=== PATIENT | female | born 1960 | race African-American/Black ===

== ENCOUNTER 2016-11-21 14:00 | Observation (INO) | payer OTHER ==
[~2016-11-21] VITALS: Ht 175.3 cm; Wt 33.1 kg
[2016-11-21] VITALS (8 sets, daily range): BP systolic 122–184; BP diastolic 77–98; PULSE 64–89; RESP 15–18; TEMP 97.2–98.2; O2SAT 97–100
[~2016-11-21 14:00] MED LIST: BAYE325T3 PO; GABA100C2 PO; HYDR-3534 PO; LORTA5 PO; METO25CR PO; METO50TA PO; NITR.4 PO
[2016-11-21 14:48] LABS: AUTOMATED NEUTROPHIL # 4.4 TH/MM3 (1.8-7.7); BASOPHIL % 0.4 % (0.0-2.0); EOSINOPHIL # 0.1 TH/MM3 (0-0.4); EOSINOPHIL % 1.2 % (0.0-4.0); HEMO FLAGS DIFF FINAL; LYMPH % 25.5 % (9.0-44.0); LYMPHOCYTE # 1.9 TH/MM3 (1.0-4.8); MEAN CELL VOLUME 90.8 FL (80.0-100.0); MEAN CORPUSCULAR HEMOGLOBIN 31.3 PG (27.0-34.0); MEAN CORPUSCULAR HGB CONC 34.5 % (32.0-36.0); MONO % 14.4 % (0.0-8.0); NEUT % 58.5 % (16.0-70.0); PLATELET COUNT 196 TH/MM3 (150-450); RED CELL DISTRIBUTION WIDTH 13.5 % (11.6-17.2); WHITE BLOOD COUNT 7.5 TH/MM3 (4.0-11.0)
--- NOTE | 2016-11-21 14:49 | PD ---
HPI Chief Complaint: Dizziness Time Seen by Provider: 14:45 Travel History International Travel<30 days: No Contact w/Intl Traveler<30days: No Traveled to known affect area: No History of Present Illness HPI Patient is a 56-year-old female presenting to the emergency department for evaluation of dizziness and elevated blood pressure reading. Patient states she woke up this morning feeling dizzy, went to her pain management appointment at 10:30 where they took her vital signs and her blood pressure was elevated. She returned home and received a phone call from pain management asking her if she continued to feel dizzy and when patient said yes they advised her to come to the emergency department for evaluation. Patient states she woke up with mid sternal chest pain and shortness of breath as well. She was discharged from the hospital in [facility] at the end of October due to chest pain. She states that she had a negative heart catheterization at that time performed by Dr. Luigi Kaur. Her primary care provider is Dr. Buck. Her medical history is significant for hypertension, hyperlipidemia, paroxysmal atrial fibrillation. Patient is a former smoker, quitting one year ago. PFSH Past Medical History Arthritis: No Asthma: No Atrial Fibrillation: Yes Autoimmune Disease: No Anxiety: No Depression: Yes (PATIENT STATES SOMETIMES) Cancer: No High Cholesterol: Yes Chemotherapy: No Chest Pain: No Congestive Heart Failure: No COPD: No Cerebrovascular Accident: No Diabetes: No Diminished Hearing: No Endocrine: No Gastrointestinal Disorders: Yes GERD: Yes Genitourinary: Yes (PATIENT WAS HOSPITALIZED IN 1985 FOR A KIDNEY ISSUE, DOES NOT REMEMBER WHAT) Headaches: Yes Hiatal Hernia: No Hypertension: Yes Immune Disorder: No Kidney Stones: No Reproductive: No Respiratory: No Migraines: No Radiation Therapy: No Renal Failure: No Seizures: No Sickle Cell Disease: No Sleep Apnea: No Thyroid Disease: No Ulcer: No : 6 Para: 4 Miscarriage: 1 : 1 Tubal Ligation: Yes Past Surgical History Abdominal Surgery: No Cardiac Surgery: No Section: Yes Ear Surgery: No Endocrine Surgery: No Eye Surgery: No Genitourinary Surgery: No Gynecologic Surgery: Yes (, PARTIAL HYSTERECTOMY) Hysterectomy: Yes (PARTIAL) Oral Surgery: No Thoracic Surgery: No Social History Alcohol Use: Yes (1 DRINK DAILY) Tobacco Use: Yes (PK/DAY) Substance Use: Yes (MARIJUANA) Allergies-Medications (Allergen,Severity, Reaction): Coded Allergies: No Known Allergies (Verified , 08/13/13) Reported Meds & Prescriptions Reported Meds & Active Scripts Active Reported Valium (Diazepam) 10 Mg Tab 10 Mg PO ONCE PRN Temazepam 15 Mg Cap 15 Mg PO HS PRN Vitamin D3 (Cholecalciferol) 1,000 Unit Tab 1,000 Units PO DAILY Gabapentin 300 Mg Cap 300 Mg PO HS Tramadol (Tramadol HCl) 50 Mg Tab 50 Mg PO QID PRN Pantoprazole (Pantoprazole Sodium) 40 Mg Tab 40 Mg PO DAILY PRN Flexeril (Cyclobenzaprine HCl) 10 Mg Tab 10 Mg PO HS Buspirone (Buspirone HCl) 15 Mg Tab 15 Mg PO BID PRN Nitroglycerin SL (Nitroglycerin) 0.4 Mg Subl 0.4 Mg SL DIRECTED PRN ONE TABLET UNDER THE TONGUE NEEDED FOR CHEST PAIN, MAY REPEAT EVERY FIVE MINUTES FOR A TOTAL OF 3 DOSES OR CALL 911 IF NO RELIEF Metoprolol Tartrate 50 Mg Tab 50 Mg PO BID Lortab (Hydrocodone-Acetaminophen) 5-325 Mg Tab 1 Tab PO Q6H PRN Aspirin 325 Mg Tab 325 Mg PO DAILY Review of Systems Except as stated in HPI: all other systems reviewed are Neg HENT: No: Headaches Cardiovascular: Positive: Chest Pain or Discomfort Respiratory: Positive: Shortness of Breath Gastrointestinal: No: Nausea, Vomiting, Abdominal Pain Musculoskeletal: No: Myalgias Neurologic: Positive: Dizziness Physical Exam Narrative GENERAL: Well-developed, well-nourished, alert female. Resting comfortably in no acute distress. SKIN: Warm and dry. HEAD: Atraumatic. Normocephalic. EYES: Pupils equal and round. No scleral icterus. No injection or drainage. ENT: No nasal bleeding or discharge. Mucous membranes pink and moist. NECK: Trachea midline. No JVD. CARDIOVASCULAR: Regular rate and rhythm. No murmur appreciated. RESPIRATORY: No accessory muscle use. Clear to auscultation. Breath sounds equal bilaterally. GASTROINTESTINAL: Abdomen soft, non-tender, nondistended. Hepatic and splenic margins not palpable. MUSCULOSKELETAL: No obvious deformities. No clubbing. No cyanosis. No edema. NEUROLOGICAL: Awake and alert. No obvious cranial nerve deficits. Motor grossly within normal limits. Normal speech. PSYCHIATRIC: Appropriate mood and affect; insight and judgment normal. Data Data Last Documented VS Vital Signs Date Time Temp Pulse Resp B/P Pulse Ox O2 Delivery O2 Flow Rate FiO2 11/21/16 17:30 89 16 122/77 98 Room Air 11/21/16 14:02 98.2 Orders Electrocardiogram (11/21/16 ) Ckmb (Isoenzyme) Profile (11/21/16 14:26) Complete Blood Count With Diff (11/21/16 14:26) Comprehensive Metabolic Panel (11/21/16 14:26) Magnesium (Mg) (11/21/16 14:26) Prothrombin Time / Inr (Pt) (11/21/16 14:26) Act Partial Throm Time (Ptt) (11/21/16 14:26) Troponin I (11/21/16 14:26) Chest, Single Ap (11/21/16 14:26) CKMB (11/21/16 14:38) CKMB% (11/21/16 14:38) Mri Brain W/O Contrast (11/21/16 ) Enoxaparin Inj (Lovenox Inj) (11/21/16 18:15) Admit Order (Ed Use Only) (11/21/16 18:08) Labs Laboratory Tests Test 11/21/16 14:38 White Blood Count 7.5 TH/MM3 Red Blood Count 4.40 MIL/MM3 Hemoglobin 13.8 GM/DL Hematocrit 40.0 % Mean Corpuscular Volume 90.8 FL Mean Corpuscular Hemoglobin 31.3 PG Mean Corpuscular Hemoglobin 34.5 % Concent Red Cell Distribution Width 13.5 % Platelet Count 196 TH/MM3 Mean Platelet Volume 10.2 FL Neutrophils (%) (Auto) 58.5 % Lymphocytes (%) (Auto) 25.5 % Monocytes (%) (Auto) 14.4 % Eosinophils (%) (Auto) 1.2 % Basophils (%) (Auto) 0.4 % Neutrophils # (Auto) 4.4 TH/MM3 Lymphocytes # (Auto) 1.9 TH/MM3 Monocytes # (Auto) 1.1 TH/MM3 Eosinophils # (Auto) 0.1 TH/MM3 Basophils # (Auto) 0.0 TH/MM3 CBC Comment DIFF FINAL Differential Comment Prothrombin Time 11.8 SEC Prothromb Time International 1.1 RATIO Ratio Activated Partial 27.7 SEC Thromboplast Time Sodium Level 140 MEQ/L Potassium Level 3.6 MEQ/L Chloride Level 102 MEQ/L Carbon Dioxide Level 25.6 MEQ/L Anion Gap 12 MEQ/L Blood Urea Nitrogen 17 MG/DL Creatinine 0.86 MG/DL Estimat Glomerular Filtration 83 ML/MIN Rate Random Glucose 106 MG/DL Calcium Level 8.9 MG/DL Magnesium Level 1.5 MG/DL Total Bilirubin 0.5 MG/DL Aspartate Amino Transf 31 U/L (AST/SGOT) Alanine Aminotransferase 52 U/L (ALT/SGPT) Alkaline Phosphatase 82 U/L Total Creatine Kinase 316 U/L Creatine Kinase MB 1.0 NG/ML Creatine Kinase MB % 0.3 % Troponin I LESS THAN 0.02 NG/ML Total Protein 7.6 GM/DL Albumin 3.7 GM/DL MDM Medical Decision Making Medical Screen Exam Complete: Yes Emergency Medical Condition: Yes Interpretation(s) Vital Signs Date Time Temp Pulse Resp B/P Pulse Ox O2 Delivery O2 Flow Rate FiO2 11/21/16 14:02 98.2 80 15 184/98 98 Differential Diagnosis Hypertensive urgency versus unstable angina versus nstemi versus vertigo versus other Narrative Course Patient is a 56-year-old female presenting to emergency Department for evaluation of dizziness, chest pain, shortness of breath. Patient does have a significant past medical history as well as a recent workup and admission for chest pain in [facility]. Chest pain protocol initiated. Workup initiated triage, care patient will be transferred to a provider when a medical bed is available. Delfina Zurita Nov 21, 2016 14:49
--- NOTE | 2016-11-21 15:05 | RADRPT ---
EXAM DATE/TIME: 11/21/2016 14:54 [facility] COMPARISON: CHEST SINGLE AP, August 13, 2013, 20:51. INDICATIONS : Chest Pain MEDICAL HISTORY : Hypertension. Afib SURGICAL HISTORY : None. ENCOUNTER: Initial ACUITY: 1 day PAIN SCORE: 5/10 LOCATION: Bilateral chest FINDINGS: A single view of the chest demonstrates the lungs to be symmetrically aerated without evidence of mas s, infiltrate or effusion. The cardiomediastinal contours are unremarkable. Osseous structures are intact. CONCLUSION: No acute disease. Geoffrey Mckeon MD on November 21, 2016 at 15:00 Board Certified Radiologist. This report was verified electronically.
[2016-11-21 15:06] LABS: APTT (PATIENT) 27.7 SEC (24.3-30.1); INTERNATIONAL NORMALIZED RATIO 1.1 RATIO; PROTHROMBIN TIME - PATIENT 11.8 SEC (9.8-11.6)
[2016-11-21 15:12] LABS: ALT (GPT) 52 U/L (10-53); ANION GAP 12 MEQ/L (5-15); AST (GOT) 31 U/L (15-37); BICARBONATE 25.6 MEQ/L (21.0-32.0); BLOOD UREA NITROGEN 17 MG/DL (7-18); CHLORIDE 102 MEQ/L (98-107); GLOMERULAR FILTRATION RATE 83 ML/MIN (>89); MAGNESIUM 1.5 MG/DL (1.5-2.5); POTASSIUM 3.6 MEQ/L (3.5-5.1); SODIUM (NA) 140 MEQ/L (136-145)
[2016-11-21 15:15] LABS: ALKALINE PHOSPHATASE 82 U/L (45-117); CREATINE KINASE 316 U/L (26-192); TOTAL BILIRUBIN ADULT 0.5 MG/DL (0.2-1.0)
--- NOTE | 2016-11-21 16:45 | PD ---
Physical Exam Date Seen by Provider: Nov 21, 2016 Time Seen by Provider: 16:41 Narrative The patient is a 56-year-old after [place] female was initially evaluated in the emergency department and triaged by the mid-level provider. Please refer to the initial history, physical, diagnostic evaluation, and treatment modality plan. The patient was signed out with reevaluation of dizziness pending. Data Data Last Documented VS Vital Signs Date Time Temp Pulse Resp B/P Pulse Ox O2 Delivery O2 Flow Rate FiO2 11/21/16 15:44 70 16 158/95 99 Room Air 11/21/16 14:02 98.2 Orders Electrocardiogram (11/21/16 ) Ckmb (Isoenzyme) Profile (11/21/16 14:26) Complete Blood Count With Diff (11/21/16 14:) Comprehensive Metabolic Panel (11/21/16 14:) Magnesium (Mg) (11/21/16 14:26) Prothrombin Time / Inr (Pt) (11/21/16 14:26) Act Partial Throm Time (Ptt) (11/21/16 14:26) Troponin I (11/21/16 14:26) Chest, Single Ap (11/21/16 14:26) CKMB (11/21/16 14:38) CKMB% (11/21/16 14:38) Mri Brain W/O Contrast (11/21/16 ) Labs Laboratory Tests Test 11/21/16 14:38 White Blood Count 7.5 TH/MM3 Red Blood Count 4.40 MIL/MM3 Hemoglobin 13.8 GM/DL Hematocrit 40.0 % Mean Corpuscular Volume 90.8 FL Mean Corpuscular Hemoglobin 31.3 PG Mean Corpuscular Hemoglobin 34.5 % Concent Red Cell Distribution Width 13.5 % Platelet Count 196 TH/MM3 Mean Platelet Volume 10.2 FL Neutrophils (%) (Auto) 58.5 % Lymphocytes (%) (Auto) 25.5 % Monocytes (%) (Auto) 14.4 % Eosinophils (%) (Auto) 1.2 % Basophils (%) (Auto) 0.4 % Neutrophils # (Auto) 4.4 TH/MM3 Lymphocytes # (Auto) 1.9 TH/MM3 Monocytes # (Auto) 1.1 TH/MM3 Eosinophils # (Auto) 0.1 TH/MM3 Basophils # (Auto) 0.0 TH/MM3 CBC Comment DIFF FINAL Differential Comment Prothrombin Time 11.8 SEC Prothromb Time International 1.1 RATIO Ratio Activated Partial 27.7 SEC Thromboplast Time Sodium Level 140 MEQ/L Potassium Level 3.6 MEQ/L Chloride Level 102 MEQ/L Carbon Dioxide Level 25.6 MEQ/L Anion Gap 12 MEQ/L Blood Urea Nitrogen 17 MG/DL Creatinine 0.86 MG/DL Estimat Glomerular Filtration 83 ML/MIN Rate Random Glucose 106 MG/DL Calcium Level 8.9 MG/DL Magnesium Level 1.5 MG/DL Total Bilirubin 0.5 MG/DL Aspartate Amino Transf 31 U/L (AST/SGOT) Alanine Aminotransferase 52 U/L (ALT/SGPT) Alkaline Phosphatase 82 U/L Total Creatine Kinase 316 U/L Creatine Kinase MB 1.0 NG/ML Creatine Kinase MB % 0.3 % Troponin I LESS THAN 0.02 NG/ML Total Protein 7.6 GM/DL Albumin 3.7 GM/DL [facility] Medical Record Reviewed: Yes Supervised Visit with MATT: Yes Interpretation(s) Chest x-rays unremarkable Laboratory Tests Test 11/21/16 14:38 White Blood Count 7.5 TH/MM3 Red Blood Count 4.40 MIL/MM3 Hemoglobin 13.8 GM/DL Hematocrit 40.0 % Mean Corpuscular Volume 90.8 FL Mean Corpuscular Hemoglobin 31.3 PG Mean Corpuscular Hemoglobin 34.5 % Concent Red Cell Distribution Width 13.5 % Platelet Count 196 TH/MM3 Mean Platelet Volume 10.2 FL Neutrophils (%) (Auto) 58.5 % Lymphocytes (%) (Auto) 25.5 % Monocytes (%) (Auto) 14.4 % Eosinophils (%) (Auto) 1.2 % Basophils (%) (Auto) 0.4 % Neutrophils # (Auto) 4.4 TH/MM3 Lymphocytes # (Auto) 1.9 TH/MM3 Monocytes # (Auto) 1.1 TH/MM3 Eosinophils # (Auto) 0.1 TH/MM3 Basophils # (Auto) 0.0 TH/MM3 CBC Comment DIFF FINAL Differential Comment Prothrombin Time 11.8 SEC Prothromb Time International 1.1 RATIO Ratio Activated Partial 27.7 SEC Thromboplast Time Sodium Level 140 MEQ/L Potassium Level 3.6 MEQ/L Chloride Level 102 MEQ/L Carbon Dioxide Level 25.6 MEQ/L Anion Gap 12 MEQ/L Blood Urea Nitrogen 17 MG/DL Creatinine 0.86 MG/DL Estimat Glomerular Filtration 83 ML/MIN Rate Random Glucose 106 MG/DL Calcium Level 8.9 MG/DL Magnesium Level 1.5 MG/DL Total Bilirubin 0.5 MG/DL Aspartate Amino Transf 31 U/L (AST/SGOT) Alanine Aminotransferase 52 U/L (ALT/SGPT) Alkaline Phosphatase 82 U/L Total Creatine Kinase 316 U/L Creatine Kinase MB 1.0 NG/ML Creatine Kinase MB % 0.3 % Troponin I LESS THAN 0.02 NG/ML Total Protein 7.6 GM/DL Albumin 3.7 GM/DL EKG reveals sinus rhythm with a rate of 64. Inverted T waves noted in lead 3 and aVF. MRI of the brain reveals 2 small approximate 4 mm foci of increased signal seen at the superior medial right parietal lobe which may represent some minimal areas of infarction. Differential Diagnosis Differential diagnosis includes cerebellar infarct, acoustic neuroma, labyrinthitis, Mnire's disease, vertigo, hypertension, arrhythmia, peripheral vertigo. Narrative Course I, Dr. Neri, have reviewed the advance practice practitioner's documentation and am in agreement, met with the patient face to face, made the diagnosis, and the medical decision making was done by me. *My assessment and Findings: The patient is a 56-year-old female was initially evaluated by the mid-level provider. Please refer to the initial history, physical, diagnostic evaluation, treatment modality plan. Patient is intermittent history of dizziness which she describes as feeling off balance, occasional presyncopal, with lightheadedness. The patient states she has a history of dizziness and attributed it to cerumen impaction, states she's had her ears clear past which did help with her symptoms. However, the patient cleared her this time and her symptoms did not improve. The patient drove to her pain management doctor, who noted her blood pressure was significantly elevated, and referred her to the emergency department. The patient's blood pressure has improved, however, she continues to complain of symptoms. Physical examination was performed in the patient's EACs are clear. Cranial nerves II-12 are grossly intact. The patient had no drift of the upper or lower extremities. Alternating hand movements and finger to nose were normal. [id number] were normal. Sensation was symmetric on the upper and lower extremity bilaterally. However, patient had difficulty walking heel to toe and tandem and slight drift with Romberg, therefore, MRI the brain was ordered to rule out cerebellar infarct. MRI reveals 2 small approximate 4 mm foci of increased signal seen in the superior medial right parietal lobe which may represent some minimal areas of infarction. The patient does have a history of atrial fibrillation and hypertension, is currently in sinus rhythm. The patient 's dizziness may be secondary to CVA versus peripheral causes of vertigo/ dizziness, however, MRI is abnormal. Therefore, patient will be admitted and may benefit from ultrasound of the carotids, echocardiogram, and telemetry monitoring. The patient has [facility], therefore, the on-call [facility] physician was paged for admission. I discussed the patient with Dr. Bautista who agrees with admission. After discussion as patient does have a history of A. fib, patient was administered Lovenox 100 mg subcutaneous to cover her until echocardiogram can be performed to evaluate for atrial/ ventricular thrombus. The patient already took an aspirin this morning, 325 mg , therefore, another dose was not administered. Physician Communication Physician Communication I discussed the patient with Dr. Bautista who agrees with admission. Diagnosis Primary Impression: CVA (cerebral vascular accident) Qualified Code: I63.9 - Cerebrovascular accident (CVA), unspecified mechanism Additional Impressions: Hypertension Qualified Code: I10 - Essential hypertension Dizziness Admitting Information Admitting Physician Requests: Admit Condition: Stable Ignacio Neri MD Nov 21, 2016 16:45
--- NOTE | 2016-11-21 17:30 | RADRPT ---
EXAM DATE/TIME: 11/21/2016 16:59 [facility] COMPARISON: No previous studies available for comparison. INDICATIONS : CVA. Dizziness. MEDICAL HISTORY : Hypertension. SURGICAL HISTORY : section. Hysterectomy. Tubal ligation. ENCOUNTER: Subsequent ACUITY: 1 day PAIN SCORE: 5/10 LOCATION: cranial TECHNIQUE: Multiplanar, multisequence MRI of the brain was performed without contrast. FINDINGS: CEREBRUM: The ventricles are normal for age. No evidence of midline shift, mass lesion, hemorrhage or acute in farction. No extraaxial fluid collections are seen. The pituitary gland and suprasellar cistern are normal in configuration. There is a focal area of low signal seen in the right parietal region on th e SWI images likely related to an area of calcification in the posterior falx. WHITE MATTER: There are a few minimal areas of increased signal seen in the frontal white matter. POSTERIOR FOSSA: The cerebellum and brainstem are intact. The 4th ventricle is midline. The cerebellopontine angle is unremarkable. The cerebellar tonsils are normal in position. DIFFUSION IMAGING: There is minimal focal increased signal seen at the superior medial right parietal lobe. 2 small foci are seen measuring no more than 4 mm. EXTRACRANIAL: The visualized portions of the orbits and paranasal sinuses are unremarkable. CONCLUSION: 2 small approximate 4 mm foci of increased signal seen at the superior medial right parietal lobe whi ch may represent some minimal areas of infarction. Geoffrey Mckeon MD on November 21, 2016 at 17:21 Board Certified Radiologist. This report was verified electronically.
[2016-11-21] MEDS ORDERED: ENOXAPARIN SODIUM 100 MG/ML SYRINGE SQ ONE (18:15)
[2016-11-21] MEDS ORDERED: NITROGLYCERIN 0.4 MG SL 25 TABS/BTL SL PRN (18:30)
--- NOTE | 2016-11-21 18:54 | HHI.HP ---
HPI Service [facility] Hospitalists Primary Care Physician Kathleen Buck M.D. Admission Diagnosis CVA, dizziness, hypertension Chief Complaint: dizziness for a few days unsteady on feet sent by PCP and pain management to er Travel History International Travel<30 Days: No Contact w/Intl Traveler <30 Da: No Traveled to Known Affected Are: No History of Present Illness 56 y/o black female with history of paroxysmal atrial fib and has been on metoprolol 50 bid with 325 aspirin. Patient has for last couple of days has had increasing dizziness and some off balance and today had some atypical chest pain and mild shortness of breath . Patient had pain clinic appt for chronic pain and while at pain clinic it was noted she had increased blood pressure . Patient was given which she did not fill prescription of gabapentin and flexeril and ultram ,they called patient as did her PCP and was still dizzy and they recommended she come to er for evaluation. [place] er initially had elevated blood pressure but that came down . Ekg showed t wave inversion 3 avf and patient did state was in hospital in [facility] and had negative cath about 1 month ago. Patient underwent MRI brain which showed 2 foci of increased signal rt parietal lobe suggestive of infarct . Patient will be admitted for further work up. Patient has had in past several episodes of dizziness but was related to cerumen impaction. Patient denies any nausea ,vomit,diaphoresis and SOB has improved and does still have some mild chest discomfort but seems to be associated with movement. Review of Systems Constitutional: COMPLAINS OF: Dizziness Cardiovascular: COMPLAINS OF: Chest pain Neurologic: COMPLAINS OF: Abnormal gait Past Family Social History Past Medical History paroxysmal afib,hyperlipidemia,hypertension GERD,headaches Past Surgical History partial hysterectomy Reported Medications metoprolol 50 bid asa 325,lortab 5/325 for pain Allergies: Coded Allergies: No Known Allergies (Verified , 08/13/13) Social History 1 drink a day former smoker last 1 year ago ,positive marijuana Physical Exam Vital Signs Vital Signs Date Time Temp Pulse Resp B/P Pulse Ox O2 Delivery O2 Flow Rate FiO2 11/21/16 18:27 66 18 165/88 100 Room Air 11/21/16 17:30 89 16 122/77 98 Room Air 11/21/16 15:44 70 16 158/95 99 Room Air 11/21/16 15:44 99 Room Air 11/21/16 14:02 98.2 80 15 184/98 98 Physical Exam GENERAL: This is a well-nourished, well-developed patient, in no apparent distress. SKIN: No rashes, ecchymoses or lesions. Cool and dry. HEAD: Atraumatic. Normocephalic. No temporal or scalp tenderness. EYES: Pupils equal round and reactive. Extraocular motions intact. No scleral icterus. No injection or drainage. ENT: Nose without bleeding, purulent drainage or septal hematoma. Throat without erythema, tonsillar hypertrophy or exudate. Uvula midline. Airway patent.ears no cerumen NECK: Trachea midline. No JVD or lymphadenopathy. Supple, nontender, no meningeal signs. CARDIOVASCULAR: Regular rate and rhythm without murmurs, gallops, or rubs. RESPIRATORY: Clear to auscultation. Breath sounds equal bilaterally. No wheezes , rales, or rhonchi. GASTROINTESTINAL: Abdomen soft, non-tender, nondistended. No hepato-splenomegaly , or palpable masses. No guarding. MUSCULOSKELETAL: Extremities without clubbing, cyanosis, or edema. No joint tenderness, effusion, or edema noted. No calf tenderness. Negative Homans sign bilaterally. NEUROLOGICAL: Awake and alert. Cranial nerves II through XII intact. Motor and sensory grossly within normal limits. Five out of 5 muscle strength in all muscle groups. Normal speech. Laboratory Laboratory Tests Test 11/21/16 14:38 White Blood Count 7.5 Red Blood Count 4.40 Hemoglobin 13.8 Hematocrit 40.0 Mean Corpuscular Volume 90.8 Mean Corpuscular Hemoglobin 31.3 Mean Corpuscular Hemoglobin 34.5 Concent Red Cell Distribution Width 13.5 Platelet Count 196 Mean Platelet Volume 10.2 Neutrophils (%) (Auto) 58.5 Lymphocytes (%) (Auto) 25.5 Monocytes (%) (Auto) 14.4 Eosinophils (%) (Auto) 1.2 Basophils (%) (Auto) 0.4 Neutrophils # (Auto) 4.4 Lymphocytes # (Auto) 1.9 Monocytes # (Auto) 1.1 Eosinophils # (Auto) 0.1 Basophils # (Auto) 0.0 CBC Comment DIFF FINAL Differential Comment Prothrombin Time 11.8 Prothromb Time International 1.1 Ratio Activated Partial 27.7 Thromboplast Time Sodium Level 140 Potassium Level 3.6 Chloride Level 102 Carbon Dioxide Level 25.6 Anion Gap 12 Blood Urea Nitrogen 17 Creatinine 0.86 Estimat Glomerular Filtration 83 Rate Random Glucose 106 Calcium Level 8.9 Magnesium Level 1.5 Total Bilirubin 0.5 Aspartate Amino Transf 31 (AST/SGOT) Alanine Aminotransferase 52 (ALT/SGPT) Alkaline Phosphatase 82 Total Creatine Kinase 316 Creatine Kinase MB 1.0 Creatine Kinase MB % 0.3 Troponin I LESS THAN 0.02 Total Protein 7.6 Albumin 3.7 Result Diagram: 11/21/16 1438 11/21/16 1438 Imaging Last 24 hours Impressions Chest X-Ray 11/21/16 1426 Signed Impressions: Service Date/Time: Monday, November 21, 2016 14:54 - CONCLUSION: No acute disease. Geoffrey Mckeon MD MRI-2 smal foci increased signal rt parietal lobe suggesting infarct Course ekg NSR t wave 3 ,avf no acute changes Assessment and Plan Problem List: (1) CVA (cerebral vascular accident) Status: Acute Plan: will continue asa and was given lovenox times 1 100 mg will obtain neuro consult and carotid ultrasound and 2d echo (2) Hypertension Status: Chronic Plan: on metoprolol for hypertension and hx a fib will continue use prn meds for any elevation according to patient was on some type diuretic at home (3) Dizziness Status: Acute Plan: acute on chronic may be related to abnormal MRI vs hypertension (4) Paroxysmal atrial fibrillation Status: Chronic Plan: in sinus now will continue metoprolol get 2d echo cardiac evaluation (5) Chest pain Status: Acute Plan: seems more non cardaic will recheck labs in am and ekg as does have hx parox a fib will get cardiac evaluation as well according to patient recent normal cath Assessment and Plan further plan as case develops Code Status full Discussed Condition With patient Physician Certification 2 Midnight Certification Type: Admission for Inpatient Services Order for Inpatient Services The services are ordered in accordance with Medicare regulations or non- Medicare payer requirements, as applicable. In the case of services not specified as inpatient-only, they are appropriately provided as inpatient services in accordance with the 2-midnight benchmark. Estimated LOS (days): 2 2 days is the estimated time the patient will need to remain in the hospital, assuming treatment plan goals are met and no additional complications. Post-Hospital Plan: Not yet determined Problem Qualifiers (1) CVA (cerebral vascular accident): Qualified Code: I63.9 - Cerebrovascular accident (CVA), unspecified mechanism (2) Hypertension: Qualified Code: I10 - Essential hypertension Phil Bautista MD Nov 21, 2016 18:54
[2016-11-21] MEDS ORDERED: NALOXONE HCL 0.4 MG/ML AMP IV PRN (19:00)
[2016-11-21] MEDS ORDERED: ENALAPRILAT 1.25 MG/ML VIAL IV PUSH PRN (19:00)
[2016-11-21] MEDS ORDERED: BISACODYL 10 MG SUPP PR PRN (19:00)
[2016-11-21] MEDS ORDERED: SODIUM CHLORIDE 0.9% FLUSH 5 ML FLUSH FLUSH PRN (19:00)
[2016-11-21] MEDS ORDERED: HYDR-3533 PO (19:28)
[2016-11-21] MEDS ORDERED: ASPI325T PO (19:28)
[2016-11-21] MEDS ORDERED: METO50TA PO (19:28)
[2016-11-21] MEDS ORDERED: NITR1SUB3 SL (19:28)
[2016-11-21] MEDS ORDERED: DIAZ10 PO (19:48)
[2016-11-21] MEDS ORDERED: VITA100018 PO (19:48)
[2016-11-21] MEDS ORDERED: TRAM50TA PO (19:48)
[2016-11-21] MEDS ORDERED: TEMA15CA PO (19:48)
[2016-11-21] MEDS ORDERED: PANT40TA3 PO (19:48)
[2016-11-21] MEDS ORDERED: CYCL1TAB29 PO (19:48)
[2016-11-21] MEDS ORDERED: GABA300C5 PO (19:48)
[2016-11-21] MEDS ORDERED: BUSP15TA PO (19:48)
[2016-11-21] MEDS ORDERED: HYDR25TA5 PO (20:28)
[2016-11-21] MEDS: METOPROLOL TARTRATE 50 MG TAB PO SCH (21:35)
[2016-11-21] MEDS: ACETAMINOPHEN/HYDROcodone 325 MG/5 MG TAB PO PRN (21:36)
[2016-11-21] MEDS: SODIUM CHLORIDE 0.9% FLUSH 5 ML FLUSH FLUSH SCH (21:36)
--- NOTE | 2016-11-21 22:11 | RADRPT ---
EXAM DATE/TIME: 11/21/2016 21:34 [facility] COMPARISON: No previous studies available for comparison. INDICATIONS : Cerebrovascular accident. MEDICAL HISTORY : Hypertension. Gastroesophageal reflux disease. Afib. SURGICAL HISTORY : Catheteriaztion. Partial hysterectomy. ENCOUNTER: Initial ACUITY: 1 day PAIN SCORE: 6/10 LOCATION: Bilateral neck PEAK SYSTOLIC VELOCITIES (cm/sec): ICA/CCA RATIO: Right: 1.4 Left: 0.9 ICA: Right: 124 Left: 95 CCA: Right: 89 Left: 105 ECA: Right: 94 Left: 77 VERTEBRAL: Right: 58 antegrade Left: 74 antegrade Elevated flow velocities and ICA/CCA ratios have been found to correlate with increased degrees of vessel stenosis, calculated as percentage of diameter relative to a normal segment of distal ICA/CCA FINDINGS: RIGHT CAROTID: No significant stenosis is visualized. The waveforms are within normal limits. LEFT CAROTID: There is mild soft plaquing at the bifurcation. No significant stenosis is visualized. The waveforms are within normal limits. VERTEBRAL ARTERIES: Antegrade flow is seen in both vertebral arteries. MISCELLANEOUS: None. CONCLUSION: 1. Mild soft plaquing at the left carotid bifurcation. 2. No focal high-grade or hemodynamically significant stenosis. Carmelo Bailey MD on November 21, 2016 at 22:08 Board Certified Radiologist. This report was verified electronically.
[2016-11-21] MEDS: TEMAZEPAM 15 MG CAP PO PRN (22:16)
[2016-11-22 00:08] VITALS: BP 107/60; PULSE 73; RESP 18; TEMP 97.9; O2SAT 97
[2016-11-22 04:00] VITALS: BP 113/61; PULSE 67; RESP 18; TEMP 96.4; O2SAT 96
[2016-11-22 07:32] VITALS: BP 125/72; PULSE 75; RESP 18; TEMP 96.6; O2SAT 97
[2016-11-22] MEDS: METOPROLOL TARTRATE 50 MG TAB PO SCH ×2 (07:47→21:06)
[2016-11-22] MEDS: ASPIRIN EC 325 MG TABEC PO SCH (07:47)
[2016-11-22] MEDS: ACETAMINOPHEN/HYDROcodone 325 MG/5 MG TAB PO PRN ×2 (07:47→21:06)
[2016-11-22] MEDS: PANTOPRAZOLE SOD 40 MG DELAYED RELEASE TAB PO SCH (07:47)
--- NOTE | 2016-11-22 07:50 | PD.CONS ---
HPI Service CV Consult Requested By Dr. Bautista Reason for Consult paroxysmal afib, CVA Primary Care Physician Kathleen Buck M.D. History of Present Illness 56 yo AAF with history of paroxysmal afib and HTN who presented to pain management yesterday with elevated BP and dizziness, PCP then directed her to ED for admission. She admits to feeling palpitations earlier this week while shopping and intermittent dizziness. She was diagnosed with pafib in 2012 and has been maintained on bb and ASA. Sep 2016 she was admitted to [facility] for chest pain and ultimately had a normal heart catheterization. This morning she continues to feel "a little out of it". Denies chest pain or SOB. (Tata Porras) Review of Systems Consitutional: DENIES: Fever, Chills, Weight gain, Weight loss Respiratory: DENIES: Cough, Snoring, Shortness of breath, Wheezing, Sputum production Cardiovascular: DENIES: Chest pain, Syncope, Tachycardia Gastrointestinal: DENIES: Nausea, Vomiting, Change in bowel habits, Reflux, Bloody stools, Melena (Tata Porras) Past Family Social History Allergies: Coded Allergies: No Known Allergies (Verified , 08/13/13) Past Medical History paroxysmal afib,hyperlipidemia,hypertension GERD,headaches Past Surgical History partial hysterectomy Reported Medications Reported Meds & Active Scripts Active Reported Hydrochlorothiazide 25 Mg Tab 25 Mg PO DAILY Valium (Diazepam) 10 Mg Tab 10 Mg PO ONCE PRN Temazepam 15 Mg Cap 15 Mg PO HS PRN Vitamin D3 (Cholecalciferol) 1,000 Unit Tab 1,000 Units PO DAILY Gabapentin 300 Mg Cap 300 Mg PO HS Tramadol (Tramadol HCl) 50 Mg Tab 50 Mg PO QID PRN Pantoprazole (Pantoprazole Sodium) 40 Mg Tab 40 Mg PO DAILY PRN Flexeril (Cyclobenzaprine HCl) 10 Mg Tab 10 Mg PO HS Buspirone (Buspirone HCl) 15 Mg Tab 15 Mg PO BID PRN Nitroglycerin SL (Nitroglycerin) 0.4 Mg Subl 0.4 Mg SL DIRECTED PRN ONE TABLET UNDER THE TONGUE NEEDED FOR CHEST PAIN, MAY REPEAT EVERY FIVE MINUTES FOR A TOTAL OF 3 DOSES OR CALL 911 IF NO RELIEF Metoprolol Tartrate 50 Mg Tab 50 Mg PO BID Lortab (Hydrocodone-Acetaminophen) 5-325 Mg Tab 1 Tab PO Q6H PRN Aspirin 325 Mg Tab 325 Mg PO DAILY Active Ordered Medications Current Medications Medications (Trade) Dose Ordered Sig/Gemini Route Start Time Stop Time Status Last Admin (Ecotrin Ec) 325 mg DAILY PO 11/22/16 09:00 ([place] 5-325 Mg) 1 tab Q6H PRN PO 11/21/16 18:30 11/21/16 21:36 (Lopressor) 50 mg BID PO 11/21/16 21:00 11/21/16 21:35 (Nitrostat Sl) 0.4 mg UNSCH PRN SL 11/21/16 18:30 (Vasotec Inj) 1.25 mg Q6H PRN IV PUSH 11/21/16 19:00 (NS Flush) 2 ml UNSCH PRN FLUSH 11/21/16 19:00 (NS Flush) 2 ml BID FLUSH 11/21/16 21:00 11/21/16 21:36 (Dulcolax Supp) 10 mg DAILY PRN HI 11/21/16 19:00 (Narcan Inj) 0.4 mg UNSCH PRN IV 11/21/16 19:00 (Restoril) 15 mg HS PRN PO 11/21/16 20:45 11/21/16 22:16 (Protonix) 40 mg DAILY PO 11/22/16 09:00 Family History non contributory Social History 1 drink a day former smoker last 1 year ago ,positive marijuana (Tata Porras) Physical Exam Vital Signs Vital Signs Date Time Temp Pulse Resp B/P Pulse Ox O2 Delivery O2 Flow Rate FiO2 11/22/16 07:32 96.6 75 18 125/72 97 11/22/16 04:00 96.4 67 18 113/61 96 11/22/16 00:08 97.9 73 18 107/60 97 11/21/16 23:00 78 11/21/16 20:18 97.2 69 18 139/92 97 11/21/16 19:17 64 18 152/86 99 Room Air 11/21/16 18:27 66 18 165/88 100 Room Air 11/21/16 17:30 89 16 122/77 98 Room Air 11/21/16 15:44 70 16 158/95 99 Room Air 11/21/16 15:44 99 Room Air 11/21/16 14:02 98.2 80 15 184/98 98 Physical Exam SKIN: Warm and dry. ENT: No nasal bleeding or discharge. NECK: Trachea midline. No JVD. CARDIOVASCULAR: Regular rate and rhythm. No murmurs RESPIRATORY: No accessory muscle use. Clear to auscultation. Breath sounds equal bilaterally. GASTROINTESTINAL: Abdomen soft, non-tender, nondistended. MUSCULOSKELETAL: Extremities without clubbing, cyanosis, or edema. No obvious deformities. NEUROLOGICAL: Awake and alert. No obvious cranial nerve deficits. Normal speech. PSYCHIATRIC: Appropriate mood and affect; insight and judgment normal. Laboratory Laboratory Tests Test 11/21/16 14:38 White Blood Count 7.5 Red Blood Count 4.40 Hemoglobin 13.8 Hematocrit 40.0 Mean Corpuscular Volume 90.8 Mean Corpuscular Hemoglobin 31.3 Mean Corpuscular Hemoglobin 34.5 Concent Red Cell Distribution Width 13.5 Platelet Count 196 Mean Platelet Volume 10.2 Neutrophils (%) (Auto) 58.5 Lymphocytes (%) (Auto) 25.5 Monocytes (%) (Auto) 14.4 Eosinophils (%) (Auto) 1.2 Basophils (%) (Auto) 0.4 Neutrophils # (Auto) 4.4 Lymphocytes # (Auto) 1.9 Monocytes # (Auto) 1.1 Eosinophils # (Auto) 0.1 Basophils # (Auto) 0.0 CBC Comment DIFF FINAL Differential Comment Prothrombin Time 11.8 Prothromb Time International 1.1 Ratio Activated Partial 27.7 Thromboplast Time Sodium Level 140 Potassium Level 3.6 Chloride Level 102 Carbon Dioxide Level 25.6 Anion Gap 12 Blood Urea Nitrogen 17 Creatinine 0.86 Estimat Glomerular Filtration 83 Rate Random Glucose 106 Calcium Level 8.9 Magnesium Level 1.5 Total Bilirubin 0.5 Aspartate Amino Transf 31 (AST/SGOT) Alanine Aminotransferase 52 (ALT/SGPT) Alkaline Phosphatase 82 Total Creatine Kinase 316 Creatine Kinase MB 1.0 Creatine Kinase MB % 0.3 Troponin I LESS THAN 0.02 Total Protein 7.6 Albumin 3.7 (Tata Porras) Result Diagram: 11/21/16 1438 11/21/16 1438 Imaging Last Impressions Chest X-Ray 11/21/16 1426 Signed Impressions: Service Date/Time: Monday, November 21, 2016 14:54 - CONCLUSION: No acute disease. Geoffrey Mckeon MD Carotid Artery Ultrasound 11/21/16 0000 Signed Impressions: Service Date/Time: Monday, November 21, 2016 21:34 - CONCLUSION: 1. Mild soft plaquing at the left carotid bifurcation. 2. No focal high-grade or hemodynamically significant stenosis. Carmelo Bailey MD Brain MRI 11/21/16 0000 Signed Impressions: Service Date/Time: Monday, November 21, 2016 16:59 - CONCLUSION: 2 small approximate 4 mm foci of increased signal seen at the superior medial right parietal lobe which may represent some minimal areas of infarction. Geoffrey Mckeon MD (Tata Porras) Assessment and Plan Problem List: (1) Paroxysmal atrial fibrillation (2) CVA (cerebral vascular accident) (3) Hypertension Assessment and Plan 56 yo AAF with history of pafib and HTN admitted for dizziness and HTN. pafib- tele reviewed, remains in NSR. cont metoprolol and ASA. CHADS-VASC=4, in light of recent CVA will need to start anticoagulant HTN- SBP has normalized (Tata Porras) Assessment and Plan afib CVA start oral antiocoagulant if ok with neuro currently NSR asa 81 if anticoagulation started will sign off call with further questions (Denzel Clark MD) Problem Qualifiers (1) CVA (cerebral vascular accident): Qualified Code: I63.9 - Cerebrovascular accident (CVA), unspecified mechanism (2) Hypertension: Qualified Code: I10 - Essential hypertension Tata Porras Nov 22, 2016 07:50 Denzel Clark MD Nov 22, 2016 08:13
[2016-11-22] MEDS: SODIUM CHLORIDE 0.9% FLUSH 5 ML FLUSH FLUSH SCH ×2 (08:48→21:06)
--- NOTE | 2016-11-22 11:05 | MB ---
cc: EILEEN HERNANDEZ M.D. DATE OF CONSULTATION 11/22/2016 REASON FOR CONSULTATION This is a 56-year-old woman with a history of atrial fibrillation, paroxysmal. She comes in because of dizziness. It is a bit difficult but she has been having some dizziness for the past couple of months. It may be positional, but difficult to say. At times, she seems to indicate vertigo, but there are no other symptoms such as nausea, vomiting, no headaches, no double vision, no paresthesias. She was in pain management yesterday. She has been in pain management for the lower back and she was dizzy and hypertensive and she was brought to the hospital. An MRI of the brain showed some possible two areas of very tiny infarcts in the right parietal lobe. NEUROLOGICAL EXAM Neurologic exam is essentially normal at bedside. She is alert, pleasant, and oriented. Mentation normal. Ocular movements, Visual key full. She has good strength throughout and reflexes were trace versus absent. Plantar responses are flexor. Reported sinus rhythm during this admission. LABS Reviewed IMAGING MRI brain reviewed. CBC is normal. Chemistry is essentially normal with CPK elevated to 316. INR 1.1. ASSESSMENT Dizziness, possibly related to cerebrovascular disease. Very tiny area of possible acute or subacute stroke right parietal which is probably incidental here. If anything, she would have a brain stem ischemia to account for the dizziness. Anyway, with her history of paroxysmal atrial fibrillation, I would certainly agree with long-term anticoagulation for this patient. She has had a carotid ultrasound which was unremarkable. I am going to add an MRA [place] of [place] as well and once she is started on anticoagulation, she probably could be discharged home. Thank you for asking us to assist in her care. MD KAYCE Hood/TAMANNA /10:38 AM /10:48 AM
[2016-11-22] MEDS ORDERED: busPIRone HCL 5 MG TAB PO PRN (12:15)
[2016-11-22] MEDS ORDERED: traMADol HCL 50 MG TAB PO PRN (12:15)
--- NOTE | 2016-11-22 12:20 | HHI.PR ---
Subjective Remarks Pt reports that she is still having dizziness more so when she stands up. Denies any headaches, weakness, speech changes. Objective Vitals Vital Signs Date Time Temp Pulse Resp B/P Pulse Ox O2 Delivery O2 Flow Rate FiO2 11/22/16 08:47 18 11/22/16 07:32 96.6 75 18 125/72 97 11/22/16 04:00 96.4 67 18 113/61 96 11/22/16 00:08 97.9 73 18 107/60 97 11/21/16 23:00 78 11/21/16 20:18 97.2 69 18 139/92 97 11/21/16 19:17 64 18 152/86 99 Room Air 11/21/16 18:27 66 18 165/88 100 Room Air 11/21/16 17:30 89 16 122/77 98 Room Air 11/21/16 15:44 70 16 158/95 99 Room Air 11/21/16 15:44 99 Room Air 11/21/16 14:02 98.2 80 15 184/98 98 11/21/16 11/21/16 11/22/16 15:00 23:00 07:00 Intake Total 300 ml Balance 300 ml Intake Oral 300 ml # Voids 1 # Bowel Movements 0 Result Diagram: 11/21/16 1438 11/21/16 1438 Other Results Laboratory Tests Test 11/21/16 11/22/16 14:38 07:28 White Blood Count 7.5 TH/MM3 Red Blood Count 4.40 MIL/MM3 Hemoglobin 13.8 GM/DL Hematocrit 40.0 % Mean Corpuscular Volume 90.8 FL Mean Corpuscular Hemoglobin 31.3 PG Mean Corpuscular Hemoglobin 34.5 % Concent Red Cell Distribution Width 13.5 % Platelet Count 196 TH/MM3 Mean Platelet Volume 10.2 FL Neutrophils (%) (Auto) 58.5 % Lymphocytes (%) (Auto) 25.5 % Monocytes (%) (Auto) 14.4 % Eosinophils (%) (Auto) 1.2 % Basophils (%) (Auto) 0.4 % Neutrophils # (Auto) 4.4 TH/MM3 Lymphocytes # (Auto) 1.9 TH/MM3 Monocytes # (Auto) 1.1 TH/MM3 Eosinophils # (Auto) 0.1 TH/MM3 Basophils # (Auto) 0.0 TH/MM3 CBC Comment DIFF FINAL Differential Comment Prothrombin Time 11.8 SEC Prothromb Time International 1.1 RATIO Ratio Activated Partial 27.7 SEC Thromboplast Time Sodium Level 140 MEQ/L Potassium Level 3.6 MEQ/L Chloride Level 102 MEQ/L Carbon Dioxide Level 25.6 MEQ/L Anion Gap 12 MEQ/L Blood Urea Nitrogen 17 MG/DL Creatinine 0.86 MG/DL Estimat Glomerular Filtration 83 ML/MIN Rate Random Glucose 106 MG/DL Calcium Level 8.9 MG/DL Magnesium Level 1.5 MG/DL Total Bilirubin 0.5 MG/DL Aspartate Amino Transf 31 U/L (AST/SGOT) Alanine Aminotransferase 52 U/L (ALT/SGPT) Alkaline Phosphatase 82 U/L Total Creatine Kinase 316 U/L Creatine Kinase MB 1.0 NG/ML Creatine Kinase MB % 0.3 % Troponin I LESS THAN 0.02 LESS THAN 0.02 NG/ML NG/ML Total Protein 7.6 GM/DL Albumin 3.7 GM/DL Imaging Last Impressions Head Magnetic Resonance Angiography 11/22/16 0000 Signed Impressions: Service Date/Time: Tuesday, November 22, 2016 11:49 - CONCLUSION: 4 mm aneurysm in the left supraclinoid portion of the internal carotid artery. Geoffrey Mckeon MD Chest X-Ray 11/21/16 1426 Signed Impressions: Service Date/Time: Monday, November 21, 2016 14:54 - CONCLUSION: No acute disease. Geoffrey Mckeon MD Carotid Artery Ultrasound 11/21/16 0000 Signed Impressions: Service Date/Time: Monday, November 21, 2016 21:34 - CONCLUSION: 1. Mild soft plaquing at the left carotid bifurcation. 2. No focal high-grade or hemodynamically significant stenosis. Carmelo Bailey MD Brain MRI 11/21/16 0000 Signed Impressions: Service Date/Time: Monday, November 21, 2016 16:59 - CONCLUSION: 2 small approximate 4 mm foci of increased signal seen at the superior medial right parietal lobe which may represent some minimal areas of infarction. Geoffrey Mckeon MD Objective Remarks General: NAD, AAOx3 Chest: CTA Cardiac: Regular Abd: +BS, soft ND/NT Ext: No edema A/P Problem List: (1) CVA (cerebral vascular accident) Status: Acute Plan: - Pt presented to the ED with dizziness and elevated blood pressure. - Pt with a hx of paroxysmal atrial fibrillation - She reports that she has had intermittent dizziness for a few months. - MRI Brain (11/21) --> 2 small approximate 4 mm foci of increased signal seen at the superior medial right parietal lobe which may represent some minimal areas of infarction. - Carotid US (11/21) --> Mild soft plaquing at the left carotid bifurcation. No focal high-grade or hemodynamically significant stenosis. - Cardiology has evaluated and no evidence on telemetry of atrial fibrillation but given pts hx of paroxysmal a. fib and findings of possible stroke on MRI they have recommended anticoagulation if cleared by Neuro. - Neurology has evaluated and agree with rat exterminator anticoagulation. - MRA of the brain (11/22) --> 4 mm aneurysm in the left supraclinoid portion of the internal carotid artery. - Neurosurgery has been consulted to evaluate to see if any intervention is necessary for this aneurysm or just close monitoring as an outpt. - Its unclear if her dizziness is related to the noted right parietal CVA. - ASA 325mg po daily - Pt is on BB - 2D echo is pending. (2) Hypertension Status: Chronic Plan: - BP is stable on Metoprolol - Pt also takes HCTZ 25mg po daily as an outpt, this is on hold for now. (3) Dizziness Status: Acute Plan: acute on chronic may be related to abnormal MRI vs hypertension (4) Paroxysmal atrial fibrillation Status: Chronic Plan: - Pt has remained in NSR - Continue metoprolol (5) Chest pain Status: Acute Plan: - Atypical chest pain, seems to be non cardiac - CE are negative. - Cardiology has evaluated and no need for further evaluation from a cardiac standpoint at this time. Assessment and Plan Patient examined. Assessment and plan formulated with Kareen Tam PA-C. I agree with the above. Problem Qualifiers (1) CVA (cerebral vascular accident): Qualified Code: I63.9 - Cerebrovascular accident (CVA), unspecified mechanism (2) Hypertension: Qualified Code: I10 - Essential hypertension Kareen Tam Nov 22, 2016 12:20 Omar Ernst DO Nov 23, 2016 16:01
[2016-11-22 12:44] VITALS: BP 122/64; PULSE 59; RESP 18; TEMP 96.6; O2SAT 96
--- NOTE | 2016-11-22 12:58 | RADRPT ---
EXAM DATE/TIME: 11/22/2016 11:49 [facility] COMPARISON: No previous studies available for comparison. INDICATIONS : Dizziness. MEDICAL HISTORY : Hypertension. SURGICAL HISTORY : Hysterectomy. section. ENCOUNTER: Subsequent ACUITY: 2 day PAIN SCORE: 0/10 LOCATION: cranial Please note a normal MRA of the brain does not entirely exclude the possibility of a small aneurysm, nor the possibility of distal intracranial vessel disease. TECHNIQUE: 3D time of flight MRA was performed. Source images, multiplanar STS MIP, and 3D volume MIP reconstru ctions were reviewed. FINDINGS: There is excellent visualization of the major intracranial arteries out to the second-order branch ve ssels. There is a 4 mm aneurysm seen at the anterior superior left supraclinoid portion of the inter nal carotid artery. The distal cerebral flow appears symmetric and normal. CONCLUSION: 4 mm aneurysm in the left supraclinoid portion of the internal carotid artery. Geoffrey Mckeon MD on November 22, 2016 at 12:53 Board Certified Radiologist. This report was verified electronically.
--- NOTE | 2016-11-22 14:14 | PD.CONS ---
[facility] Service Neurosurgery Consult Requested By Medicine Reason for Consult ICA aneurysm Primary Care Physician [facility] provider, Dr Kathleen Buck History of Present Illness 56 yr old was admitted with dizziness. She is alert and intact. She has paroxysmal afib and HTN which are treated. Her dizziness is worse with moving her neck. She was referred as an outpatient for vestibular rehab but has not yet completed the therapy. She has no family hx of aneurysm. She quit smoking last year and gained some weight. She denies headaches or focal deficits but has paresthesias in the hands and cramping in the legs. Review of Systems Constitutional: COMPLAINS OF: Weight gain, Dizziness Endocrine: DENIES: Abnorml menstrual pattern, Heat/cold intolerance, Polydipsia , Polyuria, Polyphagia Eyes: DENIES: Blurred vision, Diplopia, Eye inflammation, Eye pain, Vision loss , Photosensitivity, Double Vision Ears, nose, mouth, throat: DENIES: Tinnitus, Hearing loss, Vertigo, Nasal discharge, Oral lesions, Throat pain, Hoarseness, Ear Pain, Running Nose, Epistaxis, Sinus Pain, Toothache, Odynophagia Respiratory: DENIES: Apneas, Cough, Snoring, Wheezing, Hemoptysis, Sputum production, Shortness of breath Cardiovascular: DENIES: Chest pain, Palpitations, Syncope, Dyspnea on Exertion , PND, Lower Extremity Edema, Orthopnea, Claudication Genitourinary: DENIES: Abnormal vaginal bleeding, Dysmenorrhea, Dyspareunia, Sexual dysfunction, Urinary frequency, Urinary incontinence, Urgency, Hematuria , Dysuria, Nocturia, Vaginal discharge Musculoskeletal: COMPLAINS OF: Back pain Integumentary: DENIES: Abnormal pigmentation, Pruritus, Rash, Nail changes, Breast masses, Breast skin changes, Nipple discharge Hematologic/lymphatic: DENIES: Bruising, Lymphadenopathy Immunologic/allergic: DENIES: Eczema, Urticaria Neurologic: COMPLAINS OF: Paresthesias, DENIES: Abnormal gait, Headache, Localized weakness, Seizures, Speech Problems, Tremor, Poor Balance Psychiatric: DENIES: Anxiety, Confusion, Mood changes, Depression, Hallucinations, Agitation, Suicidal Ideation, Homicidal Ideation, Delusions Past Family Social History Allergies: Coded Allergies: No Known Allergies (Verified , 08/13/13) Past Medical History HTN Afib Lumbar stenosis Past Surgical History Partial hysterectomy Tubal ligation Reported Medications Reported Meds & Active Scripts Active Reported Hydrochlorothiazide 25 Mg Tab 25 Mg PO DAILY Valium (Diazepam) 10 Mg Tab 10 Mg PO ONCE PRN Temazepam 15 Mg Cap 15 Mg PO HS PRN Vitamin D3 (Cholecalciferol) 1,000 Unit Tab 1,000 Units PO DAILY Gabapentin 300 Mg Cap 300 Mg PO HS Tramadol (Tramadol HCl) 50 Mg Tab 50 Mg PO QID PRN Pantoprazole (Pantoprazole Sodium) 40 Mg Tab 40 Mg PO DAILY PRN Flexeril (Cyclobenzaprine HCl) 10 Mg Tab 10 Mg PO HS Buspirone (Buspirone HCl) 15 Mg Tab 15 Mg PO BID PRN Nitroglycerin SL (Nitroglycerin) 0.4 Mg Subl 0.4 Mg SL DIRECTED PRN ONE TABLET UNDER THE TONGUE NEEDED FOR CHEST PAIN, MAY REPEAT EVERY FIVE MINUTES FOR A TOTAL OF 3 DOSES OR CALL 911 IF NO RELIEF Metoprolol Tartrate 50 Mg Tab 50 Mg PO BID Lortab (Hydrocodone-Acetaminophen) 5-325 Mg Tab 1 Tab PO Q6H PRN Aspirin 325 Mg Tab 325 Mg PO DAILY Family History Htn, DM on her mother's side Social History Single, quit tob, 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 [employer] Physical Exam Vital Signs Vital Signs Date Time Temp Pulse Resp B/P Pulse Ox O2 Delivery O2 Flow Rate FiO2 11/22/16 12:44 96.6 59 18 122/64 96 11/22/16 08:47 18 11/22/16 07:32 96.6 75 18 125/72 97 11/22/16 04:00 96.4 67 18 113/61 96 11/22/16 00:08 97.9 73 18 107/60 97 11/21/16 23:00 78 11/21/16 20:18 97.2 69 18 139/92 97 11/21/16 19:17 64 18 152/86 99 Room Air 11/21/16 18:27 66 18 165/88 100 Room Air 11/21/16 17:30 89 16 122/77 98 Room Air 11/21/16 15:44 70 16 158/95 99 Room Air 11/21/16 15:44 99 Room Air Physical Exam Alert lady well nourished and oriented x 3, speech fluent, attention is good, Motor 5/5 in the delt/bic/tri/HF/gastroc/ant tib Paresthesias in the hands and feet, no sensory loss in all extremities Neck stiff and decreased ROM Skin warm and dry, Reflexes are decreased in the right bic/0/4, 1/4 in the left bi, 2/4 in the patella, no Etienne sign, no Babinski Laboratory Laboratory Tests Test 11/21/16 11/22/16 14:38 07:28 White Blood Count 7.5 Red Blood Count 4.40 Hemoglobin 13.8 Hematocrit 40.0 Mean Corpuscular Volume 90.8 Mean Corpuscular Hemoglobin 31.3 Mean Corpuscular Hemoglobin 34.5 Concent Red Cell Distribution Width 13.5 Platelet Count 196 Mean Platelet Volume 10.2 Neutrophils (%) (Auto) 58.5 Lymphocytes (%) (Auto) 25.5 Monocytes (%) (Auto) 14.4 Eosinophils (%) (Auto) 1.2 Basophils (%) (Auto) 0.4 Neutrophils # (Auto) 4.4 Lymphocytes # (Auto) 1.9 Monocytes # (Auto) 1.1 Eosinophils # (Auto) 0.1 Basophils # (Auto) 0.0 CBC Comment DIFF FINAL Differential Comment Prothrombin Time 11.8 Prothromb Time International 1.1 Ratio Activated Partial 27.7 Thromboplast Time Sodium Level 140 Potassium Level 3.6 Chloride Level 102 Carbon Dioxide Level 25.6 Anion Gap 12 Blood Urea Nitrogen 17 Creatinine 0.86 Estimat Glomerular Filtration 83 Rate Random Glucose 106 Calcium Level 8.9 Magnesium Level 1.5 Total Bilirubin 0.5 Aspartate Amino Transf 31 (AST/SGOT) Alanine Aminotransferase 52 (ALT/SGPT) Alkaline Phosphatase 82 Total Creatine Kinase 316 Creatine Kinase MB 1.0 Creatine Kinase MB % 0.3 Troponin I LESS THAN 0.02 LESS THAN 0.02 Total Protein 7.6 Albumin 3.7 Result Diagram: 11/21/16 1438 11/21/16 1438 Imaging Last Impressions Head Magnetic Resonance Angiography 11/22/16 0000 Signed Impressions: Service Date/Time: Tuesday, November 22, 2016 11:49 - CONCLUSION: 4 mm aneurysm in the left supraclinoid portion of the internal carotid artery. Geoffrey Mckeon MD Chest X-Ray 11/21/16 1426 Signed Impressions: Service Date/Time: Monday, November 21, 2016 14:54 - CONCLUSION: No acute disease. Geoffrey Mckeon MD Carotid Artery Ultrasound 11/21/16 0000 Signed Impressions: Service Date/Time: Monday, November 21, 2016 21:34 - CONCLUSION: 1. Mild soft plaquing at the left carotid bifurcation. 2. No focal high-grade or hemodynamically significant stenosis. Carmelo Bailey MD Brain MRI 11/21/16 0000 Signed Impressions: Service Date/Time: Monday, November 21, 2016 16:59 - CONCLUSION: 2 small approximate 4 mm foci of increased signal seen at the superior medial right parietal lobe which may represent some minimal areas of infarction. Geoffrey Mckeon MD Assessment and Plan Diagnosis: (1) Cerebral aneurysm without rupture Plan: She has no specific symptoms from this 4mm aneurysm and no family hx so her risk of bleeding is about 1%-3% per year. Her greatest risk factor is the prior smoking hx. The aneurysm is above the anterior clinoid and points medially but has a small lobe that points laterally. Because the dome is irregular elective treatment should be considered. Elective referral to [facility] is recommended as an outpatient. ICD Code: I67.1 Reji Mckinley Nov 22, 2016 14:14
--- NOTE | 2016-11-22 14:34 | EC ---
Study Study Date:11/22/2016 STUDY CONCLUSIONS SUMMARY LEFT VENTRICLE: The cavity size was normal. Wall thickness was increased in a pattern of mild LVH. Systolic function was normal. The estimated ejection fraction was in the range of 55% to 60%. Wall motion was normal; there were no regional wall motion abnormalities. If LV function is below 40, please consider prescribing an ACEI or ARB or document rationale for non-use. PROCEDURE DATA STUDY STATUS: Elective. Procedure: Transthoracic echocardiography. Image quality was good. Scanning was performed from the parasternal, apical, and subcostal acoustic windows. Study completion: The patient tolerated the procedure well. Transthoracic echocardiography. M-mode, complete 2D, complete spectral Doppler, and color Doppler. Patient status: Inpatient. CARDIAC ANATOMY LEFT VENTRICLE: The cavity size was normal. Wall thickness was increased in a pattern of mild LVH. Systolic function was normal. The estimated ejection fraction was in the range of 55% to 60%. Wall motion was normal; there were no regional wall motion abnormalities. AORTIC VALVE: Trileaflet; normal thickness leaflets. Doppler: Transvalvular velocity was within the normal range. There was no stenosis. No regurgitation. AORTA: Aortic root: The aortic root was normal in size. MITRAL VALVE: Structurally normal valve. Doppler: Transvalvular velocity was within the normal range. There was no evidence for stenosis. No regurgitation. LEFT ATRIUM: The atrium was normal in size. RIGHT VENTRICLE: The cavity size was normal. Wall thickness was normal. PULMONIC VALVE: Doppler: Transvalvular velocity was within the normal range. There was no evidence for stenosis. No regurgitation. TRICUSPID VALVE: Structurally normal valve. Doppler: Transvalvular velocity was within the normal range. Trace to mild regurgitation. PULMONARY ARTERY: The main pulmonary artery was normal-sized. Systolic pressure was within the normal range. RIGHT ATRIUM: The atrium was normal in size. PERICARDIUM: There was no pericardial effusion. SYSTEMIC VEINS: Inferior vena cava: The vessel was normal in size. BASIC MEASUREMENTS ADULT Normal Left ventricle LV internal dimension, ED, chordal level, 45.4 mm 43-52 PLAX LV internal dimension, ES, chordal level, 31.7 mm 23-38 PLAX Fractional shortening, chordal level, PLAX 30 % >29 LV posterior wall thickness, ED 6.47 mm IVS/LVPW ratio, ED *2.15 <1.3 Ventricular septum Septal thickness, ED 13.9 mm Aortic valve Leaflet separation 18 mm 15-26 Left atrium Anterior-posterior dimension 36 mm Right ventricle RV internal dimension, ED, PLAX *18.8 mm 19-38 BASIC MEASUREMENTS ADULT Normal Aortic valve Leaflet separation 18 mm 15-26 Aorta Root diameter, ED 27 mm 20-37 DOPPLER MEASUREMENTS ADULT Normal Mitral valve Peak E-wave velocity 51.8 cm/s Peak A-wave velocity 74.5 cm/s Peak E/A ratio 0.7 Tricuspid valve Regurgitant peak velocity 262 cm/s Peak RV-RA gradient, S 27 mm Hg Maximal regurgitant velocity 262 cm/s LEGEND: Mean values are shown as u=mean value. Asterisk (*) robert values outside specified normal range. Prepared and signed by Denzel Clark [id number]
[2016-11-22 15:50] VITALS: BP 140/78; PULSE 63; RESP 18; TEMP 97.5; O2SAT 98
--- NOTE | 2016-11-22 19:44 | EKG ---
Date Performed: 11/22/2016 Time Performed: 07:02:59 PTAGE: 56 years EKG: Sinus rhythm NORMAL ECG PREVIOUS TRACING : 11/21/2016 14.18 Compared to prior tracing no significant change DOCTOR: Bud Taylor Interpretating Date/Time 11/22/2016 19:42:38
--- NOTE | 2016-11-22 20:19 | EKG ---
Date Performed: 11/21/2016 Time Performed: 14:18:21 PTAGE: 56 years EKG: Sinus rhythm MINIMAL VOLTAGE CRITERIA FOR LVH, CONSIDER NORMAL VARIANT BORDERLINE ECG Compared to prior tracing n o significant change DOCTOR: Bud Taylor Interpretating Date/Time 11/22/2016 20:17:50
[2016-11-22 20:48] VITALS: BP 125/71; PULSE 71; RESP 20; TEMP 98.2; O2SAT 99
[2016-11-22] MEDS ORDERED: CYCLOBENZAPRINE HCL 10 MG TAB PO SCH (21:00)
[2016-11-22] MEDS ORDERED: GABAPENTIN 300 MG CAP PO SCH (21:00)
[2016-11-22] MEDS: TEMAZEPAM 15 MG CAP PO PRN (21:06)
[2016-11-23] VITALS: BP 105/72; PULSE 66; RESP 20; TEMP 98.7; O2SAT 94
[2016-11-23 04:00] VITALS: BP 101/59; PULSE 70; RESP 18; TEMP 96.1; O2SAT 93
--- NOTE | 2016-11-23 06:34 | HHI.PR ---
Review/Management Diagnosis/Plan: (1) Cerebral aneurysm without rupture Plan: She has no specific symptoms from this 4mm aneurysm and no family hx so her risk of bleeding is about 1%-3% per year. Her greatest risk factor is the prior smoking hx. The aneurysm is above the anterior clinoid and points medially but has a small lobe that points laterally. Because the dome is irregular elective treatment should be considered. Elective referral to [facility] is recommended as an outpatient. Daily Summary small cerebral aneurysm discovered, see mra, seen by our NS, note reviewed with this finding i would wait till seen by [facility] neurosurgery before starting anticoagulation continue asa please call prn Subjective Subjective Comments No acute events reported No headache No chest pain No dyspnea Active Medications Current Medications Medications (Trade) Dose Ordered Sig/Gemini Route Start Time Stop Time Status Last Admin (Ecotrin Ec) 325 mg DAILY PO 11/22/16 09:00 11/22/16 07:47 ([place] 5-325 Mg) 1 tab Q6H PRN PO 11/21/16 18:30 11/22/16 21:06 (Lopressor) 50 mg BID PO 11/21/16 21:00 11/22/16 21:06 (Nitrostat Sl) 0.4 mg UNSCH PRN SL 11/21/16 18:30 (Vasotec Inj) 1.25 mg Q6H PRN IV PUSH 11/21/16 19:00 (NS Flush) 2 ml UNSCH PRN FLUSH 11/21/16 19:00 (NS Flush) 2 ml BID FLUSH 11/21/16 21:00 11/22/16 21:06 (Dulcolax Supp) 10 mg DAILY PRN [place] 11/21/16 19:00 (Narcan Inj) 0.4 mg UNSCH PRN IV 11/21/16 19:00 (Restoril) 15 mg HS PRN PO 11/21/16 20:45 11/22/16 21:06 (Protonix) 40 mg DAILY PO 11/22/16 09:00 11/22/16 07:47 (Buspar) 15 mg BID PRN PO 11/22/16 12:15 (Flexeril) 10 mg HS PO 11/22/16 21:00 11/22/16 21:06 (Neurontin) 300 mg HS PO 11/22/16 21:00 11/22/16 21:06 (Ultram) 50 mg QID PRN PO 11/22/16 12:15 Allergies Allergies Coded Allergies No Known Allergies (Rxoinzxu80/4/13) Exam I&O / VS 11/22/16 11/22/16 11/23/16 15:00 23:00 07:00 Intake Total 480 ml Balance 480 ml Intake Oral 480 ml # Voids 4 # Bowel Movements 0 Vital Signs Date Time Temp Pulse Resp B/P Pulse Ox O2 Delivery O2 Flow Rate FiO2 11/23/16 04:00 96.1 70 18 101/59 93 11/23/16 00:00 98.7 66 20 105/72 94 11/22/16 20:48 98.2 71 20 125/71 99 11/22/16 15:50 97.5 63 18 140/78 98 11/22/16 12:44 96.6 59 18 122/64 96 11/22/16 08:47 18 11/22/16 07:32 96.6 75 18 125/72 97 Objective Radiology Results Last 48 hours Impressions Head Magnetic Resonance Angiography 11/22/16 0000 Signed Impressions: Service Date/Time: Tuesday, November 22, 2016 11:49 - CONCLUSION: 4 mm aneurysm in the left supraclinoid portion of the internal carotid artery. Geoffrey Mckeon MD Chest X-Ray 11/21/16 1426 Signed Impressions: Service Date/Time: Monday, November 21, 2016 14:54 - CONCLUSION: No acute disease. Geoffrey Mckeon MD Micro and Labs Laboratory Tests Test 11/22/16 07:28 Troponin I LESS THAN 0.02 Miriam Melara MD Nov 23, 2016 06:34
[2016-11-23] MEDS: ASPIRIN EC 325 MG TABEC PO SCH (09:10)
[2016-11-23] MEDS: METOPROLOL TARTRATE 50 MG TAB PO SCH (09:10)
[2016-11-23] MEDS: PANTOPRAZOLE SOD 40 MG DELAYED RELEASE TAB PO SCH (09:10)
[2016-11-23] MEDS: SODIUM CHLORIDE 0.9% FLUSH 5 ML FLUSH FLUSH SCH (09:14)
[2016-11-23 09:35] VITALS: BP 129/87; PULSE 77; RESP 19; TEMP 99.2; O2SAT 94
--- NOTE | 2016-11-23 11:47 | HHI.DCPOC ---
Discharge Care Plan Diagnosis: (1) Dizziness (2) Cerebral aneurysm without rupture (3) Paroxysmal atrial fibrillation (4) Hypertension (5) Chest pain Goals to Promote Your Health * To prevent worsening of your condition and complications - Pt will need to keep a BP log at home. - We will hold her HCTZ at discharge but this may need to be resumed once the pt is ambulating and eating normally her BP will likely go up. - Pt will need to followup with her PCP, Dr. Kathleen Buck, in 1 week for followup from this admission and for referral to tertiary center ([facility] or [place]) for further evaluation of the cerebral aneurysm. - Pt will need to followup with Neurology in 2 week, call for an appt. Directions to Meet Your Goals Take your medications as prescribed Follow your dietary instruction Follow activity as directed Keep your appointments as scheduled Take your immunizations and boosters as scheduled If your symptoms worsen call your PCP, if no PCP go to Urgent Care Center or Emergency Room Smoking is Dangerous to Your Health. Avoid second hand smoke Call the 24-hour hour crisis hotline for domestic abuse at Kareen Tam Nov 23, 2016 11:47 Omar Ernst DO Nov 23, 2016 16:02
[2016-11-23 12:23] VITALS: BP 113/70; PULSE 65; RESP 18; TEMP 97.2; O2SAT 94
[2016-11-23] MEDS: ACETAMINOPHEN/HYDROcodone 325 MG/5 MG TAB PO PRN (12:44)
[2016-11-23 13:15] VITALS: BP_SYST 113; BP_SYST 119; BP_SYST 142; BP_DIAS 70; BP_DIAS 71; BP_DIAS 81
--- NOTE | 2016-11-23 14:03 | HHI.PR ---
Subjective Remarks Pt reports that she is still having dizziness while lying in bed and this is worse when standing up to ambulate. Pt was seen by PT yesterday and she walked 200ft but was recommended HHC/PT She states that today she has some numbness and tingling in her left hand which she did not have prior to admission. Objective Vitals Vital Signs Date Time Temp Pulse Resp B/P Pulse Ox O2 Delivery O2 Flow Rate FiO2 11/23/16 13:15 113/70 119/71 142/81 11/23/16 12:23 97.2 65 18 113/70 94 11/23/16 10:14 18 11/23/16 09:35 99.2 77 19 129/87 94 11/23/16 04:00 96.1 70 18 101/59 93 11/23/16 00:00 98.7 66 20 105/72 94 11/22/16 20:48 98.2 71 20 125/71 99 11/22/16 15:50 97.5 63 18 140/78 98 11/22/16 11/22/16 11/23/16 15:00 23:00 07:00 Intake Total 480 ml Balance 480 ml Intake Oral 480 ml # Voids 4 # Bowel Movements 0 Result Diagram: 11/21/16 1438 11/21/16 1438 Other Results Laboratory Tests Test 11/21/16 11/22/16 14:38 07:28 White Blood Count 7.5 TH/MM3 Red Blood Count 4.40 MIL/MM3 Hemoglobin 13.8 GM/DL Hematocrit 40.0 % Mean Corpuscular Volume 90.8 FL Mean Corpuscular Hemoglobin 31.3 PG Mean Corpuscular Hemoglobin 34.5 % Concent Red Cell Distribution Width 13.5 % Platelet Count 196 TH/MM3 Mean Platelet Volume 10.2 FL Neutrophils (%) (Auto) 58.5 % Lymphocytes (%) (Auto) 25.5 % Monocytes (%) (Auto) 14.4 % Eosinophils (%) (Auto) 1.2 % Basophils (%) (Auto) 0.4 % Neutrophils # (Auto) 4.4 TH/MM3 Lymphocytes # (Auto) 1.9 TH/MM3 Monocytes # (Auto) 1.1 TH/MM3 Eosinophils # (Auto) 0.1 TH/MM3 Basophils # (Auto) 0.0 TH/MM3 CBC Comment DIFF FINAL Differential Comment Prothrombin Time 11.8 SEC Prothromb Time International 1.1 RATIO Ratio Activated Partial 27.7 SEC Thromboplast Time Sodium Level 140 MEQ/L Potassium Level 3.6 MEQ/L Chloride Level 102 MEQ/L Carbon Dioxide Level 25.6 MEQ/L Anion Gap 12 MEQ/L Blood Urea Nitrogen 17 MG/DL Creatinine 0.86 MG/DL Estimat Glomerular Filtration 83 ML/MIN Rate Random Glucose 106 MG/DL Calcium Level 8.9 MG/DL Magnesium Level 1.5 MG/DL Total Bilirubin 0.5 MG/DL Aspartate Amino Transf 31 U/L (AST/SGOT) Alanine Aminotransferase 52 U/L (ALT/SGPT) Alkaline Phosphatase 82 U/L Total Creatine Kinase 316 U/L Creatine Kinase MB 1.0 NG/ML Creatine Kinase MB % 0.3 % Troponin I LESS THAN 0.02 LESS THAN 0.02 NG/ML NG/ML Total Protein 7.6 GM/DL Albumin 3.7 GM/DL Imaging Last Impressions Head Magnetic Resonance Angiography 11/22/16 0000 Signed Impressions: Service Date/Time: Tuesday, November 22, 2016 11:49 - CONCLUSION: 4 mm aneurysm in the left supraclinoid portion of the internal carotid artery. Geoffrey Mckeon MD Chest X-Ray 11/21/16 1426 Signed Impressions: Service Date/Time: Monday, November 21, 2016 14:54 - CONCLUSION: No acute disease. Geoffrey Mckeon MD Carotid Artery Ultrasound 11/21/16 0000 Signed Impressions: Service Date/Time: Monday, November 21, 2016 21:34 - CONCLUSION: 1. Mild soft plaquing at the left carotid bifurcation. 2. No focal high-grade or hemodynamically significant stenosis. Carmelo Bailey MD Brain MRI 11/21/16 0000 Signed Impressions: Service Date/Time: Monday, November 21, 2016 16:59 - CONCLUSION: 2 small approximate 4 mm foci of increased signal seen at the superior medial right parietal lobe which may represent some minimal areas of infarction. Geoffrey Mckeon MD Objective Remarks General: NAD, AAOx3 Chest: CTA Cardiac: Regular Abd: +BS, soft ND/NT Ext: No edema Procedures 2D echo (11/23/16) - Mild LVH - Estimated EF 55-60% A/P Problem List: (1) Dizziness Status: Acute Plan: - Pt presented to the ED with dizziness and elevated blood pressure. - Pt with a hx of paroxysmal atrial fibrillation - She reports that she has had intermittent dizziness for a few months. - MRI Brain (11/21) --> 2 small approximate 4 mm foci of increased signal seen at the superior medial right parietal lobe which may represent some minimal areas of infarction. - Carotid US (11/21) --> Mild soft plaquing at the left carotid bifurcation. No focal high-grade or hemodynamically significant stenosis. - Cardiology has evaluated and no evidence on telemetry of atrial fibrillation but given pts hx of paroxysmal a. fib and findings of possible stroke on MRI they have recommended anticoagulation if cleared by Neuro. - MRA of the brain (11/22) --> 4 mm aneurysm in the left supraclinoid portion of the internal carotid artery. - Neurosurgery was consulted and because the dome of the aneurysm is irregular they felt that elective treatment should be considered. Elective referral to tertiary is recommended as an outpatient. - Neurology has evaluated and agree with prison anticoagulation after the pt is evaluated at tertiary center regarding the aneurysm. - Pt will cont. on ASA 325mg po daily - 2D echo noted mild LVH and EF 55-60% - Pt is still having dizziness which seems to be all the time but worse when standing up to ambulate. She was able to ambulate with PT 200ft yesterday - Telemetry is unrevealing. - Pt does NOT appear to be vertiginous. - NO noted cerumen impaction on initial examination by the admitting physician. - NO orthostatic hypotension noted - Could be related to BP issues, hypertensive encephalopathy, pt states that she has had symptoms of dizziness and headache when her BP is elevated although her BP has been relatively stable over the last day but pt is still symptomatic. She was noted to have an elevation in her BP upon standing to check orthostatic vital signs. She recently had HCTZ added to her regimen due to elevated BP. - Today pt with some left hand paresthesia which is new. NO decreased hearing healthcare practitioner strength or weakness in the UE or LE. Neuro exam is stable otherwise. - Check MRI Cervical spine prior to discharge. - Check B12 ,folate level, TSH/Free T4, RPR, Ammonia which can be followed up on as an outpt - Anticipate discharge later this evening. - Pt will need to keep a BP log at home. - We will hold her HCTZ at discharge but this may need to be resumed once the pt is ambulating and eating normally her BP will likely go up. - Pt will need to followup with her PCP, Dr. Kathleen Buck, in 1 week for followup from this admission and for referral to tertiary center ([facility] or [place]) for further evaluation of the cerebral aneurysm. - Pt will need to followup with Neurology in 2 week (2) Hypertension Status: Chronic Plan: - BP is stable on Metoprolol - Pt had been started on HCTZ 25mg po daily as an outpt about a week or so prior to admission, this is on hold for now. - BP has been relatively stable. (3) Paroxysmal atrial fibrillation Status: Chronic Plan: - Pt has remained in NSR - Continue metoprolol (4) Chest pain Status: Acute Plan: - Atypical chest pain, seems to be non cardiac - CE are negative. - Cardiology has evaluated and no need for further evaluation from a cardiac standpoint at this time. Assessment and Plan Patient examined. Assessment and plan formulated with Kareen Tam PA-C. I agree with the above. Problem Qualifiers (1) Hypertension: Qualified Code: I10 - Essential hypertension Kareen Tam Nov 23, 2016 14:03 Omar Ernst DO Nov 23, 2016 16:02
--- NOTE | 2016-11-23 14:15 | HHI.FF ---
Face to Face Verification Diagnosis: (1) Dizziness (2) Hypertension (3) Paroxysmal atrial fibrillation (4) Cerebral aneurysm without rupture (5) Chest pain Physical Therapy Order: Evaluate and Treat, Improve ambulation, Strength and gait training Home Health Nursing Order: Nursing assessment with vital signs I have seen patient Lisa Solomon on 11/23/16. My clinical findings support the need for the requested home health care services because: Deconditioned w/ increased weakness I certify that my clinical findings support that this patient is homebound because: Unsteady gait/balance Kareen Tam Nov 23, 2016 14:15 Omar Ernst DO Nov 23, 2016 16:02
[2016-11-23 14:20] VITALS: RESP 18
--- NOTE | 2016-11-23 15:24 | RADRPT ---
EXAM DATE/TIME: 11/23/2016 14:45 [facility] COMPARISON: No previous studies available for comparison. INDICATIONS : Radiculopathy. MEDICAL HISTORY : Hypertension. SURGICAL HISTORY : section. Hysterectomy. Tubal ligation. ENCOUNTER: Initial ACUITY: 1 day PAIN SCORE: 0/10 LOCATION: Neck. TECHNIQUE: Multiplanar, multisequence MRI examination of the cervical spine was performed. FINDINGS: Alignment: Cranial cervical and cervical vertebral body alignment are intact. There is no evidence of listhesis. There is slight straightening and reversal of normal lordosis. Osseous structures and facet joints: Vertebral bodies are intact. There is no evidence of compression fracture, bone marrow edema or destr uctive changes. Facet joints are unremarkable. Intervertebral disc spaces: Mild degenerative disease is noted. C2-3, C3-4 and C7-T1: Unremarkable. C4-5: Very small central protrusion without significant mass effect. C5-6: Small central and left paracentral disc protrusion abutting but not effacing the spinal cord. C6-7: Mild degenerative disc disease with mild broad-based bulge. There is no significant mass effect . Neurologic structures: Spinal cord is normal in caliber and signal intensity. There is no significant spinal stenosis or com pression. There is no evidence of neural foraminal encroachment. CONCLUSION: Degenerative disc disease with small disc protrusions at C4-5 and C5-6. There is no e vidence of cord compression or neural foraminal encroachment. No evidence of significant mass effect, cord compression or acute bony abnormality. Manas Cooper MD on November 23, 2016 at 15:17 Board Certified Radiologist. This report was verified electronically.
[2016-11-23 16:38] LABS: FREE T4 0.92 NG/DL (0.76-1.46)
[2016-11-24 10:30] LABS: RAPID PLASMA REAGIN SCREEN NON-REACTIVE (NON-REACTVE)
== END 2016-11-23 15:55 | disposition home health service (06) ==
LOC: NEPC 14:00 → INTOOBSV 18:10 → NEDA 18:10 → N05B 20:11 → UNDODISIN 11-23 15:55
PROVIDERS: ADMIT Hospitalist; ATTEND Hospitalist
DX: I63.9 Cerebral infarction, unspecified (principal); I48.0 Paroxysmal atrial fibrillation; I10 Essential (primary) hypertension; K21.9 Gastro-esophageal reflux disease without esophagitis; E78.5 Hyperlipidemia, unspecified; M48.06 Spinal stenosis, lumbar region; Z87.891 Personal history of nicotine dependence; Z79.82 Long term (current) use of aspirin
CPT/HCPCS: 70544; 70551; 71010; 72141; 80053; 82140; 82550; 82552; 82607; 82746; 83735; 84439; 84443; 84484; 85025; 85610; 85730; 86592; 93005; 93306; 93880; 97162; 99285; G0378; J1650

== ENCOUNTER 2016-12-26 23:36 | Emergency (ER) | payer OTHER ==
[~2016-12-26] VITALS: Ht 175.3 cm; Wt 105.0 kg
[~2016-12-26 23:36] MED LIST changes: +ASPI325T PO; -BAYE325T3 PO; +BUSP15TA PO; +CYCL1TAB29 PO; +DIAZ10 PO; -GABA100C2 PO; +GABA300C5 PO; +HYDR-3533 PO; -HYDR-3534 PO; -LORTA5 PO; -METO25CR PO; -NITR.4 PO; +NITR1SUB3 SL; +PANT40TA3 PO; +TEMA15CA PO; +TRAM50TA PO; +VITA100018 PO
[2016-12-26 23:38] VITALS: BP 206/102; PULSE 76; RESP 18; TEMP 98.6; O2SAT 99
[2016-12-26 23:54] VITALS: BP_SYST 147; BP_SYST 177; BP_DIAS 79; BP_DIAS 89; PULSE 76; RESP 20; O2SAT 99
[2016-12-26] MEDS ORDERED: CLON0.1T PO ×2 (23:57)
[2016-12-26] MEDS ORDERED: HYDR25TA5 PO (23:58)
[2016-12-27] MEDS ORDERED: LABETALOL HCL 100 MG/20 ML VIAL IV PUSH ONE (00:30)
--- NOTE | 2016-12-27 00:31 | PD ---
HPI Chief Complaint: Hypertension Time Seen by Provider: 23:55 Travel History International Travel<30 days: No Contact w/Intl Traveler<30days: No Traveled to known affect area: No History of Present Illness HPI The patient is a 56 year old female who presents to the [facility] emergency department with a history of ischemic stroke involving the cerebellum with resultant vertiginous symptoms that was first diagnosed on November 21, 2016. The patient has a long-standing history of hypertension and paroxysmal atrial fibrillation. The patient was admitted to the hospital for evaluation of her ischemic stroke. During the workup the patient was noted to have a carotid artery aneurysm. A neurosurgical consultation was placed and they recommended elective follow-up with [facility] neurosurgery department. The patient reports that she followed up with the neurologist after the stroke. She reports that she is in the process of being referred based on her insurance the [facility] for evaluation of aneurysm and treatment. The patient reports that she has been on metoprolol and hydrochlorothiazide for her blood pressure control, however her blood pressure had continued be elevated and she also had problems with insomnia, therefore her primary care physician added clonidine 0.1 mg at night to help with both. The patient reports that today her blood pressure continued to be elevated, therefore she decided to come to the emergency department. She reports that she gets a bitemporal headache when her blood pressure is up as well as shortness of breath when her blood pressure is elevated. She reports that at 8:30 she did take 2.1 mg of clonidine. She denies having any dizziness currently. She denies having any one-sided weakness , facial droop, difficulty with word finding ability, vision changes, or numbness or tingling to her extremities. The patient denies any recent fevers, cough, congestion, neck pain, chest pain, abdominal pain, vomiting, diarrhea, or urinary symptoms. [facility] Past Medical History Narrative Medical The patient's past medical history is significant for paroxysmal atrial fibrillation, hyperlipidemia, hypertension, acid reflux, history of headaches, history of an ischemic stroke involving the cerebellum, history of chronic low back pain treated by pain management. Arthritis: No Asthma: No Atrial Fibrillation: Yes Autoimmune Disease: No Anxiety: No Depression: Yes (PATIENT STATES SOMETIMES) Heart Rhythm Problems: Yes (PATIENT STATES SHE HAS HAD AN ISSUE WITH AFIB FOR 8 MONTHS) Cancer: No Cardiovascular Problems: Yes (HTN, A-FIB) High Cholesterol: Yes Chemotherapy: No Chest Pain: No Congestive Heart Failure: No COPD: No Cerebrovascular Accident: No Diabetes: No Diminished Hearing: No Endocrine: No Gastrointestinal Disorders: Yes GERD: Yes Genitourinary: Yes (PATIENT WAS HOSPITALIZED IN 1985 FOR A KIDNEY ISSUE, DOES NOT REMEMBER WHAT) Headaches: Yes Hiatal Hernia: No Hypertension: Yes Immune Disorder: No Kidney Stones: No Musculoskeletal: Yes Neurologic: Yes Psychiatric: Yes Reproductive: No Respiratory: No Migraines: No Radiation Therapy: No Renal Failure: No Seizures: No Sickle Cell Disease: No Sleep Apnea: No Thyroid Disease: No Ulcer: No ?: Not : 6 Para: 4 Miscarriage: 1 : 1 Tubal Ligation: Yes Past Surgical History Narrative Surgical The patient's past surgical history is significant for partial hysterectomy. Abdominal Surgery: No Cardiac Surgery: No Section: Yes Ear Surgery: No Endocrine Surgery: No Eye Surgery: No Genitourinary Surgery: No Gynecologic Surgery: Yes (, PARTIAL HYSTERECTOMY) Hysterectomy: Yes (PARTIAL) Oral Surgery: No Thoracic Surgery: No Other Surgery: Yes Social History Alcohol Use: No Tobacco Use: No (10/2015 QUIT) Substance Use: Yes (MARIJUANA (DENIES)) Allergies-Medications (Allergen,Severity, Reaction): Coded Allergies: No Known Allergies (Verified , 12/26/16) Reported Meds & Prescriptions Reported Meds & Active Scripts Active Reported Hydrochlorothiazide 25 Mg Tab 25 Mg PO DAILY Clonidine (Clonidine HCl) 0.1 Mg Tab 0.1 Mg PO HS Vitamin D3 (Cholecalciferol) 1,000 Unit Tab 1,000 Units PO DAILY Gabapentin 300 Mg Cap 300 Mg PO HS Tramadol (Tramadol HCl) 50 Mg Tab 50 Mg PO QID PRN Pantoprazole (Pantoprazole Sodium) 40 Mg Tab 40 Mg PO DAILY PRN Flexeril (Cyclobenzaprine HCl) 10 Mg Tab 10 Mg PO HS Buspirone (Buspirone HCl) 15 Mg Tab 15 Mg PO BID PRN Nitroglycerin SL (Nitroglycerin) 0.4 Mg Subl 0.4 Mg SL DIRECTED PRN ONE TABLET UNDER THE TONGUE NEEDED FOR CHEST PAIN, MAY REPEAT EVERY FIVE MINUTES FOR A TOTAL OF 3 DOSES OR CALL 911 IF NO RELIEF Metoprolol Tartrate 50 Mg Tab 50 Mg PO BID Aspirin 325 Mg Tab 325 Mg PO DAILY Review of Systems Except as stated in HPI: all other systems reviewed are Neg General / Constitutional: No: Fever Eyes: No: Visual changes HENT: Positive: Headaches, No: Rhinorrhea, Congestion, Neck Stiffness, Neck Pain Cardiovascular: Positive: Dyspnea on exertion, No: Chest Pain or Discomfort Respiratory: Positive: Shortness of Breath, No: Cough Gastrointestinal: No: Nausea, Vomiting, Diarrhea, Abdominal Pain, Changes in Bowel Habits, Loss of Appetite Genitourinary: No: Dysuria Musculoskeletal: No: Pain Skin: No Rash Neurologic: Positive: Headache, No: Weakness, Focal Abnormalities, Change in Mentation, Slurred Speech, Sensory Disturbance Psychiatric: No: Depression Endocrine: No: Polydipsia Hematologic/Lymphatic: No: Easy Bruising Physical Exam Narrative General: The patient is a well-developed well-nourished female in no acute distress. Head and Neck exam: Head is normocephalic atraumatic. Eyes: EOMI, pupils are equal round and reactive to light. Nose: Midline septum with pink mucous membranes Mouth: Dentition unremarkable. Moist mucus membranes. Posterior oropharynx is not erythematous. No tonsillar hypertrophy. Uvula midline. Airway patent. Neck: No palpable lymphadenopathy. No nuchal rigidity. No thyromegaly. Cardiovascular: Regular rate and rhythm without murmurs, gallops, or rubs. No pulse deficit to the extremities. Lungs: Clear to auscultation bilaterally. No wheezes, rhonchi, or rales. Abdomen: Soft, without tenderness to palpation in all 4 quadrants of the abdomen. No guarding, rebound, or rigidity. Normal bowel sounds are audible. No tenderness on palpation of McBurney's point. Extremities: No clubbing, cyanosis, or edema. 2+ pulses in all 4 extremities. No calf tenderness on palpation. Back: No spinous process tenderness to palpation. No costovertebral angle tenderness to palpation. Neurologic Exam: Cranial nerves 2-12 were intact on exam. Strength is 5/5 in all 4 extremities. No sensory deficits noted. No dysdiadochokinesis. Good finger to nose and Heel to blakely bilaterally. Skin Exam: No rash noted. Intact skin that is warm and dry. Data Data Last Documented VS Vital Signs Date Time Temp Pulse Resp B/P Pulse Ox O2 Delivery O2 Flow Rate FiO2 12/27/16 02:24 125/77 12/27/16 01:44 84 18 98 Room Air 12/26/16 23:38 98.6 Orders Electrocardiogram (12/27/16 00:19) Complete Blood Count With Diff (12/27/16 00:19) Basic Metabolic Panel (Bmp) (12/27/16 00:19) Creatine Kinase (Cpk) (12/27/16 00:19) Ckmb (Isoenzyme) Profile (12/27/16 00:) Troponin I (12/27/16:) B-Type Natriuretic Peptide (12/27/16:) Prothrombin Time / Inr (Pt) (12/27/16:) Act Partial Throm Time (Ptt) (12/27/16 00:19) Chest, Single Ap (12/27/16 00:) Ct Brain W/O Iv Contrast(Rout) (12/27/16 00:19) Iv Access Insert/Monitor (12/27/16 00:) Ecg Monitoring (12/27/16 00:) Oximetry (12/27/16 00:) Labetalol Inj (Trandate Inj) (12/27/16 00:30) Cta Thor Abd Aorta W Iv C W3d (12/27/16 00:19) CKMB (12/27/16 00:40) CKMB% (12/27/16 00:40) Acetaminophen (Tylenol) (12/27/16 02:30) Iohexol 350 Inj (Omnipaque 350 Inj) (12/27/16 02:28) Labs Laboratory Tests Test 12/27/16 00:40 White Blood Count 11.2 TH/MM3 Red Blood Count 4.41 MIL/MM3 Hemoglobin 13.6 GM/DL Hematocrit 40.4 % Mean Corpuscular Volume 91.6 FL Mean Corpuscular Hemoglobin 30.9 PG Mean Corpuscular Hemoglobin 33.7 % Concent Red Cell Distribution Width 13.5 % Platelet Count 263 TH/MM3 Mean Platelet Volume 9.1 FL Neutrophils (%) (Auto) 66.9 % Lymphocytes (%) (Auto) 21.1 % Monocytes (%) (Auto) 10.7 % Eosinophils (%) (Auto) 0.9 % Basophils (%) (Auto) 0.4 % Neutrophils # (Auto) 7.5 TH/MM3 Lymphocytes # (Auto) 2.4 TH/MM3 Monocytes # (Auto) 1.2 TH/MM3 Eosinophils # (Auto) 0.1 TH/MM3 Basophils # (Auto) 0.0 TH/MM3 CBC Comment DIFF FINAL Differential Comment Prothrombin Time 11.2 SEC Prothromb Time International 1.0 RATIO Ratio Activated Partial 28.3 SEC Thromboplast Time Sodium Level 139 MEQ/L Potassium Level 4.3 MEQ/L Chloride Level 105 MEQ/L Carbon Dioxide Level 26.2 MEQ/L Anion Gap 8 MEQ/L Blood Urea Nitrogen 28 MG/DL Creatinine 0.89 MG/DL Estimat Glomerular Filtration 80 ML/MIN Rate Random Glucose 114 MG/DL Calcium Level 8.8 MG/DL Total Creatine Kinase 157 U/L Creatine Kinase MB 0.7 NG/ML Troponin I LESS THAN 0.02 NG/ML B-Type Natriuretic Peptide 2 PG/ML MDM Medical Decision Making Medical Screen Exam Complete: Yes Emergency Medical Condition: Yes Medical Record Reviewed: Yes Interpretation(s) Last Impressions Head CT 12/27/1618 Signed Impressions: Service Date/Time: Tuesday, December 27, 2016 02:19 - CONCLUSION: Normal examination. Denzel Kilgore MD Chest X-Ray 12/27/1618 Signed Impressions: Service Date/Time: Tuesday, December 27, 2016 00:20 - CONCLUSION: Normal examination. Denzel Kilgore MD Aorta CTA 12/27/1618 Signed Impressions: Service Date/Time: Tuesday, December 27, 2016 02:22 - CONCLUSION: No evidence of aortic dissection or aneurysm. There is atherosclerotic disease with a 70%% stenosis involving the proximal SMA, 5 mm after its origin. Denzel Kilgore MD Differential Diagnosis New-onset congestive heart failure, versus intracranial hemorrhage, versus headache related to poorly controlled high blood pressure, versus acute coronary syndrome Narrative Course During the course of the patients emergency department visit, the patients history, examination, and differential diagnosis were reviewed with the patient. The patient had IV access obtained and blood work sent for analysis. The patient was placed on a bus monitor with oximetry and blood pressure monitoring. Bilateral upper extremity blood pressures were collected and noted to be grossly discordant by approximately 30 mmHg systolically. This is suspicious for aortic dissection, however the patient denies having any chest pain or abdominal pain. The patient was continued on the monitor. The patient was given labetalol 10 mg IV. The patient will have a CT of the aorta to further evaluate for dissection. A CT scan of the brain was ordered. The patient continued to have improvement of her blood pressure down to into the 120s systolic. The patient was given Tylenol for pain. The patients laboratory studies were reviewed and remarkable for a white count of 11.2, hemoglobin 13.6, platelets 263 with 10.7 monocytes, basic metabolic profiles are remarkable for a BUN of 28, glucose 114, CPK 157, troponin I less than 0.02, BNP 2, PT PTT unremarkable. Radiology studies were reviewed and remarkable for a chest x-ray that shows no acute abnormality. CT scan of the brain showed no acute abnormality. CTA of the aorta reveals no evidence of aortic dissection or aneurysm. The patient is instructed regarding the importance of continued to follow-up with the neurosurgeon as previously discussed. She reports that she is in the process of being referred by her neurologist. The patient is resting comfortably and feels better, is alert and in no distress. The patients results and examination findings were discussed with the patient. The repeat examination is unremarkable and benign. The history, exam, diagnostic testing, and current condition do not suggest any significant pathology to warrant further testing, continued ED treatment, admission, or surgical evaluation at this point. The vital signs have been stable. The patient does not have uncontrollable pain, intractable vomiting, or other significant symptoms. The patient's condition is stable and appropriate for discharge. The patient will pursue further outpatient evaluation with a primary care physician or other designated or consulting physician as indicated in the discharge instructions. The patient expressed understanding and was agreeable with this plan. Diagnosis Primary Impression: Hypertension Qualified Code: I10 - Essential hypertension Additional Impression: Cerebral aneurysm without rupture Referrals: Neurosurgeon Primary Care Physician 2 days Patient Instructions: General Instructions, Hypertension (DC) Disposition: DISCHARGE HOME Condition: Stable Tammy Conn MD Dec 27, 2016 00:31
[2016-12-27 00:41] VITALS: O2SAT 99
[2016-12-27 00:42] VITALS: BP 142/79; PULSE 77; RESP 18; O2SAT 99
[2016-12-27 00:53] LABS: AUTOMATED NEUTROPHIL # 7.5 TH/MM3 (1.8-7.7); BASOPHIL % 0.4 % (0.0-2.0); EOSINOPHIL # 0.1 TH/MM3 (0-0.4); EOSINOPHIL % 0.9 % (0.0-4.0); HEMATOCRIT 40.4 % (35.0-46.0); HEMO FLAGS DIFF FINAL; LYMPH % 21.1 % (9.0-44.0); LYMPHOCYTE # 2.4 TH/MM3 (1.0-4.8); MEAN CELL VOLUME 91.6 FL (80.0-100.0); MEAN CORPUSCULAR HEMOGLOBIN 30.9 PG (27.0-34.0); MEAN CORPUSCULAR HGB CONC 33.7 % (32.0-36.0); MONO % 10.7 % (0.0-8.0); NEUT % 66.9 % (16.0-70.0); PLATELET COUNT 263 TH/MM3 (150-450); RED BLOOD COUNT 4.41 MIL/MM3 (4.00-5.30); RED CELL DISTRIBUTION WIDTH 13.5 % (11.6-17.2); WHITE BLOOD COUNT 11.2 TH/MM3 (4.0-11.0)
--- NOTE | 2016-12-27 01:03 | RADRPT ---
EXAM DATE/TIME: 12/27/2016 00:20 [facility] COMPARISON: CHEST SINGLE AP, November 21, 2016, 14:54. INDICATIONS : Shortness of breath. MEDICAL HISTORY : None. SURGICAL HISTORY : None. ENCOUNTER: Initial ACUITY: 1 day PAIN SCORE: 0/10 LOCATION: Bilateral chest FINDINGS: A single view of the chest demonstrates the lungs to be symmetrically aerated without evidence of mas s, infiltrate or effusion. The cardiomediastinal contours are unremarkable. Osseous structures are intact. CONCLUSION: Normal examination. Denzel Kilgore MD on December 27, 2016 at 1:01 Board Certified Radiologist. This report was verified electronically.
[2016-12-27 01:05] LABS: APTT (PATIENT) 28.3 SEC (24.3-30.1); PROTHROMBIN TIME - PATIENT 11.2 SEC (9.8-11.6)
[2016-12-27 01:11] VITALS: BP 125/69; PULSE 74; RESP 18; O2SAT 99
[2016-12-27 01:12] LABS: CREATINE KINASE 157 U/L (26-192)
[2016-12-27 01:15] LABS: ANION GAP 8 MEQ/L (5-15); BICARBONATE 26.2 MEQ/L (21.0-32.0); BLOOD UREA NITROGEN 28 MG/DL (7-18); CHLORIDE 105 MEQ/L (98-107); GLOMERULAR FILTRATION RATE 80 ML/MIN (>89); POTASSIUM 4.3 MEQ/L (3.5-5.1); SODIUM (NA) 139 MEQ/L (136-145)
[2016-12-27 01:25] LABS: CKMB 0.7 NG/ML (0.5-3.6)
[2016-12-27 01:44] VITALS: BP 130/75; PULSE 84; RESP 18; O2SAT 98
[2016-12-27 02:24] VITALS: BP 125/77
[2016-12-27] MEDS ORDERED: IOHEXOL 350 MG/ML 10 ML VIAL (for RAD DIAG) IV ONE (02:28)
--- NOTE | 2016-12-27 02:29 | RADRPT ---
EXAM DATE/TIME: 12/27/2016 02:19 [facility] COMPARISON: No previous studies available for comparison. INDICATIONS : Hypertension. Headaches. RADIATION DOSE: 63.68 CTDIvol (mGy) MEDICAL HISTORY : Hypertension. Gastroesophageal reflux disease. SURGICAL HISTORY : Hysterectomy. ENCOUNTER: Initial ACUITY: 1 day PAIN SCALE: 4/10 LOCATION: cranial TECHNIQUE: Multiple contiguous axial images were obtained of the head. Using automated exposure control and adj ustment of the mA and/or kV according to patient size, radiation dose was kept as low as reasonably a chievable to obtain optimal diagnostic quality images. FINDINGS: CEREBRUM: The ventricles are normal for age. No evidence of midline shift, mass lesion, hemorrhage or acute in farction. No extra-axial fluid collections are seen. POSTERIOR FOSSA: The cerebellum and brainstem are intact. The 4th ventricle is midline. The cerebellopontine angle i s unremarkable. EXTRACRANIAL: The visualized portion of the orbits is intact. SKULL: The calvaria is intact. No evidence of skull fracture. CONCLUSION: Normal examination. Denzel Kilgore MD on December 27, 2016 at 2:27 Board Certified Radiologist. This report was verified electronically.
[2016-12-27] MEDS ORDERED: ACETAMINOPHEN 325 MG TAB PO ONE (02:30)
--- NOTE | 2016-12-27 02:55 | RADRPT ---
EXAM DATE/TIME: 12/27/2016 02:22 [facility] COMPARISON: No previous studies available for comparison. INDICATIONS : Hypertension. IV CONTRAST: 95 cc Omnipaque 350 (iohexol) IV RADIATION DOSE: 23.94 CTDIvol (mGy) MEDICAL HISTORY : Hypertension. SURGICAL HISTORY : Hysterectomy. ENCOUNTER: Initial ACUITY: 1 day PAIN SCALE: 0/10 LOCATION: chest abdomen TECHNIQUE: Volumetric scanning was performed using a multi-row detector CT scanner. The data was post processed with a variety of visualization algorithms including full volume maximum intensity projection, multi -planar sliding thin slab reformation, curved planar reformation, and surface rendering techniques. Using automated exposure control and adjustment of the mA and/or kV according to patient size, radiat ion dose was kept as low as reasonably achievable to obtain optimal diagnostic quality images. FINDINGS: LUNGS: There is no consolidation or pneumothorax. No concerning pulmonary nodule is visualized. No pleural fluid is present. MEDIASTINUM: No abnormally enlarged lymph nodes by CT criteria. No axillary or hilar abnormalities are identified. ABDOMEN: The liver and spleen are free of focal defects. The gallbladder and pancreas demonstrate no abnormali ty. The adrenal glands are normal. The kidneys demonstrate no evidence of solid renal mass or hydrone phrosis. No free fluid or abdominal masses are identified. No para-aortic adenopathy is seen. PELVIS: No evidence of free fluid or pelvic mass. No abnormally enlarged inguinal or retroperitoneal lymph no sky are present. The bladder is unremarkable. THORACIC AORTA: The thoracic aortic root is normal with normal branching of the great vessels. There is no evidence of aneurysm or dissection. ABDOMINAL AORTA: The aorta is normal in caliber without aneurysm or dissection. The renal arteries are patent bilater ally. The proximal celiac and superior mesenteric arteries are patent. 70% stenosis involving the or igin of the SMA PELVIC VESSELS: The internal iliac and external iliac vessels are patent without aneurysm or stenosis. CONCLUSION: No evidence of aortic dissection or aneurysm. There is atherosclerotic disease with a 70% stenosis in volving the proximal SMA, 5 mm after its origin. Denzel Kilgore MD on December 27, 2016 at 2:51 Board Certified Radiologist. This report was verified electronically.
--- NOTE | 2016-12-27 22:30 | EKG ---
Date Performed: 12/27/2016 Time Performed: 00:44:50 PTAGE: 56 years EKG: Sinus rhythm MINIMAL VOLTAGE CRITERIA FOR LVH, CONSIDER NORMAL VARIANT BORDERLINE ECG PREVIOUS TRACING : 11/22/2016 07.02 Compared to prior tracing no significant change DOCTOR: Rickey Ceja Interpretating Date/Time 12/27/2016 22:28:42
== END 2016-12-27 03:52 | disposition home or self-care (01) ==
LOC: NEPE 23:36
DX: I10 Essential (primary) hypertension (principal); I67.1 Cerebral aneurysm, nonruptured; R06.02 Shortness of breath; Z79.82 Long term (current) use of aspirin; Z79.899 Other long term (current) drug therapy; Z87.891 Personal history of nicotine dependence
CPT/HCPCS: 70450; 71010; 71275; 74174; 80048; 82550; 82552; 83880; 84484; 85025; 85610; 85730; 93005; 96374; 99284; Q9967

== ENCOUNTER 2017-01-03 10:18 | Emergency (ER) | payer OTHER ==
[~2017-01-03] VITALS: Ht 175.3 cm; Wt 115.0 kg
[~2017-01-03 10:18] MED LIST changes: +CLON0.1T PO; -DIAZ10 PO; -HYDR-3533 PO; +HYDR25TA5 PO; -TEMA15CA PO
[2017-01-03 10:20] VITALS: BP 169/86; PULSE 80; RESP 15; TEMP 98.2; O2SAT 98
[2017-01-03 10:38] VITALS: BP 137/88; PULSE 73; RESP 18; O2SAT 99
[2017-01-03] MEDS ORDERED: ACETAMINOPHEN 500 MG CPLT PO ONE (10:45)
--- NOTE | 2017-01-03 11:37 | RADRPT ---
EXAM DATE/TIME: 01/03/2017 11:16 [facility] COMPARISON: CT BRAIN W/O CONTRAST, December 27, 2016, 2:19. INDICATIONS : Headache, dizziness, numbness left arm RADIATION DOSE: 44.90 CTDIvol (mGy) MEDICAL HISTORY : Cardiovascular disease. Hypertension. brain aneurysm SURGICAL HISTORY : None. ENCOUNTER: Initial ACUITY: 1 day PAIN SCALE: 8/10 LOCATION: cranial TECHNIQUE: Multiple contiguous axial images were obtained of the head. Using automated exposure control and adjustment of the mA and/or kV according to patient size, radiation dose was kept as low as reasonably achievable to obtain optimal diagnostic quality images. FINDINGS: CEREBRUM: The ventricles are normal for age. No evidence of midline shift, mass lesion, hemorrha ge or acute infarction. No extra-axial fluid collections are seen. POSTERIOR FOSSA: The cerebellum and brainstem are intact. The 4th ventricle is midline. The cer ebellopontine angle is unremarkable. EXTRACRANIAL: The visualized portion of the orbits is intact. SKULL: The calvaria is intact. No evidence of skull fracture. CONCLUSION: Negative for acute process. Joe Alvarez MD FACR on January 03, 2017 at 11:34 Board Certified Radiologist. This report was verified electronically.
--- NOTE | 2017-01-03 11:48 | PD ---
HPI Chief Complaint: Hypertension Time Seen by Provider: 10:38 Travel History International Travel<30 days: No Contact w/Intl Traveler<30days: No Traveled to known affect area: No History of Present Illness HPI This is a 56-year-old female who presents to the emergency department with a history of hypertension and a known small aneurysm having woken up this morning at 7:30 with a headache described as dull, all across her head, constant, moderate severity with no associated vomiting. Patient has had headaches like this in the past. She checked her blood pressure and it was in the 190s systolic. She took her blood pressure medications. She's been taking clonidine at nighttime to help her sleep. She has an appointment at [facility] to have her aneurysm evaluated. [facility] Past Medical History Arthritis: No Asthma: No Atrial Fibrillation: Yes Autoimmune Disease: No Anxiety: Yes Depression: Yes (PATIENT STATES SOMETIMES) Heart Rhythm Problems: Yes (PATIENT STATES SHE HAS HAD AN ISSUE WITH AFIB FOR 8 MONTHS) Cancer: No Cardiovascular Problems: Yes (AFIB, HTN) High Cholesterol: Yes Chemotherapy: No Chest Pain: No Congestive Heart Failure: No COPD: No Cerebrovascular Accident: No Diabetes: No Diminished Hearing: No Endocrine: No Gastrointestinal Disorders: Yes GERD: Yes Genitourinary: Yes (PATIENT WAS HOSPITALIZED IN 1985 FOR A KIDNEY ISSUE, DOES NOT REMEMBER WHAT) Headaches: Yes Hiatal Hernia: No Hypertension: Yes Immune Disorder: No Insomnia: Yes Kidney Stones: No Musculoskeletal: Yes Neurologic: Yes (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) Psychiatric: Yes Reproductive: No Respiratory: No Migraines: No Radiation Therapy: No Renal Failure: No Seizures: No Sickle Cell Disease: No Sleep Apnea: No Thyroid Disease: No Ulcer: No Tetanus Vaccination: < 5 Years Influenza Vaccination: Yes ?: Not : 6 Para: 4 Miscarriage: 1 : 1 Tubal Ligation: Yes Past Surgical History Abdominal Surgery: No Cardiac Surgery: No Section: Yes Ear Surgery: No Endocrine Surgery: No Eye Surgery: No Genitourinary Surgery: No Gynecologic Surgery: Yes (, PARTIAL HYSTERECTOMY) Hysterectomy: Yes (PARTIAL) Oral Surgery: No Thoracic Surgery: No Other Surgery: Yes Social History Alcohol Use: No Tobacco Use: No (10/2015 QUIT) Substance Use: No (MARIJUANA (DENIES)) Allergies-Medications (Allergen,Severity, Reaction): Coded Allergies: No Known Allergies (Verified , 01/03/17) Reported Meds & Prescriptions Reported Meds & Active Scripts Active Reported Hydrochlorothiazide 25 Mg Tab 25 Mg PO DAILY Clonidine (Clonidine HCl) 0.1 Mg Tab 0.1 Mg PO HS Vitamin D3 (Cholecalciferol) 1,000 Unit Tab 1,000 Units PO DAILY Gabapentin 300 Mg Cap 300 Mg PO HS Tramadol (Tramadol HCl) 50 Mg Tab 50 Mg PO QID PRN Pantoprazole (Pantoprazole Sodium) 40 Mg Tab 40 Mg PO DAILY PRN Flexeril (Cyclobenzaprine HCl) 10 Mg Tab 10 Mg PO HS Buspirone (Buspirone HCl) 15 Mg Tab 15 Mg PO BID PRN Nitroglycerin SL (Nitroglycerin) 0.4 Mg Subl 0.4 Mg SL DIRECTED PRN ONE TABLET UNDER THE TONGUE NEEDED FOR CHEST PAIN, MAY REPEAT EVERY FIVE MINUTES FOR A TOTAL OF 3 DOSES OR CALL 911 IF NO RELIEF Metoprolol Tartrate 50 Mg Tab 50 Mg PO BID Aspirin 325 Mg Tab 325 Mg PO DAILY Review of Systems Except as stated in HPI: all other systems reviewed are Neg Physical Exam Narrative GENERAL:Well appearing, no acute distress SKIN: Focused skin assessment warm and dry. HEAD: Atraumatic. Normocephalic. EYES: Pupils equal and round. No injection or drainage. ENT: Moist mucous membranes NECK: Trachea midline. CARDIOVASCULAR: Regular rate and rhythm. No murmur appreciated. RESPIRATORY: Clear to auscultation. Breath sounds equal bilaterally. GASTROINTESTINAL: Abdomen soft, non-tender, nondistended. MUSCULOSKELETAL: No obvious deformities. NEUROLOGICAL: Awake and alert. No obvious cranial nerve deficits. No dysarthria or aphasia. No upper or lower extremity drift. No upper extremity ataxia. PSYCHIATRIC: Appropriate mood and affect; insight and judgment normal. Data Data Last Documented VS Vital Signs Date Time Temp Pulse Resp B/P Pulse Ox O2 Delivery O2 Flow Rate FiO2 01/03/17 10:38 73 18 137/88 99 Room Air 01/03/17 10:[address] Brain W/O Iv Contrast(Rout) (01/03/17 ) Acetaminophen (Tylenol) (01/03/17 10:45) MDM Medical Decision Making Medical Screen Exam Complete: Yes Emergency Medical Condition: Yes Interpretation(s) Afebrile, no tachycardia, normotensive now CT head: No intracranial hemorrhage Differential Diagnosis Subarachnoid hemorrhage, hypertensive headache, hypertensive urgency, hypertensive emergency Narrative Course This is a 56-year-old female who presents to the emergency department having had onset of a headache this morning. She has a known aneurysm. Her headache started within the last [address] scan was obtained of the head which was reassuring. I don't think we need to do a lumbar puncture at this time. She has a scheduled appointment at [facility] for neurosurgical consultation regarding her aneurysm. I suspect her headaches and her poor blood pressure control are related to taking clonidine at night. I told her to stop taking it as this may be contributing to some rebound hypertension in the morning. Patient will be discharged home. Diagnosis Primary Impression: Hypertension Qualified Code: I10 - Essential hypertension Patient Instructions: General Instructions Additional Instructions: If you develop severe worsening headache, persistent vomiting, numbness, weakness, difficulty walking or difficulty talking return to the emergency department immediately. Med/Other Pt SpecificInfo: No Change to Meds Disposition: 01 DISCHARGE HOME Condition: Stable Estephania Hernandez MD Jan 03, 2017 11:48
[2017-01-03 11:53] VITALS: BP 132/82; PULSE 68; RESP 17; O2SAT 97
== END 2017-01-03 12:15 | disposition home or self-care (01) ==
LOC: NEPC 10:18
DX: I10 Essential (primary) hypertension (principal); R20.0 Anesthesia of skin; R42 Dizziness and giddiness; I48.91 Unspecified atrial fibrillation; R51 Headache; I67.1 Cerebral aneurysm, nonruptured
CPT/HCPCS: 70450

== ENCOUNTER 2017-01-03 20:41 | Emergency (ER) | payer OTHER ==
[~2017-01-03] VITALS: Ht 177.8 cm; Wt 82.0 kg
[2017-01-03 20:42] VITALS: BP 208/108; PULSE 118; RESP 20; TEMP 98.9; O2SAT 100
[2017-01-03] MEDS ORDERED: SODIUM CHLORIDE 0.9% FLUSH 10 ML FLUSH IVF PRN (21:15)
--- NOTE | 2017-01-03 21:16 | PD ---
HPI Chief Complaint: GI Complaint Time Seen by Provider: 21:12 Travel History International Travel<30 days: No Contact w/Intl Traveler<30days: No Traveled to known affect area: No History of Present Illness HPI 56-year-old female presents to the emergency department for evaluation of increased heart rate. She states that she took her heart rate prior to arrival and was 120. She also states she has chest tightness associated with her that radiates to left arm. She reports having a normal stress test one month ago at [facility]. Patient reports history of A. fib, but states she has not been on it since 2012. Patient was seen earlier today for hypertension and was discharged home. Patient does report history of hypertension and aneurysm as well. She did take her metoprolol early due to increased heart rate. She denies any other complaints at this time. Patient was seen earlier today for hypertension. PFSH Past Medical History Arthritis: No Asthma: No Atrial Fibrillation: Yes Autoimmune Disease: No Anxiety: Yes Depression: Yes (PATIENT STATES SOMETIMES) Heart Rhythm Problems: Yes (PATIENT STATES SHE HAS HAD AN ISSUE WITH AFIB FOR 8 MONTHS) Cancer: No Cardiovascular Problems: Yes (DE, HTN, A-FIB) High Cholesterol: Yes Chemotherapy: No Chest Pain: No Congestive Heart Failure: No COPD: No Cerebrovascular Accident: No Diabetes: No Diminished Hearing: No Endocrine: No Gastrointestinal Disorders: Yes GERD: Yes Genitourinary: Yes (PATIENT WAS HOSPITALIZED IN 1985 FOR A KIDNEY ISSUE, DOES NOT REMEMBER WHAT) Headaches: Yes Hiatal Hernia: No Hypertension: Yes Immune Disorder: No Insomnia: Yes Kidney Stones: No Musculoskeletal: Yes Neurologic: Yes (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) Psychiatric: Yes Reproductive: No Respiratory: No Migraines: No Radiation Therapy: No Renal Failure: No Seizures: No Sickle Cell Disease: No Sleep Apnea: No Thyroid Disease: No Ulcer: No ?: Not : 6 Para: 4 Miscarriage: 1 : 1 Tubal Ligation: Yes Past Surgical History Abdominal Surgery: No Cardiac Surgery: No Section: Yes Ear Surgery: No Endocrine Surgery: No Eye Surgery: No Genitourinary Surgery: No Gynecologic Surgery: Yes (, PARTIAL HYSTERECTOMY) Hysterectomy: Yes (PARTIAL) Oral Surgery: No Thoracic Surgery: No Other Surgery: Yes Social History Alcohol Use: No Tobacco Use: No (10/2015 QUIT) Substance Use: No (MARIJUANA (DENIES)) Allergies-Medications (Allergen,Severity, Reaction): Coded Allergies: No Known Allergies (Verified , 01/03/17) Reported Meds & Prescriptions Reported Meds & Active Scripts Active Reported Hydrochlorothiazide 25 Mg Tab 25 Mg PO DAILY Clonidine (Clonidine HCl) 0.1 Mg Tab 0.1 Mg PO HS Vitamin D3 (Cholecalciferol) 1,000 Unit Tab 1,000 Units PO DAILY Gabapentin 300 Mg Cap 300 Mg PO HS Tramadol (Tramadol HCl) 50 Mg Tab 50 Mg PO QID PRN Pantoprazole (Pantoprazole Sodium) 40 Mg Tab 40 Mg PO DAILY PRN Flexeril (Cyclobenzaprine HCl) 10 Mg Tab 10 Mg PO HS Buspirone (Buspirone HCl) 15 Mg Tab 15 Mg PO BID PRN Nitroglycerin SL (Nitroglycerin) 0.4 Mg Subl 0.4 Mg SL DIRECTED PRN ONE TABLET UNDER THE TONGUE NEEDED FOR CHEST PAIN, MAY REPEAT EVERY FIVE MINUTES FOR A TOTAL OF 3 DOSES OR CALL 911 IF NO RELIEF Metoprolol Tartrate 50 Mg Tab 50 Mg PO BID Aspirin 325 Mg Tab 325 Mg PO DAILY Review of Systems Except as stated in HPI: all other systems reviewed are Neg Physical Exam Narrative GENERAL: Well-nourished, well-developed female patient, ambulatory. Afebrile. SKIN: Focused skin assessment warm/dry. HEAD: Normocephalic. Atraumatic. EYES: No scleral icterus. No injection or drainage. NECK: Supple, trachea midline. No JVD or lymphadenopathy. CARDIOVASCULAR: Regular rate and rhythm without murmurs, gallops, or rubs. RESPIRATORY: Breath sounds equal bilaterally. No accessory muscle use. Lungs sounds are clear to auscultation. GASTROINTESTINAL: Abdomen soft, non-tender, nondistended. MUSCULOSKELETAL: No cyanosis, or edema. BACK: Nontender without obvious deformity. No CVA tenderness. Data Data Last Documented VS Vital Signs Date Time Temp Pulse Resp B/P Pulse Ox O2 Delivery O2 Flow Rate FiO2 01/03/17 22:15 78 24 134/79 96 Room Air 01/03/17 20:42 98.9 Orders Electrocardiogram (01/03/17 21:10) Basic Metabolic Panel (Bmp) (01/03/17 21:10) Ckmb (Isoenzyme) Profile (01/03/17 21:10) Complete Blood Count With Diff (01/03/17 21:10) Magnesium (Mg) (01/03/17 21:10) Prothrombin Time / Inr (Pt) (01/03/17 21:10) Act Partial Throm Time (Ptt) (01/03/17 21:10) Troponin I (01/03/17 21:10) Chest, Single Ap (01/03/17 21:10) Ecg Monitoring (01/03/17 21:10) Bilateral Bp Monitoring (01/03/17 21:10) Iv Access Insert/Monitor (01/03/17 21:10) Oximetry (01/03/17 21:10) Oxygen Administration (01/03/17 21:10) Sodium Chloride 0.9% Flush (Ns Flush) (01/03/17 21:15) CKMB (01/03/17 21:20) CKMB% (01/03/17 21:20) Labs Laboratory Tests Test 01/03/17 21:20 White Blood Count 11.3 TH/MM3 Red Blood Count 4.68 MIL/MM3 Hemoglobin 14.2 GM/DL Hematocrit 42.6 % Mean Corpuscular Volume 91.0 FL Mean Corpuscular Hemoglobin 30.4 PG Mean Corpuscular Hemoglobin 33.4 % Concent Red Cell Distribution Width 13.4 % Platelet Count 295 TH/MM3 Mean Platelet Volume 9.3 FL Neutrophils (%) (Auto) 63.0 % Lymphocytes (%) (Auto) 25.1 % Monocytes (%) (Auto) 10.6 % Eosinophils (%) (Auto) 1.0 % Basophils (%) (Auto) 0.3 % Neutrophils # (Auto) 7.1 TH/MM3 Lymphocytes # (Auto) 2.8 TH/MM3 Monocytes # (Auto) 1.2 TH/MM3 Eosinophils # (Auto) 0.1 TH/MM3 Basophils # (Auto) 0.0 TH/MM3 CBC Comment DIFF FINAL Differential Comment Prothrombin Time 10.2 SEC Prothromb Time International 0.9 RATIO Ratio Activated Partial 26.8 SEC Thromboplast Time Sodium Level 138 MEQ/L Potassium Level 3.9 MEQ/L Chloride Level 103 MEQ/L Carbon Dioxide Level 26.3 MEQ/L Anion Gap 9 MEQ/L Blood Urea Nitrogen 29 MG/DL Creatinine 0.93 MG/DL Estimat Glomerular Filtration 76 ML/MIN Rate Random Glucose 105 MG/DL Calcium Level 9.3 MG/DL Magnesium Level 1.9 MG/DL Total Creatine Kinase 183 U/L Troponin I LESS THAN 0.02 NG/ML MDM Medical Decision Making Medical Screen Exam Complete: Yes Emergency Medical Condition: Yes Medical Record Reviewed: Yes Interpretation(s) Last Impressions Chest X-Ray 01/03/172109 Signed Impressions: Service Date/Time: Tuesday, January 03, 2017 21:28 - CONCLUSION: No evidence of acute cardiopulmonary disease. Geoffrey Elkins MD Differential Diagnosis Atrial fibrillation versus sinus tachycardia versus hypertension Narrative Course 56-year-old female presents to the emergency department for evaluation of increased heart rate that started prior to arrival. Patient states her heart rate was 120. She does report history of A. fib, but this was in 2012. EKG, CBC, BMP, magnesium, CK, troponin, PTT, PTT/INR ordered and pending. Patient reports normal stress test one month ago. Chest x-ray is ordered and pending. EKG shows SR, HR 88, no acute ST changes. CBC shows slight leukocytosis of 11.3. BMP shows no acute abnormality. CK is 183. Troponin is less than 0.02. Magnesium is 1.9. Coags are unremarkable. Chest x-ray shows no acute disease. Patient has been sinus rhythm, heart rate 70s to 80s during her stay in the emergency department. Her blood pressure is now 134/79. Patient had a recent negative stress test done. I started the patient to follow-up with her primary care physician. She verbalizes agreement. I discussed the findings with my attending physician, Dr. Barrientos, who agrees with plan and disposition. The patient was discharged in stable condition with instructions, including return instructions and follow up instructions. Diagnosis Primary Impression: Palpitations Referrals: Primary Care Physician call for appointment Patient Instructions: General Instructions, Palpitations (ED) Additional Instructions: Follow-up with your primary care physician. Return to the emergency department for any acute worsening of symptoms. Med/Other Pt SpecificInfo: No Change to Meds Disposition: 01 DISCHARGE HOME Condition: Stable Thania Gonzalez KYE Jan 03, 2017 21:16
[2017-01-03 21:25] VITALS: RESP 22; O2SAT 98
--- NOTE | 2017-01-03 21:32 | RADRPT ---
EXAM DATE/TIME: 01/03/2017 21:28 [facility] COMPARISON: CHEST SINGLE AP, December 27, 2016, 0:20. INDICATIONS : Chest tightness, irregular heart rate starting today MEDICAL HISTORY : None. SURGICAL HISTORY : None. ENCOUNTER: Initial ACUITY: 1 day PAIN SCORE: 0/10 LOCATION: Bilateral chest FINDINGS: A single view of the chest demonstrates the lungs to be symmetrically aerated without evidence of mas s, infiltrate or effusion. The cardiomediastinal contours are unremarkable. Osseous structures are intact. CONCLUSION: No evidence of acute cardiopulmonary disease. Geoffrey Elkins MD on January 03, 2017 at 21:30 Board Certified Radiologist. This report was verified electronically.
[2017-01-03 21:42] LABS: AUTOMATED NEUTROPHIL # 7.1 TH/MM3 (1.8-7.7); BASOPHIL % 0.3 % (0.0-2.0); EOSINOPHIL # 0.1 TH/MM3 (0-0.4); HEMATOCRIT 42.6 % (35.0-46.0); HEMO FLAGS DIFF FINAL; LYMPH % 25.1 % (9.0-44.0); LYMPHOCYTE # 2.8 TH/MM3 (1.0-4.8); MEAN CORPUSCULAR HEMOGLOBIN 30.4 PG (27.0-34.0); MEAN CORPUSCULAR HGB CONC 33.4 % (32.0-36.0); MONO % 10.6 % (0.0-8.0); PLATELET COUNT 295 TH/MM3 (150-450); RED BLOOD COUNT 4.68 MIL/MM3 (4.00-5.30); RED CELL DISTRIBUTION WIDTH 13.4 % (11.6-17.2); WHITE BLOOD COUNT 11.3 TH/MM3 (4.0-11.0)
[2017-01-03 21:52] LABS: APTT (PATIENT) 26.8 SEC (24.3-30.1); INTERNATIONAL NORMALIZED RATIO 0.9 RATIO; PROTHROMBIN TIME - PATIENT 10.2 SEC (9.8-11.6)
[2017-01-03 22:14] LABS: ANION GAP 9 MEQ/L (5-15); BICARBONATE 26.3 MEQ/L (21.0-32.0); BLOOD UREA NITROGEN 29 MG/DL (7-18); CHLORIDE 103 MEQ/L (98-107); CREATINE KINASE 183 U/L (26-192); GLOMERULAR FILTRATION RATE 76 ML/MIN (>89); MAGNESIUM 1.9 MG/DL (1.5-2.5); POTASSIUM 3.9 MEQ/L (3.5-5.1); SODIUM (NA) 138 MEQ/L (136-145)
[2017-01-03 22:15] VITALS: BP 134/79; PULSE 78; RESP 24; O2SAT 96
[2017-01-03 22:26] LABS: CKMB 0.8 NG/ML (0.5-3.6)
[2017-01-03 23:32] VITALS: BP 111/57; PULSE 77; RESP 20; O2SAT 99
--- NOTE | 2017-01-04 13:53 | EKG ---
Date Performed: 01/03/2017 Time Performed: 21:17:27 PTAGE: 56 years EKG: Sinus rhythm MINIMAL VOLTAGE CRITERIA FOR LVH, CONSIDER NORMAL VARIANT BORDERLINE ECG Compared to prior tracing n o significant change PREVIOUS TRACING : 12/27/2016 00.44 DOCTOR: Luigi Kaur Interpretating Date/Time 01/04/2017 13:52:40
== END 2017-01-03 23:44 | disposition home or self-care (01) ==
LOC: NEPC 20:41
DX: R00.2 Palpitations (principal); I10 Essential (primary) hypertension; K21.9 Gastro-esophageal reflux disease without esophagitis; R07.89 Other chest pain
CPT/HCPCS: 71010; 80048; 82550; 82552; 83735; 84484; 85025; 85610; 85730; 93005

== ENCOUNTER 2017-01-10 22:28 | Observation (INO) | payer OTHER ==
[2017-01-10 22:31] VITALS: BP 189/95; PULSE 84; RESP 16; TEMP 99; O2SAT 100
--- NOTE | 2017-01-10 22:35 | PD ---
Physical Exam Time Seen by Provider: 22:34 Narrative 56 y/o female here for evaluation of one hour duration of fatigue, chest pain, lightheadedness. CP partially relieved with nitroglycerin. Vital signs reviewed. Seen at triage desk. Awaiting bed placement. Data Data Last Documented VS Vital Signs Date Time Temp Pulse Resp B/P Pulse Ox O2 Delivery O2 Flow Rate FiO2 01/10/17 22:31 99.0 84 16 189/95 100 Room Air [facility] Medical Record Reviewed: Yes Supervised Visit with MATT: No David Johnson January 10, 2017 22:35
[2017-01-10 23:04] LABS: AUTOMATED NEUTROPHIL # 6.4 TH/MM3 (1.8-7.7); BASOPHIL # 0.1 TH/MM3 (0-0.2); BASOPHIL % 0.6 % (0.0-2.0); EOSINOPHIL # 0.1 TH/MM3 (0-0.4); EOSINOPHIL % 1.2 % (0.0-4.0); HEMATOCRIT 40.9 % (35.0-46.0); HEMO FLAGS DIFF FINAL; LYMPH % 22.8 % (9.0-44.0); LYMPHOCYTE # 2.2 TH/MM3 (1.0-4.8); MEAN CELL VOLUME 90.8 FL (80.0-100.0); MEAN CORPUSCULAR HEMOGLOBIN 31.8 PG (27.0-34.0); MONO % 9.5 % (0.0-8.0); NEUT % 65.9 % (16.0-70.0); PLATELET COUNT 279 TH/MM3 (150-450); RED BLOOD COUNT 4.51 MIL/MM3 (4.00-5.30); RED CELL DISTRIBUTION WIDTH 13.4 % (11.6-17.2); WHITE BLOOD COUNT 9.7 TH/MM3 (4.0-11.0)
--- NOTE | 2017-01-10 23:11 | RADRPT ---
EXAM DATE/TIME: 01/10/2017 22:51 [facility] COMPARISON: CHEST SINGLE AP, January 03, 2017, 21:28. INDICATIONS : Chest pain. MEDICAL HISTORY : A-fib. SURGICAL HISTORY : None. ENCOUNTER: Initial ACUITY: 1 day PAIN SCORE: 8/10 LOCATION: Bilateral chest FINDINGS: A single view of the chest demonstrates the lungs to be symmetrically aerated without evidence of mas s, infiltrate or effusion. The cardiomediastinal contours are unremarkable. Osseous structures are intact. CONCLUSION: 1. No acute cardiopulmonary disease. Luigi Frederick MD on January 10, 2017 at 23:08 Board Certified Radiologist. This report was verified electronically.
[2017-01-10 23:15] LABS: APTT (PATIENT) 26.1 SEC (24.3-30.1); PROTHROMBIN TIME - PATIENT 10.6 SEC (9.8-11.6)
[2017-01-10 23:36] LABS: ANION GAP 9 MEQ/L (5-15); BICARBONATE 29.4 MEQ/L (21.0-32.0); BLOOD UREA NITROGEN 24 MG/DL (7-18); CHLORIDE 100 MEQ/L (98-107); CREATINE KINASE 193 U/L (26-192); GLOMERULAR FILTRATION RATE 60 ML/MIN (>89); POTASSIUM 3.9 MEQ/L (3.5-5.1); SODIUM (NA) 138 MEQ/L (136-145)
[2017-01-10 23:48] LABS: CKMB 0.9 NG/ML (0.5-3.6)
[2017-01-11] VITALS (9 sets, daily range): BP systolic 102–129; BP diastolic 57–79; PULSE 62–82; RESP 16–18; TEMP 96.9–98; O2SAT 94–98
[2017-01-11] MEDS ORDERED: ATOR40TA16 PO (00:18)
--- NOTE | 2017-01-11 00:32 | PD ---
HPI Chief Complaint: Chest Pain Time Seen by Provider: 00:22 Travel History International Travel<30 days: No Contact w/Intl Traveler<30days: No Traveled to known affect area: No History of Present Illness HPI 56-year-old female with history of hypertension, atrial fibrillation several years ago, here for evaluation of palpitations and chest tightness. Patient reports that the symptoms started at around 9:30 PM. She reports taking a nitroglycerin with improvement in symptoms. She states that she took her heart rate at that time and it was in the 120s. She is still complaining of some substernal chest tightness. She denies any known history of coronary artery disease. She is a former smoker, quitting one year ago. No fevers, chills, cough, or recent illness. No history of DVT or PE. PFSH Past Medical History Arthritis: No Asthma: No Atrial Fibrillation: Yes Autoimmune Disease: No Anxiety: Yes Depression: Yes (PATIENT STATES SOMETIMES) Heart Rhythm Problems: Yes (PATIENT STATES SHE HAS HAD AN ISSUE WITH AFIB FOR 8 MONTHS) Cancer: No Cardiovascular Problems: Yes (ME, HTN, A-FIB) High Cholesterol: Yes Chemotherapy: No Chest Pain: No Congestive Heart Failure: No COPD: No Cerebrovascular Accident: No Diabetes: No Diminished Hearing: No Endocrine: No Gastrointestinal Disorders: Yes GERD: Yes Genitourinary: Yes (PATIENT WAS HOSPITALIZED IN 1985 FOR A KIDNEY ISSUE, DOES NOT REMEMBER WHAT) Headaches: Yes Hiatal Hernia: No Hypertension: Yes Immune Disorder: No Insomnia: Yes Kidney Stones: No Musculoskeletal: Yes Neurologic: Yes (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) Psychiatric: Yes Reproductive: No Respiratory: No Migraines: No Radiation Therapy: No Renal Failure: No Seizures: No Sickle Cell Disease: No Sleep Apnea: No Thyroid Disease: No Ulcer: No Tetanus Vaccination: < 5 Years ?: Not : 6 Para: 4 Miscarriage: 1 : 1 Tubal Ligation: Yes Past Surgical History Abdominal Surgery: No Cardiac Surgery: No Section: Yes Ear Surgery: No Endocrine Surgery: No Eye Surgery: No Genitourinary Surgery: No Gynecologic Surgery: Yes (, PARTIAL HYSTERECTOMY) Hysterectomy: Yes (PARTIAL) Oral Surgery: No Thoracic Surgery: No Other Surgery: Yes Social History Alcohol Use: No Tobacco Use: No (10/2015 QUIT) Substance Use: No (MARIJUANA (DENIES)...4 YEARS AGO ) Allergies-Medications (Allergen,Severity, Reaction): Coded Allergies: No Known Allergies (Verified , 01/10/17) Reported Meds & Prescriptions Reported Meds & Active Scripts Active Reported Atorvastatin (Atorvastatin Calcium) 40 Mg Tab 40 Mg PO HS Hydrochlorothiazide 25 Mg Tab 25 Mg PO DAILY Clonidine (Clonidine HCl) 0.1 Mg Tab 0.1 Mg PO HS Vitamin D3 (Cholecalciferol) 1,000 Unit Tab 1,000 Units PO DAILY Pantoprazole (Pantoprazole Sodium) 40 Mg Tab 40 Mg PO DAILY PRN Flexeril (Cyclobenzaprine HCl) 10 Mg Tab 10 Mg PO HS Buspirone (Buspirone HCl) 15 Mg Tab 15 Mg PO BID PRN Nitroglycerin SL (Nitroglycerin) 0.4 Mg Subl 0.4 Mg SL DIRECTED PRN ONE TABLET UNDER THE TONGUE NEEDED FOR CHEST PAIN, MAY REPEAT EVERY FIVE MINUTES FOR A TOTAL OF 3 DOSES OR CALL 911 IF NO RELIEF Metoprolol Tartrate 50 Mg Tab 50 Mg PO BID Aspirin 325 Mg Tab 325 Mg PO DAILY Review of Systems Except as stated in HPI: all other systems reviewed are Neg Physical Exam Narrative GENERAL: Well-developed, well-nourished, overweight, comfortable, no acute distress. SKIN: Focused skin assessment warm/dry. HEAD: Atraumatic. Normocephalic. EYES: Pupils equal and round. No scleral icterus. No injection or drainage. ENT: Mucous membranes pink and moist. NECK: Trachea midline. No JVD. CARDIOVASCULAR: Regular rate and rhythm. Distal pulses brisk and equal bilaterally. RESPIRATORY: No accessory muscle use. Clear to auscultation. Breath sounds equal bilaterally. GASTROINTESTINAL: Abdomen soft, non-tender, nondistended. MUSCULOSKELETAL: No obvious deformities. No clubbing. No cyanosis. No edema. NEUROLOGICAL: Awake and alert. No obvious cranial nerve deficits. Motor grossly within normal limits. Normal speech. PSYCHIATRIC: Appropriate mood and affect; insight and judgment normal. Data Data Last Documented VS Vital Signs Date Time Temp Pulse Resp B/P Pulse Ox O2 Delivery O2 Flow Rate FiO2 01/10/17 22:34 01/10/17 22:31 99.0 84 16 100 Room Air Orders Electrocardiogram (01/10/17 22:38) Basic Metabolic Panel (Bmp) (01/10/17 22:38) Ckmb (Isoenzyme) Profile (01/10/17 22:38) Complete Blood Count With Diff (01/10/17 22:38) Magnesium (Mg) (01/10/17 22:38) Prothrombin Time / Inr (Pt) (01/10/17 22:38) Act Partial Throm Time (Ptt) (01/10/17 22:38) Troponin I (01/10/17 22:38) Chest, Single Ap (01/10/17 22:38) CKMB (01/10/17 22:56) CKMB% (01/10/17 22:56) Urinalysis - C+S If Indicated (01/11/17 00:28) Urine Culture (01/11/17 00:30) Ceftriaxone Inj (Rocephin Inj) (01/11/17 01:30) Labs Laboratory Tests Test 01/10/17 01/11/17 22:56 00:30 White Blood Count 9.7 TH/MM3 Red Blood Count 4.51 MIL/MM3 Hemoglobin 14.3 GM/DL Hematocrit 40.9 % Mean Corpuscular Volume 90.8 FL Mean Corpuscular Hemoglobin 31.8 PG Mean Corpuscular Hemoglobin 35.0 % Concent Red Cell Distribution Width 13.4 % Platelet Count 279 TH/MM3 Mean Platelet Volume 9.0 FL Neutrophils (%) (Auto) 65.9 % Lymphocytes (%) (Auto) 22.8 % Monocytes (%) (Auto) 9.5 % Eosinophils (%) (Auto) 1.2 % Basophils (%) (Auto) 0.6 % Neutrophils # (Auto) 6.4 TH/MM3 Lymphocytes # (Auto) 2.2 TH/MM3 Monocytes # (Auto) 0.9 TH/MM3 Eosinophils # (Auto) 0.1 TH/MM3 Basophils # (Auto) 0.1 TH/MM3 CBC Comment DIFF FINAL Differential Comment Prothrombin Time 10.6 SEC Prothromb Time International 1.0 RATIO Ratio Activated Partial 26.1 SEC Thromboplast Time Sodium Level 138 MEQ/L Potassium Level 3.9 MEQ/L Chloride Level 100 MEQ/L Carbon Dioxide Level 29.4 MEQ/L Anion Gap 9 MEQ/L Blood Urea Nitrogen 24 MG/DL Creatinine 1.14 MG/DL Estimat Glomerular Filtration 60 ML/MIN Rate Random Glucose 121 MG/DL Calcium Level 9.0 MG/DL Magnesium Level 2.0 MG/DL Total Creatine Kinase 193 U/L Creatine Kinase MB 0.9 NG/ML Creatine Kinase MB % 0.5 % Troponin I LESS THAN 0.02 NG/ML Urine Color YELLOW Urine Turbidity HAZY Urine pH 6.5 Urine Specific [place] 1.029 Urine Protein TRACE mg/dL Urine Glucose (UA) NEG mg/dL Urine Ketones NEG mg/dL Urine Occult Blood NEG Urine Nitrite NEG Urine Bilirubin NEG Urine Urobilinogen LESS THAN 2.0 MG/DL Urine Leukocyte Esterase SMALL Urine RBC 1 /hpf Urine WBC 7 /hpf Urine Squamous Epithelial 3 /hpf Cells Urine Amorphous Sediment RARE Urine Bacteria MANY /hpf Urine Mucus FEW /lpf Microscopic Urinalysis Comment CULTURE INDICATED MDM Medical Decision Making Medical Screen Exam Complete: Yes Emergency Medical Condition: Yes Medical Record Reviewed: Yes Interpretation(s) EKG: Sinus, rate 84, left axis deviation, normal intervals, LVH, no acute ischemic abnormality. Differential Diagnosis ACS, pneumothorax, pericarditis, PE, pneumonia, dysrhythmia, musculoskeletal pain Narrative Course Initial vital signs show heart rate 84, blood pressure 189/95, pulse ox 100% on room air, oral temp of 99F. CBC is unremarkable. BMP is remarkable for BUN 24, creatinine 1.4, GFR 60 which is slightly worse than her baseline, otherwise unremarkable. Cardiac enzymes are negative. Chest x-ray shows no acute cardiopulmonary disease. Patient was complaining of some dysuria. UA is suggestive of UTI. She was started on Rocephin will be given a prescription for Macrobid. The patient reports taking it for aspirin today. She has several cardiac risk factors. Chest tightness improved with sublingual nitroglycerin. She'll be admitted to the chest pain center for further cardiac evaluation. She is amenable to this plan. Diagnosis Primary Impression: Chest pain Qualified Code: R07.9 - Chest pain, unspecified type Additional Impression: UTI (urinary tract infection) Qualified Code: N39.0 - Urinary tract infection with hematuria, site unspecified Admitting Information Admitting Physician Requests: Observation Scripts Nitrofurantoin Monohydrate Macrocrystals (Macrobid)100 Mg [id number] Mg PO BID 5 Days Ref 0 Prov:Mulugeta Morton MD 01/11/17 Mulugeta Morton MD January 11, 2017 00:32
[2017-01-11 00:46] LABS: BACTERIA, URINE MANY /hpf; BLOOD, URINE NEG (NEG); GLUCOSE,URINE NEG (NEG); KETONE, URINE NEG (NEG); MUCUS URINE FEW /lpf (OCC); NITRITE,URINE NEG (NEG); PH, URINE 6.5 (5.0-8.5); SQUAMOUS EPITHELIAL CELL URINE 3 /hpf (0-5); URINE COLOR YELLOW (YELLW/STRAW)
[2017-01-11 00:47] LABS: COMMENT (UR) CULTURE INDICATED; CULTURE IF INDICATED CULTURE INDICATED
[2017-01-11] MEDS ORDERED: MACR100C2 PO ×2 (01:24→11:18)
[2017-01-11] MEDS ORDERED: cefTRIAXone INJ 1,000 MG in SODIUM CHLORIDE 0.9% INJ 100 ML IV ONE (01:30)
[2017-01-11 03:44] LABS: CREATINE KINASE 183 U/L (26-192)
[2017-01-11 03:56] LABS: CKMB 0.5 NG/ML (0.5-3.6)
[2017-01-11 05:50] LABS: CREATINE KINASE 137 U/L (26-192)
[2017-01-11 06:03] LABS: CKMB LESS THAN 0.5 NG/ML (0.5-3.6)
[2017-01-11] MEDS ORDERED: HYDROCHLOROTHIAZIDE 25 MG TAB PO SCH (10:30)
[2017-01-11] MEDS ORDERED: busPIRone HCL 5 MG TAB PO PRN (10:30)
[2017-01-11] MEDS: METOPROLOL TARTRATE 50 MG TAB PO SCH ×2 (10:30→12:58)
[2017-01-11] MEDS ORDERED: PANTOPRAZOLE SOD 40 MG DELAYED RELEASE TAB PO PRN (10:30)
--- NOTE | 2017-01-11 10:34 | HHI.HP ---
[facility] Primary Care Physician Kathleen Buck M.D. Chief Complaint I went into A. fib. History of Present Illness This is a 56-year-old female with history of paroxysmal atrial fibrillation, hypertension, hyperlipidemia, GERD the presents complaining of "I went into A. fib." She has a pulse oximeter at home and checked her heart rate and was 128. Soon later she developed some discomfort in her chest. At that time she took nitroglycerin. She said discomfort resolved quickly and felt as if her heart rate was started to reduce as well. She is not followed by detective chief outpatient basis but states she had a heart catheterization September 2016 or [facility]. She states that she went in for chest discomfort, had a stress test that was abnormal that led to a heart catheterization that she states she was told was normal. I reviewed a consultation note from her prior visit at this hospital and the hospital said mentioned she had a normal cardiac catheterization September this year. Patient has no complaint of this time. Review of Systems General: Patient denies fevers, chills recent, and recent travel HEENT: Patient denies headache, sore throat, difficulty swallowing. Cardiovascular: Has the chest discomfort as mentioned above. Patient had the sensation of heart beating rapidly and thought it was her A. fib. Checked with pulse oximetry and was 128 heart rate. No syncope. Respiratory: Denies shortness of breath or inspirational chest discomfort. Denies coughing wheezing or hemoptysis. GI: Patient denies nausea, vomiting, diarrhea, abdominal pain, bloody stools. : Complains of burning with urination. Denies incontinence or dysuria. Denies discharge. Musculoskeletal: Patient denies joint pain or edema. Denies calf pain or edema. Neurovascular: Patient denies numbness, tingling, weakness in extremities. Denies headache. Endocrine: Denies polyuria and polydipsia. Hematologic: Denies easy bruising. Skin: Denies rash or itching. Past Family Social History Allergies: Coded Allergies: No Known Allergies (Verified , 01/10/17) Past Medical History Paroxysmal atrial fibrillation, hypertension, hyperlipidemia, GERD. Denies CAD and states she had normal heart catheterization September of this year. Past Surgical History Cardiac catheterization without intervention. Reported Medications Reported Meds & Active Scripts Active Macrobid (Nitrofurantoin Monoh/Nitrofur Macro) 100 Mg Cap 100 Mg PO BID 5 Days Reported Atorvastatin (Atorvastatin Calcium) 40 Mg Tab 40 Mg PO HS Hydrochlorothiazide 25 Mg Tab 25 Mg PO DAILY Clonidine (Clonidine HCl) 0.1 Mg Tab 0.1 Mg PO HS Vitamin D3 (Cholecalciferol) 1,000 Unit Tab 1,000 Units PO DAILY Pantoprazole (Pantoprazole Sodium) 40 Mg Tab 40 Mg PO DAILY PRN Buspirone (Buspirone HCl) 15 Mg Tab 15 Mg PO BID PRN Nitroglycerin SL (Nitroglycerin) 0.4 Mg Subl 0.4 Mg SL DIRECTED PRN ONE TABLET UNDER THE TONGUE NEEDED FOR CHEST PAIN, MAY REPEAT EVERY FIVE MINUTES FOR A TOTAL OF 3 DOSES OR CALL 911 IF NO RELIEF Metoprolol Tartrate 50 Mg Tab 50 Mg PO BID Aspirin 325 Mg Tab 325 Mg PO DAILY Active Ordered Medications Current Medications Medications (Trade) Dose Ordered Sig/Gemini Route Start Time Stop Time Status Last Admin (Aspirin) 325 mg DAILY PO 01/12/17 09:00 (Lipitor) 40 mg HS PO 01/11/17 21:00 (Buspar) 15 mg BID PRN PO 01/11/17 10:30 (Catapres) 0.1 mg HS PO 01/11/17 21:00 (Hydrodiuril) 25 mg DAILY PO 01/11/17 10:30 (Lopressor) 50 mg BID PO 01/11/17 10:30 UNV (Protonix) 40 mg DAILY PRN PO 01/11/17 10:30 UNV Family History There is family history of CAD. Social History patient does not smoke or use illicit drugs. Denies alcohol consumption. Physical Exam Vital Signs Vital Signs Date Time Temp Pulse Resp B/P Pulse Ox O2 Delivery O2 Flow Rate FiO2 01/11/17 07:50 98.0 74 18 102/57 94 01/11/17 07:36 70 01/11/17 04:58 69 01/11/17 04:40 96.9 75 18 117/68 95 01/11/17 03:51 96 21 01/11/17 01:00 76 16 129/79 98 Room Air 01/10/17 22:34 01/10/17 22:31 99.0 84 16 189/95 100 Room Air Physical Exam GENERAL: This is a well-nourished, well-developed patient, in no apparent distress. Patient speaks in clear complete sentences. Patient is pleasant. HEENT: Head is atraumatic and normocephalic. Neck is supple without lymphadenopathy and trachea is midline. No JVD or carotid bruits. CARDIOVASCULAR: Regular rate and rhythm without murmurs, gallops, or rubs. RESPIRATORY: Clear to auscultation. Breath sounds equal bilaterally. No wheezes , rales, or rhonchi. Chest wall is nontender. No use of accessory muscles. GASTROINTESTINAL: Abdomen is nontender, nondistended. Abdomen soft. No obvious pulsatile mass or bruit. No CVA tenderness. Strong femoral pulses bilaterally. Normal bowel sounds in all quadrants. MUSCULOSKELETAL: Patient is moving upper and lower extremities freely. No calf tenderness or edema, no Homans sign. Strong pulses in upper and lower extremities. NEUROLOGICAL: Patient is alert and oriented. Cranial nerves 2-12 are grossly intact. No focal deficits and speech is clear. SKIN: No rash and turgor is normal. Laboratory Laboratory Tests Test 01/10/17 01/11/17 01/11/17 01/11/17 22:56 00:30 03:00 05:05 White Blood Count 9.7 Red Blood Count 4.51 Hemoglobin 14.3 Hematocrit 40.9 Mean Corpuscular Volume 90.8 Mean Corpuscular Hemoglobin 31.8 Mean Corpuscular Hemoglobin 35.0 Concent Red Cell Distribution Width 13.4 Platelet Count 279 Mean Platelet Volume 9.0 Neutrophils (%) (Auto) 65.9 Lymphocytes (%) (Auto) 22.8 Monocytes (%) (Auto) 9.5 Eosinophils (%) (Auto) 1.2 Basophils (%) (Auto) 0.6 Neutrophils # (Auto) 6.4 Lymphocytes # (Auto) 2.2 Monocytes # (Auto) 0.9 Eosinophils # (Auto) 0.1 Basophils # (Auto) 0.1 CBC Comment DIFF FINAL Differential Comment Prothrombin Time 10.6 Prothromb Time International 1.0 Ratio Activated Partial 26.1 Thromboplast Time Sodium Level 138 Potassium Level 3.9 Chloride Level 100 Carbon Dioxide Level 29.4 Anion Gap 9 Blood Urea Nitrogen 24 Creatinine 1.14 Estimat Glomerular Filtration 60 Rate Random Glucose 121 Calcium Level 9.0 Magnesium Level 2.0 Total Creatine Kinase 193 183 137 Creatine Kinase MB 0.9 0.5 LESS THAN 0.5 Creatine Kinase MB % 0.5 Troponin I LESS THAN 0.02 LESS THAN 0.02 LESS THAN 0.02 Urine Color YELLOW Urine Turbidity HAZY Urine pH 6.5 Urine Specific [place] 1.029 Urine Protein TRACE Urine Glucose (UA) NEG Urine Ketones NEG Urine Occult Blood NEG Urine Nitrite NEG Urine Bilirubin NEG Urine Urobilinogen LESS THAN 2.0 Urine Leukocyte Esterase SMALL Urine RBC 1 Urine WBC 7 Urine Squamous Epithelial 3 Cells Urine Amorphous Sediment RARE Urine Bacteria MANY Urine Mucus FEW Microscopic Urinalysis Comment CULTURE INDICATED Date/Time Procedure Status Source Growth 01/11/17 00:30 Urine Culture Received Urine Clean Catch Pending Result Diagram: [id number]/[id number] Imaging Last 24 hours Impressions Chest X-Ray 01/10/[id number] Signed Impressions: Service Date/Time: Tuesday, January 10, 2017 22:51 - CONCLUSION: 1. No acute cardiopulmonary disease. Luigi Frederick MD Course EKGs have sinus rhythm without significant ST segment depressions or elevations. Assessment and Plan Assessment and Plan * Chest pain: Patient has history of paroxysmal A. fib. States she had normal heart catheterization September of this year. She had serial cardiac enzymes and EKGs for ruling out purposes at this visit. She will be seen by Dr. Rosa of cardiology in the chest pain center and will likely be discharged home with instructions to follow-up with local detective chief. She should resume her medications. * Hypertension: Continue current medication. * Hyperlipidemia:: Continue current medication. * UTI: Rx Macrobid. Patient is stable this time. She is agreeable to this plan. Arik oLvett January 11, 2017 10:33
--- NOTE | 2017-01-11 10:59 | EKG ---
Date Performed: 01/11/2017 Time Performed: 03:02:54 PTAGE: 56 years EKG: Sinus rhythm NORMAL ECG Since PREVIOUS TRACING , no significant change noted DOCTOR: Jasiel Rosa Interpretating Date/Time 01/11/2017 10:58:52
--- NOTE | 2017-01-11 10:59 | EKG ---
Date Performed: 01/11/2017 Time Performed: 04:54:35 PTAGE: 56 years EKG: Sinus rhythm NORMAL ECG PREVIOUS TRACING : 01/03/2017 21.17 Since previous tracing, no significant change noted DOCTOR: Jasiel Rosa Interpretating Date/Time 01/11/2017 10:57:09
--- NOTE | 2017-01-11 11:02 | EKG ---
Date Performed: 01/10/2017 Time Performed: 22:46:10 PTAGE: 56 years EKG: Sinus rhythm MINIMAL VOLTAGE CRITERIA FOR LVH, CONSIDER NORMAL VARIANT BORDERLINE ECG Since PREVIOUS TRACING , no significant change noted DOCTOR: Jasiel Rosa Interpretating Date/Time 01/11/2017 11:00:41
--- NOTE | 2017-01-11 11:20 | HHI.DCPOC ---
Discharge Care Plan Diagnosis: (1) Chest pain (2) Hypertension (3) Paroxysmal atrial fibrillation Goals to Promote Your Health * To prevent worsening of your condition and complications * To maintain your health at the optimal level Directions to Meet Your Goals Take your medications as prescribed Follow your dietary instruction Follow activity as directed Keep your appointments as scheduled Take your immunizations and boosters as scheduled If your symptoms worsen call your PCP, if no PCP go to Urgent Care Center or Emergency Room Smoking is Dangerous to Your Health. Avoid second hand smoke Call the 24-hour hour crisis hotline for domestic abuse at Arik Lovett January 11, 2017 11:20
[2017-01-11] MEDS ORDERED: cloNIDine HCL 0.1 MG TAB PO SCH (21:00)
[2017-01-11] MEDS ORDERED: ATORVASTATIN 40 MG TAB PO SCH (21:00)
[2017-01-12] MEDS ORDERED: ASPIRIN 325 MG TAB PO SCH (09:00)
== END 2017-01-11 15:00 | disposition home or self-care (01) ==
LOC: NEPC 22:28 → NEDA 01-11 01:26 → NEPFCDU 01-11 04:13
PROVIDERS: ADMIT Internal Medicine Cardiovascular Disease; ATTEND Internal Medicine Cardiovascular Disease
DX: R07.89 Other chest pain (principal); I10 Essential (primary) hypertension; E78.5 Hyperlipidemia, unspecified; N39.0 Urinary tract infection, site not specified; I48.0 Paroxysmal atrial fibrillation; K21.9 Gastro-esophageal reflux disease without esophagitis; E78.00 Pure hypercholesterolemia, unspecified; F41.9 Anxiety disorder, unspecified; F32.9 Major depressive disorder, single episode, unspecified; Z79.82 Long term (current) use of aspirin; Z87.891 Personal history of nicotine dependence
CPT/HCPCS: 71010; 80048; 81001; 82550; 82552; 83735; 84484; 85025; 85610; 85730; 87077; 87086; 87186; 93005; 99285; G0378; J0696

== ENCOUNTER 2017-03-09 18:25 | Emergency (ER) | payer OTHER ==
[~2017-03-09] VITALS: Ht 175.3 cm; Wt 100.0 kg
[~2017-03-09 18:25] MED LIST changes: +ATOR40TA16 PO; -CYCL1TAB29 PO; -GABA300C5 PO; +MACR100C2 PO; -TRAM50TA PO
[2017-03-09 18:26] VITALS: BP 170/86; PULSE 94; RESP 16; TEMP 98.3; O2SAT 98
--- NOTE | 2017-03-09 18:34 | PD ---
Physical Exam Time Seen by Provider: 18:33 Narrative 56 y/o female with L foot pain for 2 days. Vital signs reviewed. Seen at triage desk. Awaiting bed placement. Data Data Last Documented VS Vital Signs Date Time Temp Pulse Resp B/P Pulse Ox O2 Delivery O2 Flow Rate FiO2 03/09/17 18:26 98.3 94 16 170/86 98 MDM Medical Record Reviewed: Yes Supervised Visit with MATT: No David Johnson Mar 09, 2017 18:34
[2017-03-09 20:50] VITALS: BP 160/79; PULSE 89; RESP 18; O2SAT 98
--- NOTE | 2017-03-09 20:53 | PD ---
HPI Chief Complaint: Injury Time Seen by Provider: 20:53 Travel History International Travel<30 days: No Contact w/Intl Traveler<30days: No Traveled to known affect area: No History of Present Illness HPI 56 year old female presents to the emergency department for evaluation of bilateral ankle/calf pain for 2 days. She states it is more painful with walking. No fevers/chills. No injury. Patient denies any history of pain to her legs/ankles. Patient denies any erythema, states her left ankle is swollen. Patient denies any chest pain or SOB. No abdominal pain, nausea, vomiting, diarrhea. No other complaints at this time. Patient has a PMH of paroxysmal atrial fibrillation, hypertension, hyperlipidemia, GERD. Patient states she is on Eliquis. Patient denies any history of IV drug use. PFSH Past Medical History Arthritis: No Asthma: No Atrial Fibrillation: Yes Autoimmune Disease: No Anxiety: Yes Depression: Yes (PATIENT STATES SOMETIMES) Heart Rhythm Problems: Yes (PATIENT STATES SHE HAS HAD AN ISSUE WITH AFIB FOR 8 MONTHS) Cancer: No Cardiac Catheterization: Yes Cardiovascular Problems: Yes (HTN) High Cholesterol: Yes Chemotherapy: No Chest Pain: No Congestive Heart Failure: No COPD: No Cerebrovascular Accident: No Diabetes: No Diminished Hearing: No Endocrine: No Gastrointestinal Disorders: Yes GERD: Yes Genitourinary: Yes (PATIENT WAS HOSPITALIZED IN 1985 FOR A KIDNEY ISSUE, DOES NOT REMEMBER WHAT) Headaches: Yes Hiatal Hernia: No Hypertension: Yes Immune Disorder: No Insomnia: Yes Kidney Stones: No Musculoskeletal: Yes Neurologic: Yes (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) Psychiatric: Yes Reproductive: No Respiratory: No Migraines: No Radiation Therapy: No Renal Failure: No Seizures: No Sickle Cell Disease: No Sleep Apnea: No Thyroid Disease: No Ulcer: No Tetanus Vaccination: < 5 Years Influenza Vaccination: Yes ?: Not : 6 Para: 4 Miscarriage: 1 : 1 Tubal Ligation: Yes Past Surgical History Abdominal Surgery: No Cardiac Surgery: No Section: Yes Ear Surgery: No Endocrine Surgery: No Eye Surgery: No Genitourinary Surgery: No Gynecologic Surgery: Yes (, PARTIAL HYSTERECTOMY) Hysterectomy: Yes (PARTIAL) Oral Surgery: No Thoracic Surgery: No Other Surgery: Yes Social History Alcohol Use: No Tobacco Use: No (10/2015 QUIT) Substance Use: No (MARIJUANA (DENIES)...4 YEARS AGO ) Allergies-Medications (Allergen,Severity, Reaction): Coded Allergies: No Known Allergies (Verified , 03/09/17) Reported Meds & Prescriptions Reported Meds & Active Scripts Active Reported Aspirin 81 Mg Chew 81 Mg CHEW DAILY Atorvastatin (Atorvastatin Calcium) 40 Mg Tab 40 Mg PO HS Clonidine (Clonidine HCl) 0.1 Mg Tab 0.1 Mg PO HS Buspirone (Buspirone HCl) 15 Mg Tab 15 Mg PO BID PRN Nitroglycerin SL (Nitroglycerin) 0.4 Mg Subl 0.4 Mg SL DIRECTED PRN ONE TABLET UNDER THE TONGUE NEEDED FOR CHEST PAIN, MAY REPEAT EVERY FIVE MINUTES FOR A TOTAL OF 3 DOSES OR CALL 911 IF NO RELIEF Metoprolol Tartrate 50 Mg Tab 50 Mg PO BID Review of Systems Except as stated in HPI: all other systems reviewed are Neg Physical Exam Narrative GENERAL: Well-nourished, well-developed female patient, ambulatory and in no acute distress. Afebrile. SKIN: Focused skin assessment warm/dry. HEAD: Normocephalic. Atraumatic. EYES: No scleral icterus. No injection or drainage. NECK: Supple, trachea midline. No JVD or lymphadenopathy. CARDIOVASCULAR: Regular rate and rhythm without murmurs, gallops, or rubs. RESPIRATORY: Breath sounds equal bilaterally. No accessory muscle use. Lung sounds are clear to auscultation throughout. GASTROINTESTINAL: Abdomen soft, non-tender, nondistended. MUSCULOSKELETAL: No cyanosis, or edema. Patient has tenderness over bilateral calfs, worse in the anterior bilateral ankles. BACK: Nontender without obvious deformity. No CVA tenderness. Data Data Last Documented VS Vital Signs Date Time Temp Pulse Resp B/P Pulse Ox O2 Delivery O2 Flow Rate FiO2 03/09/17 22:32 63 18 162/88 97 Room Air 03/09/17 18:26 98.3 Orders Ankle, Complete ([id number]) (03/09/17 ) Ankle, Complete ([id number]) (03/09/17 ) Basic Metabolic Panel (Bmp) (03/09/17 20:47) Potassium Chloride (Kcl) (03/09/17 23:00) Crutches (03/09/17 22:48) Labs Laboratory Tests Test 03/09/17 22:05 Sodium Level 142 MEQ/L Potassium Level 3.4 MEQ/L Chloride Level 106 MEQ/L Carbon Dioxide Level 27.9 MEQ/L Anion Gap 8 MEQ/L Blood Urea Nitrogen 14 MG/DL Creatinine 0.67 MG/DL Estimat Glomerular Filtration 111 ML/MIN Rate Random Glucose 84 MG/DL Calcium Level 9.3 MG/DL [facility] Medical Decision Making Medical Screen Exam Complete: Yes Emergency Medical Condition: Yes Medical Record Reviewed: Yes Interpretation(s) Last Impressions Ankle X-Ray 03/09/17 0000 Signed Impressions: Service Date/Time: Thursday, March 09, 2017 21:02 - CONCLUSION: Small spur off the inferior calcaneus. The ankle mortise is intact. Dayo Moffett MD Ankle X-Ray 03/09/17 0000 Signed Impressions: Service Date/Time: Thursday, March 09, 2017 21:05 - CONCLUSION: Mult spur off the inferior calcaneus. The ankle mortise is intact. Dayo Moffett MD Differential Diagnosis arthritis vs. peripheral neuropathy vs. hypokalemia vs. muscle spasm vs. unlikely fracture Narrative Course 56 year old female presents to the emergency department for evaluation of bilateral lower leg/ankle pain for 2 days. BMP is ordered and pending. X-ray of the left and right ankle are ordered and pending. BMP shows hypokalemia at 3.4. X-ray of the right ankle shows a small bone spur inferior calcaneus, ankle mortise is intact. X-ray of the left ankle shows a spur off the inferior calcaneus, ankle mortise intact. Physical exam shows no evidence of septic arthritis or cellulitis. Physical exam is reassuring. Patient is asking for Tico bandage some crutches. These will be applied. She is instructed to follow-up with primary care physician. She is to return for any acute worsening of symptoms. Patient verbalizes agreement and understanding. The patient was discharged in stable condition with instructions, including return instructions and follow up instructions. Diagnosis Primary Impression: Bilateral ankle pain Qualified Code: M25.571 - Acute bilateral ankle pain Referrals: Primary Care Physician 2 days Patient Instructions: Ankle Sprain (ED), General Instructions Additional Instructions: Elevate. Ice for 20 minutes 4-5 times daily. [id number] Tylenol every 4 hours as needed for pain. Follow-up with your primary care physician. Return to the emergency department for any acute worsening of symptoms. Med/Other Pt SpecificInfo: No Change to Meds Disposition: 01 DISCHARGE HOME Condition: Stable Thania Gonzalez Mar 09, 2017 20:53
[2017-03-09] MEDS ORDERED: ASPI81CH CHEW (20:57)
--- NOTE | 2017-03-09 21:26 | RADRPT ---
EXAM DATE/TIME: 03/09/2017 21:05 [facility] COMPARISON: No previous studies available for comparison. INDICATIONS : Pain when standing. MEDICAL HISTORY : None. SURGICAL HISTORY : None. ENCOUNTER: Initial ACUITY: 1 day PAIN SCORE: 5/10 LOCATION: Left ankle, anterior surface and pedal surface of heel. FINDINGS: Three view exam was performed of the left ankle. The bony structures are in normal alignment. No ev idence of fracture, dislocation, or soft tissue swelling. The ankle mortise is intact. No radiopaqu e foreign bodies are seen. Bony mineralization is normal. There is a small spur off the inferior scott caneus. CONCLUSION: Mult spur off the inferior calcaneus. The ankle mortise is intact. Dayo Moffett MD on March 09, 2017 at 21:23 Board Certified Radiologist. This report was verified electronically.
--- NOTE | 2017-03-09 21:26 | RADRPT ---
EXAM DATE/TIME: 03/09/2017 21:02 [facility] COMPARISON: No previous studies available for comparison. INDICATIONS : Pain from standing. When flexing foot, pain behind knee. MEDICAL HISTORY : None. SURGICAL HISTORY : None. ENCOUNTER: Initial ACUITY: 3 days PAIN SCORE: 5/10 LOCATION: Right ankle, metatarsal area. FINDINGS: Three view exam was performed of the right ankle. The bony structures are in normal alignment. No e vidence of fracture, dislocation, or soft tissue swelling. The ankle mortise is intact. No radiopaq ue foreign bodies are seen. Bony mineralization is normal. There is a small spur off the inferior ca lcaneus at the site of attachment of the plantar aponuerosis. CONCLUSION: Small spur off the inferior calcaneus. The ankle mortise is intact. Dayo Moffett MD on March 09, 2017 at 21:23 Board Certified Radiologist. This report was verified electronically.
[2017-03-09 22:32] VITALS: BP 162/88; PULSE 63; RESP 18; O2SAT 97
[2017-03-09 22:44] LABS: BICARBONATE 27.9 MEQ/L (21.0-32.0); POTASSIUM 3.4 MEQ/L (3.5-5.1)
[2017-03-09] MEDS ORDERED: POTASSIUM CHLORIDE 20 MEQ CONTROLLED RELEASE TAB PO ONE (23:00)
== END 2017-03-09 23:36 | disposition home or self-care (01) ==
LOC: NEPE 18:25
DX: M25.571 Pain in right ankle and joints of right foot (principal); M25.572 Pain in left ankle and joints of left foot; E87.6 Hypokalemia; I48.0 Paroxysmal atrial fibrillation; I10 Essential (primary) hypertension; E78.5 Hyperlipidemia, unspecified; K21.9 Gastro-esophageal reflux disease without esophagitis; F41.9 Anxiety disorder, unspecified; F32.9 Major depressive disorder, single episode, unspecified
CPT/HCPCS: 73610; 80048; 99284; E0113

== ENCOUNTER 2017-06-01 18:15 | Emergency (ER) | payer OTHER ==
[~2017-06-01] VITALS: Ht 175.3 cm; Wt 100.0 kg
[~2017-06-01 18:15] MED LIST changes: -ASPI325T PO; +ASPI81CH CHEW; -HYDR25TA5 PO; -MACR100C2 PO; -PANT40TA3 PO; -VITA100018 PO
[2017-06-01 18:17] VITALS: BP 192/96; PULSE 70; RESP 13; TEMP 98.6; O2SAT 97
[2017-06-01] MEDS ORDERED: APIX5TAB PO (18:36)
[2017-06-01] MEDS ORDERED: HYDR-3535 PO (18:37)
[2017-06-01] MEDS ORDERED: TRAZ100T6 PO (18:37)
--- NOTE | 2017-06-01 19:47 | PD ---
HPI Chief Complaint: Dizziness Time Seen by Provider: 19:45 Travel History International Travel<30 days: No Contact w/Intl Traveler<30days: No Traveled to known affect area: No History of Present Illness HPI 56 YO F with PMH of paroxysmal A. fib, HTN, HLD, GERD, on Eliquis presents to the ED for evaluation of 1 week history of N/V, abdominal pain and chest pain. Gradual onset. Intermittent. Rated 5/10. No alleviating or exacerbating factors reported. Patient denies fevers, chills, headache, vision changes, changes in bowel habits, dysuria. She states that she was taken off of Seroquel and started taking Trazodone a few before onset of symptoms. She is followed by Dr. Guadarrama. [facility] Past Medical History Arthritis: No Asthma: No Atrial Fibrillation: Yes Autoimmune Disease: No Anxiety: Yes Depression: Yes (PATIENT STATES SOMETIMES) Heart Rhythm Problems: Yes (PATIENT STATES SHE HAS HAD AN ISSUE WITH AFIB FOR 8 MONTHS) Cancer: No Cardiac Catheterization: Yes Cardiovascular Problems: Yes (HTN) High Cholesterol: Yes Chemotherapy: No Chest Pain: No Congestive Heart Failure: No COPD: No Cerebrovascular Accident: No Diabetes: No Diminished Hearing: No Endocrine: No Gastrointestinal Disorders: Yes GERD: Yes Genitourinary: Yes (PATIENT WAS HOSPITALIZED IN 1985 FOR A KIDNEY ISSUE, DOES NOT REMEMBER WHAT) Headaches: Yes Hiatal Hernia: No Hypertension: Yes Immune Disorder: Yes (obed ) Insomnia: Yes Kidney Stones: No Musculoskeletal: Yes Neurologic: Yes (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) Psychiatric: Yes Reproductive: No Respiratory: No Migraines: No Radiation Therapy: No Renal Failure: No Seizures: No Sickle Cell Disease: No Sleep Apnea: No Thyroid Disease: No Ulcer: No ?: Not : 6 Para: 4 Miscarriage: 1 : 1 Tubal Ligation: Yes Past Surgical History Abdominal Surgery: No Cardiac Surgery: No Section: Yes Ear Surgery: No Endocrine Surgery: No Eye Surgery: No Genitourinary Surgery: No Gynecologic Surgery: Yes (, PARTIAL HYSTERECTOMY) Hysterectomy: Yes (PARTIAL) Oral Surgery: No Thoracic Surgery: No Other Surgery: Yes Social History Alcohol Use: No Tobacco Use: No (10/2015 QUIT) Substance Use: No (MARIJUANA (DENIES)...4 YEARS AGO ) Allergies-Medications (Allergen,Severity, Reaction): Coded Allergies: No Known Allergies (Verified , 06/01/17) Reported Meds & Prescriptions Reported Meds & Active Scripts Active Reported Lortab (Hydrocodone-Acetaminophen) 10-325 Mg Tab 1 Tab PO Q4H PRN Trazodone (Trazodone HCl) 100 Mg Tablet 100 Mg PO HS Eliquis (Apixaban) 5 Mg Tab Unknown Dose PO BID Aspirin 81 Mg Chew 81 Mg CHEW DAILY Atorvastatin (Atorvastatin Calcium) 40 Mg Tab 40 Mg PO HS Clonidine (Clonidine HCl) 0.1 Mg Tab 0.1 Mg PO HS Buspirone (Buspirone HCl) 15 Mg Tab 15 Mg PO BID PRN Nitroglycerin SL (Nitroglycerin) 0.4 Mg Subl 0.4 Mg SL DIRECTED PRN ONE TABLET UNDER THE TONGUE NEEDED FOR CHEST PAIN, MAY REPEAT EVERY FIVE MINUTES FOR A TOTAL OF 3 DOSES OR CALL 911 IF NO RELIEF Metoprolol Tartrate 50 Mg Tab 50 Mg PO BID Review of Systems Except as stated in HPI: all other systems reviewed are Neg Physical Exam Narrative GENERAL: Well-nourished, well-developed black female in no acute distress. SKIN: Focused skin assessment warm/dry. HEAD: Normocephalic. Atraumatic. EYES: No scleral icterus. No injection or drainage. PERRLA. EOMI. NECK: Supple, trachea midline. No JVD or lymphadenopathy. CARDIOVASCULAR: Regular rate and rhythm without murmurs, gallops, or rubs. RESPIRATORY: Breath sounds equal bilaterally. No accessory muscle use. GASTROINTESTINAL: Abdomen soft, non-tender, nondistended. No palpable masses. No Elise sign. Active bowel sounds. MUSCULOSKELETAL: No cyanosis, or edema. NEUROLOGICAL: Awake and alert. Cranial nerves II through XII intact. Motor and sensory grossly within normal limits. 5/5 muscle strength in all muscle groups. Normal speech. BACK: Nontender without obvious deformity. No CVA tenderness. Data Data Last Documented VS Vital Signs Date Time Temp Pulse Resp B/P (MAP) Pulse Ox O2 Delivery O2 Flow Rate FiO2 06/01/17 23:17 06/01/17 23:17 98.1 86 18 100 Room Air Orders Orders Electrocardiogram (06/01/17 20:01) Complete Blood Count With Diff (06/01/17 20:01) Comprehensive Metabolic Panel (06/01/17 20:01) B-Type Natriuretic Peptide (06/01/17 20:01) Ckmb (Isoenzyme) Profile (06/01/17 20:) Troponin I (06/01/17 20:) Act Partial Throm Time (Ptt) (06/01/17 20:01) Prothrombin Time / Inr (Pt) (06/01/17 20:) Urinalysis - C+S If Indicated (06/01/17 20:) Chest, Single Ap (06/01/17 20:) Ct Brain W/O Iv Contrast(Rout) (06/01/17 20:01) Ecg Monitoring (06/01/17 20:) Iv Access Insert/Monitor (06/01/17:) Oximetry (06/01/17 20:) Meclizine (Antivert) (06/01/17 20:15) Sodium Chloride 0.9% Flush (Ns Flush) (06/01/17 20:15) Clonidine (Catapres) (06/01/17 20:30) CKMB (06/01/17 20:00) CKMB% (06/01/17 20:00) Pantoprazole (Protonix) (06/01/17 22:15) Ondansetron Odt (Zofran Odt) (06/01/17 22:15) Labs Laboratory Tests Test 06/01/17 20:00 06/01/17 22:11 White Blood Count 7.2 TH/MM3 Red Blood Count 4.64 MIL/MM3 Hemoglobin 14.0 GM/DL Hematocrit 42.8 % Mean Corpuscular Volume 92.2 FL Mean Corpuscular Hemoglobin 30.2 PG Mean Corpuscular Hemoglobin Concent 32.8 % Red Cell Distribution Width 14.0 % Platelet Count 216 TH/MM3 Mean Platelet Volume 10.1 FL Neutrophils (%) (Auto) 58.8 % Lymphocytes (%) (Auto) 24.4 % Monocytes (%) (Auto) 11.8 % Eosinophils (%) (Auto) 4.6 % Basophils (%) (Auto) 0.4 % Neutrophils # (Auto) 4.3 TH/MM3 Lymphocytes # (Auto) 1.8 TH/MM3 Monocytes # (Auto) 0.9 TH/MM3 Eosinophils # (Auto) 0.3 TH/MM3 Basophils # (Auto) 0.0 TH/MM3 CBC Comment DIFF FINAL Differential Comment Prothrombin Time 10.7 SEC Prothromb Time International Ratio 1.0 RATIO Activated Partial Thromboplast Time 24.3 SEC Blood Urea Nitrogen 18 MG/DL Creatinine 0.80 MG/DL Random Glucose 70 MG/DL Total Protein 8.2 GM/DL Albumin 3.6 GM/DL Calcium Level 9.7 MG/DL Alkaline Phosphatase 343 U/L Aspartate Amino Transf (AST/SGOT) 163 U/L Alanine Aminotransferase (ALT/SGPT) 294 U/L Total Bilirubin 0.3 MG/DL Sodium Level 139 MEQ/L Potassium Level 3.8 MEQ/L Chloride Level 104 MEQ/L Carbon Dioxide Level 27.7 MEQ/L Anion Gap 7 MEQ/L Estimat Glomerular Filtration Rate 90 ML/MIN Total Creatine Kinase 119 U/L Creatine Kinase MB 0.7 NG/ML Troponin I LESS THAN 0.02 NG/ML B-Type Natriuretic Peptide 18 PG/ML Urine Color YELLOW Urine Turbidity CLEAR Urine pH 6.0 Urine Specific Rector 1.018 Urine Protein NEG mg/dL Urine Glucose (UA) NEG mg/dL Urine Ketones NEG mg/dL Urine Occult Blood SMALL Urine Nitrite NEG Urine Bilirubin NEG Urine Urobilinogen LESS THAN 2.0 MG/DL Urine Leukocyte Esterase MOD Urine RBC 13 /hpf Urine WBC 5 /hpf Urine Squamous Epithelial Cells 3 /hpf Microscopic Urinalysis Comment CULT NOT INDICATED MDM Medical Decision Making Medical Screen Exam Complete: Yes Emergency Medical Condition: Yes Differential Diagnosis HTN versus Afib versus GERD versus ICH versus CVA versus ACS versus anemia versus UTI versus cholecystitis versus other Narrative Course 56 YO F with PMH of paroxysmal A. fib, HTN, HLD, GERD, on Eliquis presents to the ED for evaluation of 1 week history of N/V, abdominal pain and chest pain. Gradual onset. Intermittent. Rated 5/10. No alleviating or exacerbating factors reported. Patient denies fevers, chills, headache, vision changes, changes in bowel habits, dysuria. She states that she was taken off of Seroquel and started taking Trazodone a few before onset of symptoms. She is followed by Dr. Guadarrama. Patient is hypertensive on presentation. Physical exam reveals a nontoxic-appearing black female in no acute distress. No focal neuro deficits. Chest CTAB. Abdomen soft, nontender. No lower extremity edema. The patient was administered sublingual Zofran, Protonix and meclizine by mouth. EKG rate 67, sinus rhythm. MA interval 168, QRS 82, QTC 406. Normal axis. No ST changes. Reviewed by Dr. Zimmerman. CXR: No acute disease. Cardiac enzymes negative 1. Head CT: No acute disease per radiology review. CBC: WBC 7.2. Hemoglobin 14.0. INR 1.0. CMP: BUN 18, creatinine 0.8. Glucose 70. Bilirubin 0.3. AST 163, ALT 294. Alkaline phosphate 343. UA: No culture indicated. I reviewed the patient's record. She has a history of dizziness and GERD. I don't think there is anything new here today. The patient's instructed to follow-up with her primary care provider regarding her elevated LFTs. She is stable and discharged home. Diagnosis Primary Impression: Dizziness Additional Impressions: GERD (gastroesophageal reflux disease) Qualified Codes: K21.9 - Gastro-esophageal reflux disease without esophagitis Elevated LFTs Referrals: Primary Care Physician Patient Instructions: Dizziness (ED), Gastroesophageal Reflux Disease (ED), General Instructions Additional Instructions: Rest, hydrate. Resume at home medications as prescribed. Seek evaluation with your neurologist for ongoing dizziness. Follow-up with Dr. Buck for elevation of your LFTs this week. Return to the ED for any urgent or emergent medical condition. Disposition: 01 DISCHARGE HOME Condition: Stable Ankita Schaefer Jun 01, 2017 19:47
[2017-06-01 20:15] VITALS: BP 181/84; PULSE 66; RESP 18; O2SAT 100; O2SAT 96
[2017-06-01] MEDS ORDERED: SODIUM CHLORIDE 0.9% FLUSH 10 ML FLUSH IVF PRN (20:15)
[2017-06-01] MEDS ORDERED: MECLIZINE HCL 25 MG TAB PO ONE (20:15)
--- NOTE | 2017-06-01 20:21 | RADRPT ---
EXAM DATE/TIME: 06/01/2017 20:05 [facility] COMPARISON: CHEST SINGLE AP, January 10, 2017, 22:51. INDICATIONS : Dizziness and shortness of breath. MEDICAL HISTORY : Hypertension. SURGICAL HISTORY : None. ENCOUNTER: Initial ACUITY: 1 week PAIN SCORE: 2/10 LOCATION: Bilateral chest FINDINGS: A single view of the chest demonstrates the lungs to be symmetrically aerated without evidence of mas s, infiltrate or effusion. The cardiomediastinal contours are unremarkable. Osseous structures are intact. CONCLUSION: No acute disease. Jim Romano MD on June 01, 2017 at 20:19 Board Certified Radiologist. This report was verified electronically.
[2017-06-01] MEDS ORDERED: cloNIDine HCL 0.1 MG TAB PO ONE (20:30)
[2017-06-01 20:40] LABS: AUTOMATED NEUTROPHIL # 4.3 TH/MM3 (1.8-7.7); BASOPHIL % 0.4 % (0.0-2.0); EOSINOPHIL # 0.3 TH/MM3 (0-0.4); EOSINOPHIL % 4.6 % (0.0-4.0); HEMATOCRIT 42.8 % (35.0-46.0); HEMO FLAGS DIFF FINAL; LYMPH % 24.4 % (9.0-44.0); LYMPHOCYTE # 1.8 TH/MM3 (1.0-4.8); MEAN CELL VOLUME 92.2 FL (80.0-100.0); MEAN CORPUSCULAR HEMOGLOBIN 30.2 PG (27.0-34.0); MEAN CORPUSCULAR HGB CONC 32.8 % (32.0-36.0); MONO % 11.8 % (0.0-8.0); NEUT % 58.8 % (16.0-70.0); PLATELET COUNT 216 TH/MM3 (150-450); RED BLOOD COUNT 4.64 MIL/MM3 (4.00-5.30); WHITE BLOOD COUNT 7.2 TH/MM3 (4.0-11.0)
[2017-06-01 20:45] LABS: APTT (PATIENT) 24.3 SEC (24.3-30.1); PROTHROMBIN TIME - PATIENT 10.7 SEC (9.8-11.6)
[2017-06-01 21:08] LABS: ALT (GPT) 294 U/L (10-53); ANION GAP 7 MEQ/L (5-15); AST (GOT) 163 U/L (15-37); BICARBONATE 27.7 MEQ/L (21.0-32.0); BLOOD UREA NITROGEN 18 MG/DL (7-18); CHLORIDE 104 MEQ/L (98-107); GLOMERULAR FILTRATION RATE 90 ML/MIN (>89); POTASSIUM 3.8 MEQ/L (3.5-5.1); SODIUM (NA) 139 MEQ/L (136-145)
[2017-06-01 21:12] LABS: ALKALINE PHOSPHATASE 343 U/L (45-117); CREATINE KINASE 119 U/L (26-192); TOTAL BILIRUBIN ADULT 0.3 MG/DL (0.2-1.0)
--- NOTE | 2017-06-01 21:14 | RADRPT ---
EXAM DATE/TIME: 06/01/2017 20:54 [facility] COMPARISON: CT BRAIN W/O CONTRAST, January 03, 2017, 11:16. INDICATIONS : Patient complains of dizziness and headache today. RADIATION DOSE: 56.46 CTDIvol (mGy) MEDICAL HISTORY : Cardiovascular disease. Lupus. Hypertension. SURGICAL HISTORY : Hysterectomy. ENCOUNTER: Initial ACUITY: 1 day PAIN SCALE: 4/10 LOCATION: cranial TECHNIQUE: Multiple contiguous axial images were obtained of the head. Using automated exposure control and adj ustment of the mA and/or kV according to patient size, radiation dose was kept as low as reasonably a chievable to obtain optimal diagnostic quality images. DICOM format image data is available electro nically for review and comparison. FINDINGS: CEREBRUM: The ventricles are normal for age. No evidence of midline shift, mass lesion, hemorrhage or acute in farction. No extra-axial fluid collections are seen. POSTERIOR FOSSA: The cerebellum and brainstem are intact. The 4th ventricle is midline. The cerebellopontine angle i s unremarkable. EXTRACRANIAL: The visualized portion of the orbits is intact. SKULL: The calvaria is intact. No evidence of skull fracture. CONCLUSION: No acute disease. Jim Romano MD on June 01, 2017 at 21:12 Board Certified Radiologist. This report was verified electronically.
[2017-06-01 21:24] LABS: CKMB 0.7 NG/ML (0.5-3.6)
[2017-06-01 21:26] VITALS: BP 159/81; PULSE 73; RESP 18; O2SAT 98
[2017-06-01] MEDS ORDERED: PANTOPRAZOLE SOD 40 MG DELAYED RELEASE TAB PO ONE (22:15)
[2017-06-01] MEDS ORDERED: ONDANSETRON ODT 4 MG TAB PO ONE (22:15)
[2017-06-01 22:56] LABS: BLOOD, URINE SMALL (NEG); COMMENT (UR) CULT NOT INDICATED; CULTURE IF INDICATED CULT NOT INDICATED; GLUCOSE,URINE NEG (NEG); KETONE, URINE NEG (NEG); NITRITE,URINE NEG (NEG); SQUAMOUS EPITHELIAL CELL URINE 3 /hpf (0-5); URINE COLOR YELLOW (YELLW/STRAW)
[2017-06-01 23:17] VITALS: BP 159/76; PULSE 86; RESP 18; TEMP 98.1; O2SAT 100
--- NOTE | 2017-06-02 14:58 | EKG ---
Date Performed: 06/01/2017 Time Performed: 20:16:03 PTAGE: 56 years EKG: Sinus rhythm NORMAL ECG PREVIOUS TRACING : 01/11/2017 04.54 Since previous tracing, no significant change. DOCTOR: Jasiel Rosa Interpretating Date/Time 06/02/2017 14:57:16
== END 2017-06-01 23:33 | disposition home or self-care (01) ==
LOC: NEPC 18:15
DX: R42 Dizziness and giddiness (principal); R06.02 Shortness of breath; K21.9 Gastro-esophageal reflux disease without esophagitis; R79.89 Other specified abnormal findings of blood chemistry; I10 Essential (primary) hypertension; Z79.01 Long term (current) use of anticoagulants; Z87.891 Personal history of nicotine dependence
CPT/HCPCS: 70450; 71010; 80053; 81001; 82550; 82552; 83880; 84484; 85025; 85610; 85730; 93005; 99285

== ENCOUNTER → 2017-06-14 | Outpatient (CLI) | payer OTHER ==
[~2017-06-14] VITALS: Ht 175.3 cm; Wt 94.6 kg
[~2017-06-14] MED LIST changes: +AMOX500C PO; +APIX5TAB PO; +CHLORHEXIDINE GLUCONATE 2 % 1 PACK (2 CLOTHS) TOPICAL PRN; +DEXTROSE 5%-LACTATED RING INJ 1,000 ML IV SCH; +HYDR-3535 PO; +INSULIN HUMAN REGULAR 1,000 UNITS/10 ML VIAL SQ PRN; +LACTATED RINGER'S 1000 ML IV PRN; +METOPROLOL TARTRATE 25 MG TAB PO PRN; +METR500T10 PO; +PANT40TA3 PO; +POVIDONE IODINE 5% (ANTISEPSIS KIT) 4 APPLICATIONS EACH NARE PRN; +PROPOFOL 200 MG/20 ML AMP ONE; +SODIUM CHLORID 0.9% 500 ML IV PRN; +TRAZ100T6 PO
--- NOTE | 2017-06-14 11:38 | GIPROC ---
[facility] [address] [facility]. [facility], [address] EGD PROCEDURE REPORT EXAM DATE: 06/14/2017 PATIENT NAME: Lisa Solomon MR #: [id number] BIRTHDATE: 1960 ATTENDING: Preethi Dorsey MD ORDER #: [id number] REFUSE COLLECTOR SUPERVISOR: Olman Cavazos and Sheela Sol STATUS: outpatient INDICATIONS: The patient is a 56 yr old female here for an EGD due to abdominal pain PROCEDURE PERFORMED: EGD w/ biopsy MEDICATIONS: None and Per Anesthesia. TOPICAL ANESTHETIC: none CONSENT: The patient understands the risks and benefits of the procedure and understands that these risks include, but are not limited to: sedation, allergic reaction, infection, perforation and/or bleeding. Alternative means of evaluation and treatment include, among others: physical exam, x-rays, and/or surgical intervention. The patient elects to proceed with this endoscopic procedure. medical equipment was checked for proper function. Hand hygiene and appropriate measures for infection prevention was taken. After the risks, benefits and alternatives of the procedure were thoroughly explained, Informed consent was verified, confirmed and timeout was successfully executed by the treatment team. The patient was anesthetized with topical anesthesia and the [id number] (Pedi C) endoscope was introduced through the mouth and advanced to the second portion of the duodenum. Retroflexed views revealed a hiatal hernia The gastroscope was then slowly withdrawn and removed. Duodenitis severe -bulb and second portion-multiple ulcerations-biopsy gastritis antrum-biopsy esophagitis distal esophagus -biopsy. ADVERSE EVENTS: There were no complications. IMPRESSIONS: 1. Duodenitis severe -bulb and second portion-multiple ulcerations-biopsy gastritis antrum-biopsy esophagitis distal esophagus -biopsy 2. Retroflexed views revealed a hiatal hernia RECOMMENDATIONS: 1. Await biopsy results. Biopsy results will not be ready for 7-10 days. If you don't hear from us in two weeks, call our office for biopsy results. 2. Anti-reflux regimen 3. Continue PPI 4. Avoid NSAIDS 5. Restart anticoagulation today PATIENT CONDITION: stable DISPOSITION: Home REPEAT EXAM: Return 6 months EGD Preethi Dorsey MD eSigned: Preethi Dorsey MD 06/14/2017 11:38 AM cc: Kathleen Buck M.D. PATIENT NAME: SolomonLisa MR#: [id number]
--- NOTE | 2017-06-14 11:42 | GIPROC ---
[facility] [address] [facility]. [facility], [address] COLONOSCOPY PROCEDURE REPORT EXAM DATE: 06/14/2017 PATIENT NAME: Lisa Solomon MR #: [id number] BIRTHDATE: 1960 ENDOSCOPIST: Preethi Dorsey MD ORDER #: [id number] DOG SITTER: Olman Cavazos and Sheela Sol STATUS: outpatient INDICATIONS: The patient is a 56 yr old female here for a colonoscopy due to abdominal pain PROCEDURE PERFORMED: Colonoscopy with polypectomy Colonoscopy with biopsy MEDICATIONS: None and Per Anesthesia. PREP QUALITY: fair PREP TYPE:Other: ESTIMATED BLOOD LOSS: None CONSENT: The patient understands the risks and benefits of the procedure and understands that these risks include, but are not limited to: sedation, allergic reaction, infection, perforation and/or bleeding. Alternative means of evaluation and treatment include, among others: physical exam, x-rays, and/or surgical intervention. The patient elects to proceed with this endoscopic procedure. medical equipment was checked for proper function. Hand hygiene and appropriate measures for infection prevention was taken. After the risks, benefits and alternatives of the procedure were thoroughly explained, Informed consent was verified, confirmed and timeout was successfully executed by the treatment team. A digital exam revealed hemorrhoids The Pentax [id number] endoscope was introduced through the anus and advanced to the cecum, which was identified by both the appendix and ileocecal valve. The instrument was then slowly withdrawn as the colon was fully examined. COLON FINDINGS: Polyp pedunculated 1 cm-hot snare polypectomy with complete removal, another 4 mm polyp near it -hot snare polypectomy polyp sessile in sigmooid-hot snare polypectomy polyp diminutive hepatic flexure -cold biopsy with complete removal diverticulosis sigmoid,descending. Retroflexed views revealed internal hemorrhoids and Retroflexed views revealed small internal hemorrhoids The scope was then completely withdrawn from the patient and the procedure terminated. PROCEDURE WITHDRAWAL TIME:6minutes ADVERSE EVENTS: There were no complications. IMPRESSIONS: 1. Polyp pedunculated 1 cm-hot snare polypectomy with complete removal, another 4 mm polyp near it -hot snare polypectomy polyp sessile in sigmooid-hot snare polypectomy polyp diminutive hepatic flexure -cold biopsy with complete removal diverticulosis sigmoid,descending 2. Retroflexed views revealed internal hemorrhoids 3. Retroflexed views revealed small internal hemorrhoids 4. Revealed hemorrhoids RECOMMENDATIONS: 1. Await biopsy results. Biopsy results will not be ready for 7-10 days. If you don't hear from us in two weeks, call our office for results. 2. Benefiber 2 tsp daily 3. High fiber diet 4. Probiotics from any [facility] or health food store 5. Yearly rectal exams RECALL: Return 3 years Colonoscopy Preethi Dorsey MD eSigned: Preethi Dorsey MD 06/14/2017 11:41 AM cc: Kathleen Buck M.D. PATIENT NAME: Lisa Solomon MR#: [id number]
[2017-06-14 12:30] VITALS: BP 118/73; PULSE 67; RESP 20; TEMP 97.9; O2SAT 97
== END ==
LOC: HSDC 08:30
PROVIDERS: ATTEND Internal Medicine Gastroenterology
DX: R10.9 Unspecified abdominal pain (principal); K29.80 Duodenitis without bleeding; K20.9 Esophagitis, unspecified; K44.9 Diaphragmatic hernia without obstruction or gangrene; D12.4 Benign neoplasm of descending colon; D12.3 Benign neoplasm of transverse colon; K64.8 Other hemorrhoids; K29.50 Unspecified chronic gastritis without bleeding; R74.8 Abnormal levels of other serum enzymes; I10 Essential (primary) hypertension; G45.9 Transient cerebral ischemic attack, unspecified; G47.9 Sleep disorder, unspecified
CPT/HCPCS: 88305; 88312; J7120

== ENCOUNTER 2017-06-15 10:08 | Day surgery (SDC) | payer OTHER ==
[2017-06-15] VITALS (8 sets, daily range): BP systolic 91–118; BP diastolic 48–85; PULSE 58–71; RESP 18–20; TEMP 98.5–98.8; O2SAT 93–99
[~2017-06-15] VITALS: Ht 175.3 cm; Wt 58.2 kg
[~2017-06-15 10:08] MED LIST changes: -AMOX500C PO; -CHLORHEXIDINE GLUCONATE 2 % 1 PACK (2 CLOTHS) TOPICAL PRN; -DEXTROSE 5%-LACTATED RING INJ 1,000 ML IV SCH; -INSULIN HUMAN REGULAR 1,000 UNITS/10 ML VIAL SQ PRN; -LACTATED RINGER'S 1000 ML IV PRN; -METOPROLOL TARTRATE 25 MG TAB PO PRN; -METR500T10 PO; -PANT40TA3 PO; -POVIDONE IODINE 5% (ANTISEPSIS KIT) 4 APPLICATIONS EACH NARE PRN; -PROPOFOL 200 MG/20 ML AMP ONE; -SODIUM CHLORID 0.9% 500 ML IV PRN
[2017-06-15] MEDS ORDERED: LIDOCAINE HCL 1% 20 ML VIAL ONE (10:55)
[2017-06-15] MEDS ORDERED: MIDAZOLAM HCL 2 MG/2 ML VIAL ONE (11:28)
--- NOTE | 2017-06-15 11:57 | PD.RAD ---
Post CT Procedure Prog Note Pre Procedure Diagnosis: (1) Elevated LFTs Post Procedure Diagnosis: (1) Elevated LFTs Procedure Date: Jun 15, 2017 Supervising Radiologist: Aidan Silva Proceduralist/Assist: samreen smith Estimated blood loss: none Anesthesia: Conscious Sedation Plan of Activity Patient to Unit: ROPU Patient Condition: Good See PACS Report for procedural detail/treatment Aidan Silva MD Jun 15, 2017 11:57
[2017-06-15] MEDS ORDERED: SODIUM CHLOR 0.9% 1000 ML IV SCH (12:00)
--- NOTE | 2017-06-15 16:13 | RADRPT ---
EXAM DATE/TIME: 06/15/2017 11:44 [facility] COMPARISON: No previous studies available for comparison. INDICATIONS : Elevated liver enzymes. SEDATION TIME: 10 minutes BIOPSY SITE: liver MEDICATION(S): 1.) 2 mg midazolam (Versed) IV 2.) 100 mcg fentanyl (Sublimaze) IV DEVICE(S): 1.) 18 gauge Temno core biopsy needle 9cm MEDICAL HISTORY : None. SURGICAL HISTORY : None. ENCOUNTER: Initial ACUITY: 1 day PAIN SCORE: 0/10 LOCATION: Right lateral A total of one core specimen(s) were obtained and sent to the laboratory for pathologic evaluation. PROCEDURE: 1. CT guided liver biopsy. 2. Conscious sedation with continuous EKG and oximetry monitoring. Prior to the procedure informed consent was obtained. Any appropriate prior imaging studies were rev iewed. Using automated exposure control and adjustment of the mA and/or kV according to patient size, radiat ion dose was kept as low as reasonably achievable to obtain optimal diagnostic quality images. DICOM format image data is available electronically for review and comparison. The site was prepped in a sterile fashion. Full sterile technique was used, including cap, mask, eliane rile gloves and gown and a large sterile sheet. Hand hygiene and 2% chlorhexidine and/or betadine/al cohol prep was utilized per protocol for cutaneous antisepsis. The skin and subcutaneous tissues wer e infiltrated with local anesthetic solution. With CT guidance the previously identified target was localized. Biopsy was performed using the presc ribed needle as above. Adequate hemostasis was obtained with compression at the puncture site. Follow-up CT scan reveals no hemorrhage. The patient tolerated the procedure well and there were no complications. The patient was returned to the Radiology Outpatient Unit in stable condition. CONCLUSION: Uncomplicated CT guided biopsy. Aidan Silva MD on June 15, 2017 at 16:11 Board Certified Radiologist. This report was verified electronically.
== END 2017-06-15 16:07 | disposition home or self-care (01) ==
LOC: HRAD 10:08 → HRIP 10:08 → HRAD 16:07
PROVIDERS: ATTEND Internal Medicine Gastroenterology
DX: R74.8 Abnormal levels of other serum enzymes (principal); F41.9 Anxiety disorder, unspecified
CPT/HCPCS: 47000; 77012; 88307; 88313; J2250; J3010

== ENCOUNTER 2017-07-02 18:43 | Emergency (ER) | payer OTHER ==
[~2017-07-02] VITALS: Ht 175.3 cm; Wt 99.0 kg
[2017-07-02 18:46] VITALS: BP 228/112; PULSE 94; RESP 16; TEMP 98.4; O2SAT 97
--- NOTE | 2017-07-02 19:54 | PD ---
HPI Chief Complaint: Chest Pain Time Seen by Provider: 19:48 Travel History International Travel<30 days: No Contact w/Intl Traveler<30days: No Traveled to known affect area: No History of Present Illness HPI 56-year-old female with history of CVA 2, A. fib, hypertension, GERD, presents to emergency department for evaluation of hypertension and intermittent chest pressure throughout the day today. Patient states despite taking her antihypertensives, her blood pressure has been elevated. She has had a substernal pressure that does not radiate anywhere. It is associated with intermittent shortness of breath. She states she has also felt dizzy with it once or twice today. She is experiencing the pressure now describes it as a dull pressure. No nausea or vomiting. No recent illnesses, fever, chills. No other focal deficits or weakness. No other symptoms to report. Of note, patient states that she had a negative cardiac catheter in September 2016 at [facility]. In review of her records here, patient was seen and evaluated in the chest pain center in January 2017. She had serial cardiac enzymes and EKG without any acute abnormality. In the documentation also mentions the patient reported a negative cardiac catheter. Patient has not followed up with cardiology. PFSH Past Medical History Arthritis: No Asthma: No Atrial Fibrillation: Yes Autoimmune Disease: No Anxiety: Yes Depression: Yes (PATIENT STATES SOMETIMES) Heart Rhythm Problems: Yes (PATIENT STATES SHE HAS HAD AN ISSUE WITH AFIB FOR 8 MONTHS) Cancer: No Cardiac Catheterization: Yes Cardiovascular Problems: Yes (HYPERTENSION / LEFT EYE ANEURYSM / A-FIB) High Cholesterol: Yes Chemotherapy: No Chest Pain: No Congestive Heart Failure: No COPD: No Cerebrovascular Accident: Yes (TIA X 2) Diabetes: No Diminished Hearing: No Endocrine: No Gastrointestinal Disorders: Yes GERD: Yes Genitourinary: No Headaches: Yes Hiatal Hernia: No Hypertension: Yes Immune Disorder: Yes (denies obed) Insomnia: Yes Kidney Stones: No Musculoskeletal: Yes Neurologic: Yes (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, strokes x 2, 01/2017) Psychiatric: Yes (ANXIETY, DEPRESSION) Reproductive: No Respiratory: No Immunizations Current: Yes Migraines: No Radiation Therapy: No Renal Failure: No Seizures: No Sickle Cell Disease: No Sleep Apnea: No Thyroid Disease: No Ulcer: No ?: Not : 6 Para: 4 Miscarriage: 1 : 1 Tubal Ligation: Yes Past Surgical History Abdominal Surgery: No AICD: No Cardiac Surgery: No Section: Yes Ear Surgery: No Endocrine Surgery: No Eye Surgery: No Genitourinary Surgery: No Gynecologic Surgery: Yes (, PARTIAL HYSTERECTOMY) Hysterectomy: Yes (PARTIAL) Joint Replacement: No Oral Surgery: No Pacemaker: No Thoracic Surgery: No Other Surgery: Yes Social History Alcohol Use: No Tobacco Use: No (10/2015 QUIT) Substance Use: No Allergies-Medications (Allergen,Severity, Reaction): Coded Allergies: No Known Allergies (Verified , 07/02/17) Reported Meds & Prescriptions Reported Meds & Active Scripts Active Reported Pantoprazole (Pantoprazole Sodium) 40 Mg Tab 40 Mg PO BID Metronidazole 500 Mg Tab 500 Mg PO BID Amoxicillin 500 Mg Cap 500 Mg PO BID Lortab (Hydrocodone-Acetaminophen) 10-325 Mg Tab 1 Tab PO Q4H PRN Trazodone (Trazodone HCl) 100 Mg Tablet 100 Mg PO HS Eliquis (Apixaban) 5 Mg Tab 5 Mg PO BID Aspirin 81 Mg Chew 81 Mg CHEW DAILY Atorvastatin (Atorvastatin Calcium) 40 Mg Tab 40 Mg PO HS Clonidine (Clonidine HCl) 0.1 Mg Tab 0.1 Mg PO BID Buspirone (Buspirone HCl) 15 Mg Tab 15 Mg PO BID PRN Nitroglycerin SL (Nitroglycerin) 0.4 Mg Subl 0.4 Mg SL DIRECTED PRN ONE TABLET UNDER THE TONGUE NEEDED FOR CHEST PAIN, MAY REPEAT EVERY FIVE MINUTES FOR A TOTAL OF 3 DOSES OR CALL 911 IF NO RELIEF Metoprolol Tartrate 50 Mg Tab 50 Mg PO BID Review of Systems Except as stated in HPI: all other systems reviewed are Neg Physical Exam Narrative GENERAL: Well-nourished female patient, sitting up in bed in no acute distress. SKIN: Focused skin assessment warm/dry. HEAD: Atraumatic. Normocephalic. EYES: Pupils equal and round. No scleral icterus. No injection or drainage. ENT: No nasal bleeding or discharge. Mucous membranes pink and moist. NECK: Trachea midline. No JVD. CARDIOVASCULAR: Regular rate and rhythm. No murmur appreciated. RESPIRATORY: No accessory muscle use. Clear to auscultation. Breath sounds equal bilaterally. GASTROINTESTINAL: Abdomen soft, non-tender, nondistended. Hepatic and splenic margins not palpable. MUSCULOSKELETAL: No obvious deformities. No clubbing. No cyanosis. No edema. NEUROLOGICAL: Awake and alert. No obvious cranial nerve deficits. Motor grossly within normal limits. Normal speech. PSYCHIATRIC: Appropriate mood and affect; insight and judgment normal. Data Data Last Documented VS Vital Signs Date Time Temp Pulse Resp B/P (MAP) Pulse Ox O2 Delivery O2 Flow Rate FiO2 07/02/17 21:33 68 20 162/79 (106) 100 Nasal Cannula 2.00 07/02/17 18:46 98.4 Orders Orders Electrocardiogram (07/02/17 ) Basic Metabolic Panel (Bmp) (07/02/17 19:53) Ckmb (Isoenzyme) Profile (07/02/17 19:53) Complete Blood Count With Diff (07/02/17 19:53) Magnesium (Mg) (07/02/17 19:53) Prothrombin Time / Inr (Pt) (07/02/17 19:53) Act Partial Throm Time (Ptt) (07/02/17 19:53) Troponin I (07/02/17 19:53) Chest, Single Ap (07/02/17 19:53) Ecg Monitoring (07/02/17 19:53) Bilateral Bp Monitoring (07/02/17 19:53) Iv Access Insert/Monitor (07/02/17 19:53) Oximetry (07/02/17 19:53) Oxygen Administration (07/02/17 19:53) Aspirin Chew (Aspirin Chew) (07/02/17 20:00) Sodium Chloride 0.9% Flush (Ns Flush) (07/02/17 20:00) Sodium Chlorid 0.9% 500 Ml Inj (Ns 500 M (07/02/17 20:00) Hydralazine Inj (Apresoline Inj) (07/02/17 20:00) Ckmb (Isoenzyme) Profile (07/02/17 23:15) Troponin I (07/02/17:15) Electrocardiogram (07/02/17:) Labs Laboratory Tests Test 07/02/17 20:15 White Blood Count 12.7 TH/MM3 Red Blood Count 4.65 MIL/MM3 Hemoglobin 14.2 GM/DL Hematocrit 42.6 % Mean Corpuscular Volume 91.7 FL Mean Corpuscular Hemoglobin 30.6 PG Mean Corpuscular Hemoglobin Concent 33.4 % Red Cell Distribution Width 15.0 % Platelet Count 261 TH/MM3 Mean Platelet Volume 10.1 FL Neutrophils (%) (Auto) 66.5 % Lymphocytes (%) (Auto) 21.2 % Monocytes (%) (Auto) 10.1 % Eosinophils (%) (Auto) 1.8 % Basophils (%) (Auto) 0.4 % Neutrophils # (Auto) 8.4 TH/MM3 Lymphocytes # (Auto) 2.7 TH/MM3 Monocytes # (Auto) 1.3 TH/MM3 Eosinophils # (Auto) 0.2 TH/MM3 Basophils # (Auto) 0.0 TH/MM3 CBC Comment DIFF FINAL Differential Comment Prothrombin Time 10.5 SEC Prothromb Time International Ratio 1.0 RATIO Activated Partial Thromboplast Time 26.4 SEC Blood Urea Nitrogen 25 MG/DL Creatinine 1.30 MG/DL Random Glucose 140 MG/DL Calcium Level 9.1 MG/DL Magnesium Level 2.0 MG/DL Sodium Level 138 MEQ/L Potassium Level 4.2 MEQ/L Chloride Level 105 MEQ/L Carbon Dioxide Level 25.6 MEQ/L Anion Gap 7 MEQ/L Estimat Glomerular Filtration Rate 51 ML/MIN Total Creatine Kinase 93 U/L Troponin I LESS THAN 0.02 NG/ML MDM Medical Decision Making Medical Screen Exam Complete: Yes Emergency Medical Condition: Yes Medical Record Reviewed: Yes Differential Diagnosis Chest wall pain versus anxiety versus pleuritic pain versus ACS Narrative Course 56 year-old female presents to emergency department for evaluation of elevated blood pressure and chest pressure. Patient appears without distress. She is hypertensive initially. On recheck, patient's blood pressure has decreased. She is having chest pressure. She is given aspirin. Cardiac workup was initiated. Laboratory Tests Test 07/02/17 20:15 White Blood Count 12.7 TH/MM3 Red Blood Count 4.65 MIL/MM3 Hemoglobin 14.2 GM/DL Hematocrit 42.6 % Mean Corpuscular Volume 91.7 FL Mean Corpuscular Hemoglobin 30.6 PG Mean Corpuscular Hemoglobin Concent 33.4 % Red Cell Distribution Width 15.0 % Platelet Count 261 TH/MM3 Mean Platelet Volume 10.1 FL Neutrophils (%) (Auto) 66.5 % Lymphocytes (%) (Auto) 21.2 % Monocytes (%) (Auto) 10.1 % Eosinophils (%) (Auto) 1.8 % Basophils (%) (Auto) 0.4 % Neutrophils # (Auto) 8.4 TH/MM3 Lymphocytes # (Auto) 2.7 TH/MM3 Monocytes # (Auto) 1.3 TH/MM3 Eosinophils # (Auto) 0.2 TH/MM3 Basophils # (Auto) 0.0 TH/MM3 CBC Comment DIFF FINAL Differential Comment Prothrombin Time 10.5 SEC Prothromb Time International Ratio 1.0 RATIO Activated Partial Thromboplast Time 26.4 SEC Blood Urea Nitrogen 25 MG/DL Creatinine 1.30 MG/DL Random Glucose 140 MG/DL Calcium Level 9.1 MG/DL Magnesium Level 2.0 MG/DL Sodium Level 138 MEQ/L Potassium Level 4.2 MEQ/L Chloride Level 105 MEQ/L Carbon Dioxide Level 25.6 MEQ/L Anion Gap 7 MEQ/L Estimat Glomerular Filtration Rate 51 ML/MIN Total Creatine Kinase 93 U/L Troponin I LESS THAN 0.02 NG/ML Last Impressions Chest X-Ray 07/02/171952 Signed Impressions: Service Date/Time: Sunday, July 02, 2017 19:57 - CONCLUSION: No acute disease. Geoffrey Heller MD I discussed the findings with my attending physician. The troponin will be repeated at 2315. Pending no change in the patient's condition and no increase in troponin, patient will be discharged at that time. 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
[2017-07-02] MEDS ORDERED: hydrALAZINE HCL 20 MG/ML VIAL IV PUSH ONE (20:00)
[2017-07-02] MEDS ORDERED: SODIUM CHLORIDE 0.9% FLUSH 10 ML FLUSH IVF PRN (20:00)
[2017-07-02] MEDS ORDERED: ASPIRIN 81 MG CHEW TAB PO ONE (20:00)
[2017-07-02] MEDS ORDERED: SODIUM CHLORID 0.9% 500 ML INJ 500 ML IV ONE (20:00)
[2017-07-02] MEDS ORDERED: AMOX500C PO (20:04)
[2017-07-02] MEDS ORDERED: PANT40TA3 PO (20:04)
[2017-07-02] MEDS ORDERED: METR500T10 PO (20:04)
[2017-07-02 20:19] VITALS: BP_SYST 148; BP_SYST 156; BP_DIAS 83; BP_DIAS 90; PULSE 76; RESP 20; O2SAT 99
[2017-07-02 20:40] LABS: AUTOMATED NEUTROPHIL # 8.4 TH/MM3 (1.8-7.7); BASOPHIL % 0.4 % (0.0-2.0); EOSINOPHIL # 0.2 TH/MM3 (0-0.4); EOSINOPHIL % 1.8 % (0.0-4.0); HEMATOCRIT 42.6 % (35.0-46.0); HEMOGLOBIN 14.2 GM/DL (11.6-15.3); LYMPH % 21.2 % (9.0-44.0); LYMPHOCYTE # 2.7 TH/MM3 (1.0-4.8); MEAN CELL VOLUME 91.7 FL (80.0-100.0); MEAN CORPUSCULAR HEMOGLOBIN 30.6 PG (27.0-34.0); MEAN CORPUSCULAR HGB CONC 33.4 % (32.0-36.0); MEAN PLATELET VOLUME 10.1 FL (7.0-11.0); MONO % 10.1 % (0.0-8.0); MONOCYTE # 1.3 TH/MM3 (0-0.9); NEUT % 66.5 % (16.0-70.0); PLATELET COUNT 261 TH/MM3 (150-450); RED BLOOD COUNT 4.65 MIL/MM3 (4.00-5.30); WHITE BLOOD COUNT 12.7 TH/MM3 (4.0-11.0)
--- NOTE | 2017-07-02 20:46 | RADRPT ---
EXAM DATE/TIME: 07/02/2017 19:57 [facility] COMPARISON: CHEST SINGLE AP, June 01, 2017, 20:05. INDICATIONS : Chest pain. MEDICAL HISTORY : Hypertension. SURGICAL HISTORY : None. ENCOUNTER: Initial ACUITY: 1 day PAIN SCORE: 5/10 LOCATION: Bilateral chest FINDINGS: A single view of the chest demonstrates the lungs to be symmetrically aerated without evidence of mas s, infiltrate or effusion. The cardiomediastinal contours are unremarkable. Osseous structures are intact. CONCLUSION: No acute disease. Geoffrey Heller MD on July 02, 2017 at 20:44 Board Certified Radiologist. This report was verified electronically.
[2017-07-02 20:52] LABS: PROTHROMBIN TIME - PATIENT 10.5 SEC (9.8-11.6)
[2017-07-02 21:13] LABS: BICARBONATE 25.6 MEQ/L (21.0-32.0); BLOOD UREA NITROGEN 25 MG/DL (7-18); CALCIUM 9.1 MG/DL (8.5-10.1); CHLORIDE 105 MEQ/L (98-107); GLOMERULAR FILTRATION RATE 51 ML/MIN (>89); GLUCOSE,RANDOM 140 MG/DL (74-106); SODIUM (NA) 138 MEQ/L (136-145)
[2017-07-02 21:16] LABS: TROPONIN I LESS THAN 0.02 NG/ML (0.02-0.05)
[2017-07-02 21:33] VITALS: BP 162/79; PULSE 68; RESP 20; O2SAT 100
[2017-07-02 23:05] VITALS: BP 165/78; PULSE 61; RESP 20; O2SAT 100
--- NOTE | 2017-07-02 23:17 | PD ---
Physical Exam Narrative General: The patient is a well-developed well-nourished female in no acute distress. Head and Neck exam: Head is normocephalic atraumatic. Eyes: EOMI, pupils are equal round and reactive to light. Nose: Midline septum with pink mucous membranes Mouth: Dentition unremarkable. Moist mucus membranes. Posterior oropharynx is not erythematous. No tonsillar hypertrophy. Uvula midline. Airway patent. Neck: No palpable lymphadenopathy. No nuchal rigidity. No thyromegaly. Cardiovascular: Regular rate and rhythm without murmurs, gallops, or rubs. Lungs: Clear to auscultation bilaterally. No wheezes, rhonchi, or rales. Abdomen: Soft, without tenderness to palpation in all 4 quadrants of the abdomen. No guarding, rebound, or rigidity. Normal bowel sounds are audible. No tenderness on palpation of McBurney's point. Extremities: No clubbing, cyanosis, or edema. 2+ pulses in all 4 extremities. No calf tenderness on palpation. Neurologic Exam: Grossly nonfocal. Skin Exam: No rash noted. Intact skin that is warm and dry. Data Data Last Documented VS Vital Signs Date Time Temp Pulse Resp B/P (MAP) Pulse Ox O2 Delivery O2 Flow Rate FiO2 07/02/17 23:05 61 20 165/78 (107) 100 Room Air 07/02/17 21:33 2.00 07/02/17 18:46 98.4 Orders Orders Electrocardiogram (07/02/17 ) Basic Metabolic Panel (Bmp) (07/02/17 19:53) Ckmb (Isoenzyme) Profile (07/02/17 19:53) Complete Blood Count With Diff (07/02/17 19:53) Magnesium (Mg) (07/02/17 19:53) Prothrombin Time / Inr (Pt) (07/02/17 19:53) Act Partial Throm Time (Ptt) (07/02/17 19:53) Troponin I (07/02/17 19:53) Chest, Single Ap (07/02/17 19:53) Ecg Monitoring (07/02/17 19:53) Bilateral Bp Monitoring (07/02/17 19:53) Iv Access Insert/Monitor (07/02/17 19:53) Oximetry (07/02/17 19:53) Oxygen Administration (07/02/17 19:53) Aspirin Chew (Aspirin Chew) (07/02/17 20:00) Sodium Chloride 0.9% Flush (Ns Flush) (07/02/17 20:00) Sodium Chlorid 0.9% 500 Ml Inj (Ns 500 M (07/02/17 20:00) Hydralazine Inj (Apresoline Inj) (07/02/17 20:00) Ckmb (Isoenzyme) Profile (07/02/17 23:15) Troponin I (07/02/17 23:15) Electrocardiogram (07/02/17 23:15) Ed Discharge Order (07/03/17 00:41) Labs Laboratory Tests Test 07/02/17 20:15 07/02/17 23:00 White Blood Count 12.7 TH/MM3 Red Blood Count 4.65 MIL/MM3 Hemoglobin 14.2 GM/DL Hematocrit 42.6 % Mean Corpuscular Volume 91.7 FL Mean Corpuscular Hemoglobin 30.6 PG Mean Corpuscular Hemoglobin Concent 33.4 % Red Cell Distribution Width 15.0 % Platelet Count 261 TH/MM3 Mean Platelet Volume 10.1 FL Neutrophils (%) (Auto) 66.5 % Lymphocytes (%) (Auto) 21.2 % Monocytes (%) (Auto) 10.1 % Eosinophils (%) (Auto) 1.8 % Basophils (%) (Auto) 0.4 % Neutrophils # (Auto) 8.4 TH/MM3 Lymphocytes # (Auto) 2.7 TH/MM3 Monocytes # (Auto) 1.3 TH/MM3 Eosinophils # (Auto) 0.2 TH/MM3 Basophils # (Auto) 0.0 TH/MM3 CBC Comment DIFF FINAL Differential Comment Prothrombin Time 10.5 SEC Prothromb Time International Ratio 1.0 RATIO Activated Partial Thromboplast Time 26.4 SEC Blood Urea Nitrogen 25 MG/DL Creatinine 1.30 MG/DL Random Glucose 140 MG/DL Calcium Level 9.1 MG/DL Magnesium Level 2.0 MG/DL Sodium Level 138 MEQ/L Potassium Level 4.2 MEQ/L Chloride Level 105 MEQ/L Carbon Dioxide Level 25.6 MEQ/L Anion Gap 7 MEQ/L Estimat Glomerular Filtration Rate 51 ML/MIN Total Creatine Kinase 93 U/L 94 U/L Troponin I LESS THAN 0.02 NG/ML LESS THAN 0.02 NG/ML [facility] Medical Record Reviewed: Yes Supervised Visit with MATT: Yes Interpretation(s) Last Impressions Chest X-Ray 07/02/171952 Signed Impressions: Service Date/Time: Sunday, July 02, 2017 19:57 - CONCLUSION: No acute disease. Geoffrey Heller MD Narrative Course I, Dr. Conn, have reviewed the advance practice practitioner's documentation and am in agreement, met with the patient face to face, made the diagnosis, and the medical decision making was done by me. *My assessment and Findings: The patient is a 56-year-old female who presents to [facility] emergency Department with a history of noting that her blood pressure was elevated this morning. She reports that she can tell her blood pressure is elevated because she develops a sensation of feeling jittery and short of breath. The patient reports that it persisted throughout the day today, that she came in for evaluation and treatment. During the course of the patients emergency department visit, the patients history, examination, and differential diagnosis were reviewed with the patient. The patient was placed on a electronic device monitor with oximetry and frequent blood pressure monitoring. The patient had IV access obtained and blood work sent for analysis. The patient was initially provided hydralazine 10 mg IV 1 for elevated blood pressure, normal saline a 500 mL bolus 1. The patient was given aspirin 162 mg by mouth 1. The patients laboratory studies were reviewed and remarkable for white count 12.7, hemoglobin 14.2, platelets 261, monocytes 10.1, basic metabolic profile is remarkable for a creatinine of 1.30, BUN 25, glucose 140, CPK 93, troponin I less than 0.02, PT 10.5, PTT 26.4. A second ECG reveals a sinus rhythm with a heart rate of 64, moderate voltage criteria for LVH, no acute ST segment elevation. T waves are inverted in lead 3. This is similar to the patient's prior ECG done at this facility. The patient's troponin I continued to be less than 0.02. Radiology studies were reviewed and remarkable for a chest x-ray that shows no acute cardiopulmonary disease. The patient on reexamination reported feeling improved. The patient will be discharged home. I recommended that the patient follow up with her primary care physician in the morning to discuss optimizing her blood pressure medication regimen. She may need one of her blood pressure medications increased, versus adding on an additional new blood pressure medication. The patient is resting comfortably and feels better, is alert and in no distress. The patients results and examination findings were discussed with the patient. The repeat examination is unremarkable and benign. The history, exam, diagnostic testing, and current condition do not suggest any significant pathology to warrant further testing, continued ED treatment, admission, or surgical evaluation at this point. The vital signs have been stable. The patient does not have uncontrollable pain, intractable vomiting, or other significant symptoms. The patient's condition is stable and appropriate for discharge. The patient will pursue further outpatient evaluation with a primary care physician or other designated or consulting physician as indicated in the discharge instructions. The patient expressed understanding and was agreeable with this plan. 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
[2017-07-02 23:43] LABS: TROPONIN I LESS THAN 0.02 NG/ML (0.02-0.05)
[2017-07-03 01:13] VITALS: BP 126/69
--- NOTE | 2017-07-03 15:46 | EKG ---
Date Performed: 07/02/2017 Time Performed: 18:54:33 PTAGE: 56 years EKG: Sinus rhythm MODERATE VOLTAGE CRITERIA FOR LVH, CONSIDER NORMAL VARIANT BORDERLINE ECG Compared to prior tracing no significant change PREVIOUS TRACING : 06/01/2017 20.16 DOCTOR: Jl Rosenberg Interpretating Date/Time 07/03/2017 15:44:32
--- NOTE | 2017-07-03 15:46 | EKG ---
Date Performed: 07/02/2017 Time Performed: 23:01:31 PTAGE: 56 years EKG: Sinus rhythm MODERATE VOLTAGE CRITERIA FOR LVH, CONSIDER NORMAL VARIANT BORDERLINE ECG Compared to prior tracing no significant change PREVIOUS TRACING : 07/02/2017 18.54.33 DOCTOR: Jl Rosenberg Interpretating Date/Time 07/03/2017 15:45:18
== END 2017-07-03 01:24 | disposition home or self-care (01) ==
LOC: NEPE 18:43
DX: R07.9 Chest pain, unspecified (principal); I10 Essential (primary) hypertension; I48.91 Unspecified atrial fibrillation; Z79.01 Long term (current) use of anticoagulants
CPT/HCPCS: 71010; 80048; 82550; 83735; 84484; 85025; 85610; 85730; 93005; 96360; 99285; J7040

== ENCOUNTER 2017-07-24 08:02 | Emergency (ER) | payer OTHER ==
[~2017-07-24] VITALS: Ht 175.3 cm; Wt 100.0 kg
[~2017-07-24 08:02] MED LIST changes: +AMOX500C PO; +ASPI-516 CHEW; -ASPI81CH CHEW; +METR1TAB76 PO; +PANT40TA3 PO; +TRAZ100T10 PO; -TRAZ100T6 PO
[2017-07-24 08:04] VITALS: BP 177/84; PULSE 75; RESP 14; TEMP 98.2; O2SAT 97
[2017-07-24] MEDS ORDERED: SODIUM CHLORIDE 0.9% FLUSH 10 ML FLUSH IVF PRN (08:30)
[2017-07-24 09:02] LABS: AUTOMATED NEUTROPHIL # 3.5 TH/MM3 (1.8-7.7); BASOPHIL % 0.6 % (0.0-2.0); EOSINOPHIL # 0.3 TH/MM3 (0-0.4); EOSINOPHIL % 4.1 % (0.0-4.0); HEMO FLAGS DIFF FINAL; LYMPH % 30.4 % (9.0-44.0); MEAN CELL VOLUME 92.3 FL (80.0-100.0); MEAN CORPUSCULAR HEMOGLOBIN 30.8 PG (27.0-34.0); MEAN CORPUSCULAR HGB CONC 33.3 % (32.0-36.0); NEUT % 53.9 % (16.0-70.0); PLATELET COUNT 228 TH/MM3 (150-450); RED BLOOD COUNT 4.76 MIL/MM3 (4.00-5.30); RED CELL DISTRIBUTION WIDTH 15.1 % (11.6-17.2); WHITE BLOOD COUNT 6.5 TH/MM3 (4.0-11.0)
--- NOTE | 2017-07-24 09:10 | RADRPT ---
EXAM DATE/TIME: 07/24/2017 09:00 [facility] COMPARISON: CHEST SINGLE AP, July 02, 2017, 19:57. INDICATIONS : CVA. Patient states she woke up this morning and could not move her left arm. MEDICAL HISTORY : Cardiovascular disease. Lupus. Hypertension SURGICAL HISTORY : Hysterectomy. ENCOUNTER: Initial ACUITY: 1 day PAIN SCORE: 0/10 LOCATION: Bilateral chest FINDINGS: Portable AP view of the chest demonstrates a normal-sized cardiac silhouette. No effusion, consolidat ion, or pneumothorax is visualized. The bones and soft tissues demonstrate no acute abnormality. EKG lines overlie the patient. CONCLUSION: No acute cardiopulmonary abnormality is identified. Geoffrey Kearns MD on July 24, 2017 at 9:08 Board Certified Radiologist. This report was verified electronically.
[2017-07-24] MEDS ORDERED: HYDR-3583 PO (09:11)
[2017-07-24] MEDS ORDERED: SERO200T PO (09:11)
--- NOTE | 2017-07-24 09:13 | PD ---
HPI Chief Complaint: Numbness/Tingling Time Seen by Provider: 08:52 Travel History International Travel<30 days: No Contact w/Intl Traveler<30days: No Traveled to known affect area: No History of Present Illness HPI 56 year old female presents to the ED with numbness/tingling in her left hand. Symptoms were present when patient awoke this morning. She states that her hand was "" and she was unable to move it. She used her right hand to elevate her left arm and she felt return of circulation. Symptoms completely resolved in <1 minute. Patient says for the past week her head has felt "funny" like "swelling and then it goes back down." She denies headache, dizziness, nausea, vomiting, changes in vision, chest pain, trauma, falls, syncope, fever rashes, or cold symptoms. No similar symptoms in face or other extremities. No similar episodes in the past. Patient has history of aneurysm behind left eye and TIAs. During TIA she felt lightheaded, dizzy, and off- balance. None of these symptoms present at this time. She states that she is left-handed and is not having problems with using her left hand after the initial episode. She drove herself in today without issues. She is ambulatory without issues. Modifying Factors: None Associated Signs & Symptoms: Left hand paresthesias this morning, state head is feeling "funny" Risk Factors: Previous TIA, history of aneurysm PFSH Past Medical History Arthritis: No Asthma: No Atrial Fibrillation: Yes Autoimmune Disease: No Anxiety: Yes Depression: Yes (PATIENT STATES SOMETIMES) Heart Rhythm Problems: Yes (A Fib,[place] 2012) Cancer: No Cardiac Catheterization: Yes Cardiovascular Problems: Yes (HYPERTENSION / LEFT EYE ANEURYSM / A-FIB) High Cholesterol: Yes Chemotherapy: No Chest Pain: Yes Congestive Heart Failure: No COPD: No Cerebrovascular Accident: Yes (left eye 2 small CVA) Diabetes: No Diminished Hearing: No Endocrine: No Gastrointestinal Disorders: Yes (LIVER ENZMES ELEVATED, GERD) GERD: Yes Genitourinary: No Headaches: Yes Hiatal Hernia: No Hypertension: Yes Immune Disorder: Yes (denies obed) Insomnia: Yes Kidney Stones: No Musculoskeletal: Yes Neurologic: Yes (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, strokes x 2, 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) Psychiatric: Yes (ANXIETY, DEPRESSION) Reproductive: No Respiratory: No Immunizations Current: Yes Migraines: No Radiation Therapy: No Renal Failure: No Seizures: No Sickle Cell Disease: No Sleep Apnea: No Thyroid Disease: No Ulcer: No Influenza Vaccination: Yes ?: Not Menopausal: Yes : 6 Para: 4 Miscarriage: 1 : 1 Tubal Ligation: Yes Past Surgical History Abdominal Surgery: No AICD: No Cardiac Surgery: No Section: Yes (1) Ear Surgery: No Endocrine Surgery: No Eye Surgery: No Genitourinary Surgery: No Gynecologic Surgery: Yes (, PARTIAL HYSTERECTOMY) Hysterectomy: Yes (partial 2007) Joint Replacement: No Oral Surgery: No Pacemaker: No Thoracic Surgery: No Other Surgery: Yes Social History Alcohol Use: No Tobacco Use: No Substance Use: No Allergies-Medications (Allergen,Severity, Reaction): Coded Allergies: No Known Allergies (Verified Adverse Reaction, Unknown, 07/24/17) Reported Meds & Prescriptions Reported Meds & Active Scripts Active Reported Seroquel (Quetiapine Fumarate) 200 Mg Tab 200 Mg PO HS Hydrocodone-Acetaminophen 10-325 mg Tab 1 Tab PO Q4H PRN Pantoprazole (Pantoprazole Sodium) 40 Mg Tab 40 Mg PO BID Trazodone (Trazodone HCl) 100 Mg Tablet 100 Mg PO HS Eliquis (Apixaban) 5 Mg Tab 5 Mg PO BID Aspirin 81 Mg Chew 81 Mg CHEW DAILY Clonidine (Clonidine HCl) 0.1 Mg Tab 0.1 Mg PO BID Buspirone (Buspirone HCl) 15 Mg Tab 15 Mg PO BID PRN Nitroglycerin SL (Nitroglycerin) 0.4 Mg Subl 0.4 Mg SL DIRECTED PRN ONE TABLET UNDER THE TONGUE NEEDED FOR CHEST PAIN, MAY REPEAT EVERY FIVE MINUTES FOR A TOTAL OF 3 DOSES OR CALL 911 IF NO RELIEF Metoprolol Tartrate 50 Mg Tab 50 Mg PO BID Review of Systems Except as stated in HPI: all other systems reviewed are Neg Physical Exam Narrative GENERAL: Well-developed. Well-nourished. Lying in bed. In no acute distress. Follows commands and answers questions appropriately. SKIN: Warm and dry. HEAD: Atraumatic. Normocephalic. EYES: Pupils equal and round. No scleral icterus. No injection or drainage. Extraocular movements in tact ENT: No nasal bleeding or discharge. Mucous membranes pink and moist. NECK: Trachea midline. No JVD. CARDIOVASCULAR: Regular rate and rhythm. Radial pulses 2+ bilaterally. RESPIRATORY: No accessory muscle use. Clear to auscultation. Breath sounds equal bilaterally. GASTROINTESTINAL: Abdomen soft, non-tender, nondistended. Hepatic and splenic margins not palpable. MUSCULOSKELETAL: Extremities without clubbing, cyanosis, or edema. No obvious deformities. NEUROLOGICAL: Awake and alert. No obvious cranial nerve deficits. No pronator drift observed. Motor grossly within normal limits. Five out of 5 muscle strength in the arms and legs. 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 Normal speech. PSYCHIATRIC: Appropriate mood and affect; insight and judgment normal. Data Data Last Documented VS Vital Signs Date Time Temp Pulse Resp B/P (MAP) Pulse Ox O2 Delivery O2 Flow Rate FiO2 07/24/17 10:14 62 16 142/75 (97) 100 Room Air 07/24/17 08:04 98.2 Orders Orders Electrocardiogram (07/24/17 08:22) Prothrombin Time / Inr (Pt) (07/24/17 08:22) Act Partial Throm Time (Ptt) (07/24/17 08:22) Complete Blood Count With Diff (07/24/17 08:22) Comprehensive Metabolic Panel (07/24/17 08:22) Ct Brain W/O Iv Contrast(Rout) (07/24/17 08:22) Chest, Single Ap (07/24/17 08:22) Ecg Monitoring (07/24/17 08:22) Iv Access Insert/Monitor (07/24/17 08:22) Oximetry (07/24/17 08:22) Sodium Chloride 0.9% Flush (Ns Flush) (07/24/17 08:30) Ed Discharge Order (07/24/17 10:43) Labs Laboratory Tests Test 07/24/17 08:50 White Blood Count 6.5 TH/MM3 Red Blood Count 4.76 MIL/MM3 Hemoglobin 14.7 GM/DL Hematocrit 44.0 % Mean Corpuscular Volume 92.3 FL Mean Corpuscular Hemoglobin 30.8 PG Mean Corpuscular Hemoglobin Concent 33.3 % Red Cell Distribution Width 15.1 % Platelet Count 228 TH/MM3 Mean Platelet Volume 9.5 FL Neutrophils (%) (Auto) 53.9 % Lymphocytes (%) (Auto) 30.4 % Monocytes (%) (Auto) 11.0 % Eosinophils (%) (Auto) 4.1 % Basophils (%) (Auto) 0.6 % Neutrophils # (Auto) 3.5 TH/MM3 Lymphocytes # (Auto) 2.0 TH/MM3 Monocytes # (Auto) 0.7 TH/MM3 Eosinophils # (Auto) 0.3 TH/MM3 Basophils # (Auto) 0.0 TH/MM3 CBC Comment DIFF FINAL Differential Comment Prothrombin Time 10.7 SEC Prothromb Time International Ratio 1.0 RATIO Activated Partial Thromboplast Time 28.2 SEC Blood Urea Nitrogen 14 MG/DL Creatinine 0.76 MG/DL Random Glucose 88 MG/DL Total Protein 8.1 GM/DL Albumin 3.5 GM/DL Calcium Level 9.3 MG/DL Alkaline Phosphatase 144 U/L Aspartate Amino Transf (AST/SGOT) 29 U/L Alanine Aminotransferase (ALT/SGPT) 44 U/L Total Bilirubin 0.5 MG/DL Sodium Level 138 MEQ/L Potassium Level 4.4 MEQ/L Chloride Level 103 MEQ/L Carbon Dioxide Level 27.0 MEQ/L Anion Gap 8 MEQ/L Estimat Glomerular Filtration Rate 96 ML/MIN MDM Medical Decision Making Medical Screen Exam Complete: Yes Emergency Medical Condition: Yes Medical Record Reviewed: Yes Interpretation(s) EKG shows NSR, no ST elevation or depression, and no arrhythmias. No significant T-wave inversions. Laboratory Tests Test 07/24/17 08:50 Monocytes (%) (Auto) 11.0 % (0.0-8.0) Eosinophils (%) (Auto) 4.1 % (0.0-4.0) Alkaline Phosphatase 144 U/L (45-117) Last [address] 07/24/17821 Signed Impressions: Service Date/Time: Monday, July 24, 2017 10:08 - CONCLUSION: Stable noncontrast head CT. No acute intracranial abnormality is identified. Geoffrey Kearns MD Chest X-Ray 07/24/17821 Signed Impressions: Service Date/Time: Monday, July 24, 2017 09:00 - CONCLUSION: No acute cardiopulmonary abnormality is identified. Geoffrey Kearns MD Differential Diagnosis Left hand weakness and paresthesias: Metabolic issues versus vascular compromise versus TIA/CVA Narrative Course Vital signs are stable in the ER. Patient has no focal neurological deficits on evaluation in the ER. Symptoms have completely gone away. It appears to have lasted only a few minutes after the patient shifted positions. This sounds more like a neurapraxia, possibly secondary to temporary compression of vessel or nerve while sleeping. Pulses are present and equal bilaterally. I'm not suspecting other acute processes at this point. CT the brain did not show any signs of acute processes. She is not having any headaches, vision change, or any other symptoms at this time. My plan would be to release her at this point with follow-up to primary care doctor. Return for any worsening in symptoms as necessary. The plan has discussed with her and she states understanding. Diagnosis Primary Impression: Arm paresthesia, left Disposition: 01 DISCHARGE HOME Condition: Stable Cyndie Ivy MD Jul 24, 2017 09:13
[2017-07-24 09:19] LABS: ALT (GPT) 44 U/L (10-53)
[2017-07-24 09:22] LABS: APTT (PATIENT) 28.2 SEC (24.3-30.1); PROTHROMBIN TIME - PATIENT 10.7 SEC (9.8-11.6)
[2017-07-24 09:23] LABS: ALKALINE PHOSPHATASE 144 U/L (45-117); ANION GAP 8 MEQ/L (5-15); AST (GOT) 29 U/L (15-37); BLOOD UREA NITROGEN 14 MG/DL (7-18); CHLORIDE 103 MEQ/L (98-107); GLOMERULAR FILTRATION RATE 96 ML/MIN (>89); SODIUM (NA) 138 MEQ/L (136-145); TOTAL BILIRUBIN ADULT 0.5 MG/DL (0.2-1.0)
[2017-07-24 09:25] LABS: POTASSIUM 4.4 MEQ/L (3.5-5.1)
[2017-07-24 10:14] VITALS: BP 142/75; PULSE 62; RESP 16; O2SAT 100
--- NOTE | 2017-07-24 10:19 | RADRPT ---
EXAM DATE/TIME: 07/24/2017 10:08 [facility] COMPARISON: CT BRAIN W/O CONTRAST, June 01, 2017, 20:54. INDICATIONS : Left hand numbness this morning, since resolved. Evaluate for cerebrovascular accident. RADIATION DOSE: 37.13 CTDIvol (mGy) MEDICAL HISTORY : Aneurysm, intracranial. Hypertension. SURGICAL HISTORY : Hysterectomy. ENCOUNTER: Initial ACUITY: 1 day PAIN SCALE: 0/10 LOCATION: cranial TECHNIQUE: Multiple contiguous axial images were obtained of the head. Using automated exposure control and adj ustment of the mA and/or kV according to patient size, radiation dose was kept as low as reasonably a chievable to obtain optimal diagnostic quality images. DICOM format image data is available electro nically for review and comparison. FINDINGS: CEREBRUM: The ventricles are normal. No evidence of midline shift, mass lesion, hemorrhage or acute infarction . No extra-axial fluid collections are seen. POSTERIOR FOSSA: The cerebellum and brainstem demonstrate no acute finding. The 4th ventricle is midline. The cerebe llopontine angle is unremarkable. EXTRACRANIAL: Visualized sinuses are clear SKULL: The calvaria is intact. No evidence of skull fracture. CONCLUSION: Stable noncontrast head CT. No acute intracranial abnormality is identified. Geoffrey Kearns MD on July 24, 2017 at 10:14 Board Certified Radiologist. This report was verified electronically.
--- NOTE | 2017-07-24 14:01 | EKG ---
Date Performed: 07/24/2017 Time Performed: 08:29:53 PTAGE: 56 years EKG: SINUS BRADYCARDIA MINIMAL VOLTAGE CRITERIA FOR LVH, CONSIDER NORMAL VARIANT BORDERLINE ECG PREVIOUS TRACING : 07/02/2017 23.01 Compared to prior tracing no significant change DOCTOR: Monroe Galvan Interpretating Date/Time 07/24/2017 13:58:55
== END 2017-07-24 11:26 | disposition home or self-care (01) ==
LOC: NEPE 08:02
DX: R20.2 Paresthesia of skin (principal); R00.1 Bradycardia, unspecified; I48.91 Unspecified atrial fibrillation; I10 Essential (primary) hypertension; E78.00 Pure hypercholesterolemia, unspecified; K21.9 Gastro-esophageal reflux disease without esophagitis; F41.9 Anxiety disorder, unspecified; F32.9 Major depressive disorder, single episode, unspecified; Z86.73 Personal history of transient ischemic attack (TIA), and cerebral infarction without residual deficits
CPT/HCPCS: 70450; 71010; 80053; 85025; 85610; 85730; 93005

== ENCOUNTER → 2017-08-15 | Outpatient (CLI) | payer OTHER ==
[~2017-08-15] VITALS: Ht 175.3 cm; Wt 103.5 kg
[~2017-08-15] MED LIST changes: -AMOX500C PO; -ATOR40TA16 PO; +CHLORHEXIDINE GLUCONATE 2 % 1 PACK (2 CLOTHS) TOPICAL PRN; +CYCL5TAB PO; -HYDR-3535 PO; +HYDR-3583 PO; +LACTATED RINGER'S 1000 ML IV PRN; +METOPROLOL TARTRATE 25 MG TAB PO PRN; -METR1TAB76 PO; +POVIDONE IODINE 5% (ANTISEPSIS KIT) 4 APPLICATIONS EACH NARE PRN; +PROPOFOL 200 MG/20 ML AMP IV ONE; +SERO200T PO; +SODIUM CHLORID 0.9% 500 ML IV PRN; +WELLTAB39 PO; +ePHEDrine/NS 25 MG/5 ML SYR IV ONE
--- NOTE | 2017-08-15 11:17 | GIPROC ---
[facility] [address] [facility]. [facility] [place], [address] EGD PROCEDURE REPORT EXAM DATE: 08/15/2017 PATIENT NAME: Lisa Solomon MR #: [id number] BIRTHDATE: 1960 ATTENDING: Shira Sheriff MD ORDER #: [id number] OFFICE SUPERVISOR: Olman Cavazos and Luisa Alvarez STATUS: outpatient INDICATIONS: The patient is a 56 yr old female here for an EGD due to epigastric abdominal pain and history of esophageal reflux PROCEDURE PERFORMED: EGD w/ biopsy MEDICATIONS: None and Per Anesthesia. TOPICAL ANESTHETIC: CONSENT: The patient understands the risks and benefits of the procedure and understands that these risks include, but are not limited to: sedation, allergic reaction, infection, perforation and/or bleeding. Alternative means of evaluation and treatment include, among others: physical exam, x-rays, and/or surgical intervention. The patient elects to proceed with this endoscopic procedure. medical equipment was checked for proper function. Hand hygiene and appropriate measures for infection prevention was taken. After the risks, benefits and alternatives of the procedure were thoroughly explained, Informed consent was verified, confirmed and timeout was successfully executed by the treatment team. The patient was anesthetized with topical anesthesia and the Pentax EG-[id number] endoscope was introduced through the mouth and advanced to the second portion of the duodenum. Retroflexed views revealed no abnormalities The gastroscope was then slowly withdrawn and removed. ESOPHAGUS: The mucosa of the esophagus appeared normal. STOMACH: There was erythematous moderate gastritis in the gastric body. A biopsy was performed using cold forceps. Sample sent for histology. DUODENUM: Moderate duodenal inflammation was found in the bulb and second portion of the duodenum. ADVERSE EVENTS: There were no complications. IMPRESSIONS: 1. The esophagus appeared normal 2. There was erythematous gastritis in the gastric body; biopsy was performed 3. Duodenal inflammation was found in the bulb and second portion of the duodenum 4. Retroflexed views revealed no abnormalities RECOMMENDATIONS: 1. Await biopsy results. Biopsy results will not be ready for 7-10 days. If you don't hear from us in two weeks, call our office for biopsy results. 2. Anti-reflux regimen 3. Continue PPI 4. Avoid NSAIDS PATIENT CONDITION: stable DISPOSITION: Home REPEAT EXAM: Return 1 year EGD pending biopsy results Shira Sheriff MD eSigned: Shira Sheriff MD 08/15/2017 11:16 AM cc: Kathleen Buck M.D. PATIENT NAME: Lisa Solomon MR#: [id number]
[2017-08-15 11:40] VITALS: BP 112/60; PULSE 62; RESP 18; TEMP 98.1; O2SAT 98
== END ==
LOC: HEND 07:51
PROVIDERS: ATTEND Internal Medicine Gastroenterology
DX: K29.50 Unspecified chronic gastritis without bleeding (principal); I10 Essential (primary) hypertension; I48.91 Unspecified atrial fibrillation; Z86.19 Personal history of other infectious and parasitic diseases
CPT/HCPCS: 88305; 88312

== ENCOUNTER 2018-02-19 12:48 | Emergency (ER) | payer SELFPAY ==
[~2018-02-19] VITALS: Ht 175.3 cm; Wt 108.0 kg
[~2018-02-19 12:48] MED LIST changes: -CHLORHEXIDINE GLUCONATE 2 % 1 PACK (2 CLOTHS) TOPICAL PRN; -LACTATED RINGER'S 1000 ML IV PRN; -METOPROLOL TARTRATE 25 MG TAB PO PRN; -POVIDONE IODINE 5% (ANTISEPSIS KIT) 4 APPLICATIONS EACH NARE PRN; -PROPOFOL 200 MG/20 ML AMP IV ONE; -SODIUM CHLORID 0.9% 500 ML IV PRN; -ePHEDrine/NS 25 MG/5 ML SYR IV ONE
[2018-02-19 13:26] VITALS: BP 163/77; PULSE 77; RESP 18; TEMP 98.7; O2SAT 96
--- NOTE | 2018-02-19 14:30 | PD ---
HPI . Numbness Chief Complaint: Numbness/Tingling Time Seen by Provider: 14:17 Travel History International Travel<30 days: No Contact w/Intl Traveler<30days: No Traveled to known affect area: No History of Present Illness HPI Patient presents with chief complaint of bilateral hand and bilateral feet numbness. Onset was a couple of months ago. She admits that she has not seen a primary care provider for this. Her symptoms are exacerbated by napping. She states that she does not work so does not believe that she has any sort of repetitive motion injury. She states that she is not diabetic. She rates her pain at 10/10. History Past Medical Histgory Menopausal: Yes Hx Cancer: No Hx Chemotherapy: No Hx Radiation Therapy: No Social History Alcohol Use: No Tobacco Use: No Allergies-Medications (Allergen,Severity, Reaction): Coded Allergies: No Known Allergies (Verified Allergy, Unknown, 08/15/17) Reported Meds & Prescriptions Reported Meds & Active Scripts Active Reported Flexeril (Cyclobenzaprine HCl) 5 Mg Tab 5 Mg PO TID Wellbutrin Xl 24 HR (Bupropion HCl) 300 Mg Tab 300 Mg PO DAILY Seroquel (Quetiapine Fumarate) 200 Mg Tab 200 Mg PO HS Hydrocodone-Acetaminophen 10-325 mg Tab 1 Tab PO Q4H PRN Pantoprazole (Pantoprazole Sodium) 40 Mg Tab 40 Mg PO BID Trazodone (Trazodone HCl) 100 Mg Tablet 100 Mg PO HS Eliquis (Apixaban) 5 Mg Tab 5 Mg PO BID Aspirin 81 Mg Chew 81 Mg CHEW DAILY Clonidine (Clonidine HCl) 0.1 Mg Tab 0.1 Mg PO BID Buspirone (Buspirone HCl) 15 Mg Tab 15 Mg PO BID PRN Nitroglycerin SL (Nitroglycerin) 0.4 Mg Subl 0.4 Mg SL DIRECTED PRN ONE TABLET UNDER THE TONGUE NEEDED FOR CHEST PAIN, MAY REPEAT EVERY FIVE MINUTES FOR A TOTAL OF 3 DOSES OR CALL 911 IF NO RELIEF Metoprolol Tartrate 50 Mg Tab 50 Mg PO BID Review of Systems Except as stated in HPI: all other systems reviewed are Neg Neurologic: Positive: Paresthesia Physical Exam Narrative GENERAL: Awake and alert and in no acute distress. SKIN: Warm and dry. Normal color and turgor. Normal tactile skin temperature. HEAD: Normocephalic/atraumatic. EYES: Pupils are equal. Extraocular movements are intact. NECK: Normal range of motion. Supple. CARDIOVASCULAR: Regular rate and rhythm. Full and equal distal pulses. Normal capillary refill. RESPIRATORY: Nonlabored respirations. Normal sats. MUSCULOSKELETAL: Atraumatic. Normal muscle tone. Normal movement of her hands and feet. NEUROLOGICAL: A and O 3. Nonfocal. PSYCHIATRIC: Appropriate mood and affect. Data Data Last Documented VS Vital Signs Date Time Temp Pulse Resp B/P (MAP) Pulse Ox O2 Delivery O2 Flow Rate FiO2 02/19/18 14:17 Room Air 02/19/18 13:26 98.7 77 18 163/77 (105) 96 MDM Medical Screen Exam Complete: Yes Emergency Medical Condition: No Narrative Course A medical screening exam was performed: At the time of evaluation the presenting medical condition was determined not to be of an emergent nature. The patient was given the option of receiving additional care, but declined. Patient was given options for additional community resources from which to obtain care. The Patient Has Been advised to seek medical attention for their presenting complaint. The patient has been advised to return to the ER at any time if an emergent condition develops. Primary Impression: Encounter for medical screening examination Condition: Stable Heather Franklin MD Feb 19, 2018 14:30
== END 2018-02-19 14:28 | disposition left against medical advice (07) ==
LOC: NEPD 12:48
DX: R20.0 Anesthesia of skin (principal)
CPT/HCPCS: 99281